=== PATIENT | female | born 1990 | race Caucasian/White ===

== ENCOUNTER 2019-12-23 18:19 | Outpatient (CLI) | payer OTHER, SELFPAY ==
--- NOTE | ~2019-12-23 | XR_ITS ---
EXAMINATION: XR knee LT min 4V DATE: 12/23/2019 18:53 INDICATION: Left knee pain TECHNIQUE: Weight bearing anteroposterior and Guevara, sunrise, and flexed lateral views of the lef t knee were obtained COMPARISON: None. FINDINGS: Alignment is normal. No fracture. Joint spaces are normal. No left knee joint effusion. Soft tissues are unremarkable. IMPRESSION: 1. Normal left knee radiographs. Reviewed, dictated and finalized at location A. R/PHOTOGRAPHER
--- NOTE | ~2019-12-23 | XR_ITS ---
EXAMINATION: XR knee RT min 4V DATE: 12/23/2019 18:53 INDICATION: Right knee pain TECHNIQUE: Weight bearing anteroposterior and Guevara, sunrise, and flexed lateral views of the rig ht knee were obtained COMPARISON: None. FINDINGS: Alignment is normal. No fracture. Joint spaces are normal. Small marginal osteophyte at the cephalad aspect of the patella consistent with likely minimal osteoarthritis. No right knee joint effusion. S oft tissues are unremarkable. IMPRESSION: 1. Likely minimal patellofemoral osteoarthritis at the right knee with small marginal osteophytes but relatively preserved joint space. Reviewed, dictated and finalized at location A. LA OPERATOR INSULATION IMPRESSION: 1. Likely minimal patellofemoral osteoarthritis at the right knee with small ma rginal osteophytes but relatively preserved joint space.
== END 2019-12-23 18:20 | disposition home or self-care (01) ==
LOC: ANHIMG 18:26
PROVIDERS: PCP Physician Assistant; Visit Provider Physician Assistant
DX: M25.561 Pain in right knee (principal)
CPT/HCPCS: 73564

== ENCOUNTER 2020-01-12 16:51 | Emergency (ER) | payer OTHER, SELFPAY ==
[2020-01-12 17:38] VITALS: BP 117/67; PULSE 82; RESP 16; TEMP 36.8; O2SAT 100
[2020-01-12 17:59] LABS: Basophils Percent Auto 0.7 % (0.2-1.2); Eosinophils Absolute Auto 0.1 K/mm3 (0-0.3); Eosinophils Percent Auto 1.1 % (0-4.4); Hematocrit 39.2 % (37.0-47.0); Hemoglobin 12.6 g/dL (12.0-15.0); Immature Granulocyte Absolute 0.01 K/mm3 (0.00-0.031); Immature Granulocyte Percent A 0.2 % (0-0.5); Lymphocytes Absolute Auto 1.82 K/mm3 (0.9-3.2); Mean Corpuscular HGB Conc 32.1 g/dl (32-36); Mean Corpuscular Volume 87.1 fl (80-100); Mean Platelet Volume 9.9 fl (7.4-10.4); Monocytes Absolute Auto 0.5 K/mm3 (0.1-0.6); Monocytes Percent Auto 8.6 % (2.6-8.5); Neutrophils Percent Auto 55.4 % (45.5-73.1); Platelet Count Result 208 k/mm3 (150-375); White Blood Count 5.4 K/mm3 (4.5-10.0)
[2020-01-12 18:04] LABS: Add Urine Microscopic? YES; Appearance Urine Clear (Clear); Bilirubin Urine Negative (Negative); Blood Urine 1+ (Negative); Color Urine Yellow (Yellow); Glucose Urine UA Negative (Negative); Ketones Urine Negative (Negative); Leukocyte Esterase Ur Negative LEU/UL (Negative); Mucus Urine Rare /lpf; Nitrate Urine Negative (Negative); Protein Urine Negative (Negative); RBC Urine 0-2 /hpf (0-2); Specific Grav Ur 1.014 (1.001-1.035); Squamous Epithelial Cell Urine Rare /hpf (Few); Urobilinogen Urine Negative mg/dL (<2.0); WBC Urine 0-3 /hpf
[2020-01-12 18:08] LABS: Chloride 101 mmol/L (98-107)
[2020-01-12 18:35] LABS: Alanine Aminotransferase 20 U/L (4-35); Albumin Level 4.4 g/dL (3.5-5.1); Alkaline Phosphatase 88 U/L (38-126); Aspartate Amino Transferase 25 U/L (14-36); Bilirubin,Total 0.4 mg/dL (0.2-1.3); Blood Urea Nitrogen 11 mg/dL (7-17); Calcium 8.8 mg/dL (8.4-10.2); Carbon Dioxide 25 mmol/L (22-30); Estimated CRCL calculation 129 ml/min; Estimated Glomerular Filt Rate > 60; Glucose 84 mg/dL (65-105); Lipase 47 U/L (23-300); Potassium 4.1 mmol/L (3.4-5.0); Sodium 140 mmol/L (137-145)
--- NOTE | 2020-01-12 19:00 | PC.NURSE ---
Pt left before being seen by provider. Ambulated to vehicle.
== END 2020-01-12 19:00 | disposition left against medical advice (07) ==
PROVIDERS: Emergency Provider Emergency Medicine; PCP Physician Assistant
DX: R10.10 Upper abdominal pain, unspecified (principal)
CPT/HCPCS: 36415; 80053; 81001; 81025; 83690; 85025; 99199

== ENCOUNTER 2020-01-28 10:49 | Outpatient (CLI) | payer OTHER, SELFPAY ==
--- NOTE | ~2020-01-28 | US_ITS ---
EXAMINATION: US pelvic complete w TV DATE: 01/28/2020 11:43 INDICATION: History of uterine fibroids Comparison:No prior studies for comparison. TECHNIQUE: Multiple transabdominal and endovaginal sonographic images of the pelvis performed. FINDINGS: The uterus measures 9.1 x 6.3 x 4.6 cm. There is uterine fibroid measuring 1.5 x 1.4 x 1.3 cm. The endometrial complex measures 11 mm. The right ovary measures 3.7 x 3 x 2.5 cm and the left ovary measures 3.2 x 2.1 x 2 cm. There are sm all follicles in each ovary. There is no free fluid in the pelvis. There are no abnormal masses seen on either side. IMPRESSION: 1. Small uterine fibroid measuring 1.5 cm maximum dimension. Reviewed, dictated and finalized at location A.
== END 2020-01-28 10:50 | disposition home or self-care (01) ==
LOC: ANHIMG 10:57
PROVIDERS: PCP Physician Assistant; Visit Provider Obstetrics & Gynecology Gynecology
DX: D25.9 Leiomyoma of uterus, unspecified (principal)
CPT/HCPCS: 76830; 76856

== ENCOUNTER 2020-05-07 11:36 | Outpatient (CLI) | payer OTHER, SELFPAY ==
--- NOTE | ~2020-05-07 | XR_ITS ---
EXAMINATION: XR lumbar spine 2-3V DATE: 05/07/2020 12:04 INDICATION: Low back pain TECHNIQUE: Anteroposterior and lateral views of the lumbar spine, and cone-down lateral view of the l umbosacral junction were obtained. COMPARISON: None. FINDINGS: There is mild loss of intervertebral disc space height at L5-S1. The vertebral body heights and alignment are maintained. No fracture is identified. There is mild facet osteoarthritis of the l ower lumbar spine. IMPRESSION: 1. Mild lower lumbar spondylosis without acute abnormality. Reviewed, dictated and finalized at location A.
== END 2020-05-07 11:37 | disposition home or self-care (01) ==
LOC: ANHIMG 11:41
PROVIDERS: PCP Physician Assistant; Visit Provider Physician Assistant
DX: M54.5 Low back pain (principal); M47.816 Spondylosis without myelopathy or radiculopathy, lumbar region
CPT/HCPCS: 72100

== ENCOUNTER 2020-05-14 00:26 | Outpatient (CLI) | payer OTHER, SELFPAY ==
[2020-05-14 20:58] LABS: SARS-CoV-2 RNA PCR Negative
== END 2020-05-14 00:27 | disposition home or self-care (01) ==
LOC: ANHCOVIDDT 00:26
PROVIDERS: PCP Physician Assistant; Visit Provider Obstetrics & Gynecology Gynecology
DX: Z01.812 Encounter for preprocedural laboratory examination (principal); Z11.59 Encounter for screening for other viral diseases
CPT/HCPCS: 87635; C9803; U0003

== ENCOUNTER 2020-05-17 01:32 | Day surgery (SDC) | payer OTHER, SELFPAY ==
[2020-05-10 11:36] VITALS: BMI 31.8
--- NOTE | 2020-05-17 07:19 | P.HP_ITS ---
History of Present Illness History of Present Illness Consent: Risks, benefits, and alternatives have been discussed and questions answered. Patient agrees to proceed with procedure. Chief complaint: menorrhaghia, fibroids, Narrative: Dorina Ratliff is a 29 year old female with heavy cycles since 06/06 . Patient needing to change tampon every 30-45 minutes. Cycles are regular. Prior history of known fibroids. Recommend to evaluate with hysteroscopy and D&C with possible myosure. Risks of infection, bleeding, and perforation reviewed. Possible pathology discussed. Agrees to proceed. [facility] Past Medical History Medical History (Updated 05/17/20 @ 07:24 by Anjelica Moran MD) Anxiety Asthma Depression Fatty liver GERD (gastroesophageal reflux disease) Hypothyroid IBS (irritable bowel syndrome) Migraine (normal spontaneous vaginal delivery) x 3 PTSD (post-traumatic stress disorder) Sleep apnea Meds Home Medications and Allergies Home Medications Medication Instructions Recorded Confirmed Type albuterol sulfate 1 inh INHALATION DAILY PRN 05/10/20 05/10/20 History ascorbic acid (vitamin C) [Vitamin 500 mg PO DAILY 05/10/20 05/10/20 History C] azelastine 2 spray INTRANASAL BID 05/10/20 05/10/20 History elderberry fruit and flower 1 cap PO DAILY 05/10/20 05/10/20 History fluticasone propion-salmeterol 1 inh INHALATION DAILY PRN 05/10/20 05/10/20 History fluticasone propionate [Flonase 1 spray INTRANASAL DAILY 05/10/20 05/10/20 History Allergy Relief] levothyroxine 200 mcg PO DAILY 05/10/20 05/10/20 History loratadine 10 mg PO DAILY 05/10/20 05/10/20 History montelukast 10 mg PO DAILY 05/10/20 05/10/20 History pantoprazole [Protonix] 40 mg PO QAM 05/10/20 05/10/20 History Allergies Allergy/AdvReac Type Severity Reaction Status Date / Time NSAIDS (Non-Steroidal Allergy Unknown Dyspnea / Verified 05/10/20 11:36 Anti-Inflamma SOB sulfamethoxazole AdvReac Severe Wheezing Verified 05/10/20 11:36 trimethoprim AdvReac Severe Wheezing Verified 05/10/20 11:36 topiramate AdvReac HALLUCINATI Verified 05/10/20 11:37 ONS Exam Const: General: healthy appearing and alert Orientation/consciousness: patient oriented x3 Resp: Effort & Inspection: normal respiratory effort Auscultation: clear to auscultation bilaterally Cardio: Rate: regular rate Rhythm: regular rhythm GI: GI Palp: Yes Soft to palpation, No Tenderness to palpation present (GI) and No Palpable mass present : External Female Exam: normal external appearance Speculum Exam - Vagina: normal appearance of the vagina and normal vaginal discharge Speculum Exam - Cervix: normal appearance of the cervix Bimanual exam- vagina & uterus: uterine size normal and consistency normal Bimanual Exam- Adnexa, other: normal adnexae and No adnexal tenderness Neuro: General: patient oriented x3 Assessment and Plan Assessment and plan (1) Menorrhagia: Code(s): N92.0 - Excessive and frequent menstruation with regular cycle Status: Acute Assessment and Plan: Plan to proceed with hysteroscopy and D&C
[2020-05-17 08:26] VITALS: BP 130/69; PULSE 95; RESP 20; TEMP 36.9; O2SAT 100
[2020-05-17] MEDS: LACTATED RINGERS 1,000 ML 30 ML IV CONT (09:25)
--- NOTE | 2020-05-17 09:42 | WPDANESEPPF ---
Anes - Initial Pre Proc Eval Procedure: Operation Date: 05/17/20 11:15 Proposed Procedures p Hysteroscopy, Dilation and Curettage - Anjelica Moran MD Date/Time: 05/17/20 09:42 Surgeon: Anjelica Moran MD Pre Op Diagnosis: menorrhaghia, fibroids, Patient Data Age: 29 Gender: F Height: 6 ft Weight: 106.59 kg Allergies Allergy/AdvReac Type Severity Reaction Status Date / Time NSAIDS (Non-Steroidal Allergy Unknown Dyspnea / Verified 05/10/20 11:36 Anti-Inflamma SOB sulfamethoxazole AdvReac Severe Wheezing Verified 05/10/20 11:36 trimethoprim AdvReac Severe Wheezing Verified 05/10/20 11:36 topiramate AdvReac HALLUCINATI Verified 05/10/20 11:37 ONS Home Medications Medication Instructions Recorded Confirmed Type albuterol sulfate 1 inh INHALATION DAILY PRN 05/10/20 05/10/20 History ascorbic acid (vitamin C) [Vitamin 500 mg PO DAILY 05/10/20 05/10/20 History C] azelastine 2 spray INTRANASAL BID 05/10/20 05/10/20 History elderberry fruit and flower 1 cap PO DAILY 05/10/20 05/10/20 History fluticasone propion-salmeterol 1 inh INHALATION DAILY PRN 05/10/20 05/10/20 History fluticasone propionate [Flonase 1 spray INTRANASAL DAILY 05/10/20 05/10/20 History Allergy Relief] levothyroxine 200 mcg PO DAILY 05/10/20 05/10/20 History loratadine 10 mg PO DAILY 05/10/20 05/10/20 History montelukast 10 mg PO DAILY 05/10/20 05/10/20 History pantoprazole [Protonix] 40 mg PO QAM 05/10/20 05/10/20 History Patient hx anesthesia problems: none Family hx anesthesia problems: none PMFSH Past Medical History Medical History (Updated 05/17/20 @ 07:24 by Anjelica Moran MD) Anxiety Asthma Depression Fatty liver GERD (gastroesophageal reflux disease) Hypothyroid IBS (irritable bowel syndrome) Migraine (normal spontaneous vaginal delivery) x 3 PTSD (post-traumatic stress disorder) Sleep apnea Anes - Eval Final PreProcedure Day of Procedure 05/17/20 09:42 Patient weight: obese Heart: regular rate and rhythm Lungs: clear to auscultation Airway: Mallampati scale class II Neurological: alert and oriented Last oral intake: >/= 8 hours ASA classification: III Emergent: no Anesthetic plan: proceed Anesthesia type and monitoring: general GIVS and standard monitoring Informed Consent: The patient's anesthetic plan and its attendant risks and benefits were discussed with the patient/family/POA. Questions were solicited and answers provided to the satisfaction of the patient/family/POA.
--- NOTE | 2020-05-17 10:27 | SUR.OPER ---
EBL:10cc
--- NOTE | 2020-05-17 10:31 | PM.OP ---
Procedure Note - Brief Procedure Note - Brief Date of procedure: 05/17/20 Pre-op diagnosis: menorrhaghia, fibroids, Post-op diagnosis: same Procedure performed: D&C hysteroscopy Anesthesia: MAC and local Surgeon: Anjelica Moran MD Estimated blood loss (mL): 5 Drains: No Packing: No Pathology: yes (endometrial curettings) Complications: No immediate complications Condition: stable Disposition: PACU Findings: uterus 8 cm; grossly normal appearing
[2020-05-17 10:35] VITALS: BP 129/78; PULSE 65; RESP 16; O2SAT 97
[2020-05-17 11:05] VITALS: BP 124/77; PULSE 78
[2020-05-17 11:30] VITALS: BP 115/64; PULSE 59
--- NOTE | 2020-05-17 12:42 | OP_ITS ---
DATE OF PROCEDURE: 05/17/2020 PREOPERATIVE DIAGNOSIS: Menorrhagia. POSTOPERATIVE DIAGNOSIS: Menorrhagia. PROCEDURE: D and C, hysteroscopy. ANESTHESIA: MAC and local. FINDINGS: The uterus sounds to 8 cm and appears grossly normal. ESTIMATED BLOOD LOSS: 5 cc. PATHOLOGY: Endometrial curettings. PROCEDURE: The patient was taken to the operating room, placed under anesthesia, prepped and draped in the usual sterile fashion. Bivalved speculum was placed in the vagina. Cervix was grasped on the anterior lip with a tenaculum and injected with 1% lidocaine. The uterus was sounded to 8 cm. The cervix was serially dilated with Hegar. The diagnostic hysteroscope was placed with the above-stated findings. The hysteroscope was removed. The medium sharp curette was used to sharply curette the endometrium until a good uterine cry was noted in all areas. A moderate amount of material was obtained. All instruments are removed. The patient was awakened from anesthesia and taken to Recovery in stable condition. D I MT: Leilani
== END 2020-05-17 11:39 | disposition home or self-care (01) ==
PROVIDERS: PCP Physician Assistant; Visit Provider Obstetrics & Gynecology Gynecology
PROC: 0U5B8ZZ Destruction of Endometrium, Via Natural or Artificial Opening Endoscopic (ICD-10-PCS; CPT 58563; principal; 2020-05-17 11:15)
DX: N92.0 Excessive and frequent menstruation with regular cycle (principal); J45.909 Unspecified asthma, uncomplicated; E03.9 Hypothyroidism, unspecified; K76.0 Fatty (change of) liver, not elsewhere classified; K21.9 Gastro-esophageal reflux disease without esophagitis; K58.9 Irritable bowel syndrome, unspecified; G47.30 Sleep apnea, unspecified; F43.10 Post-traumatic stress disorder, unspecified; F41.8 Other specified anxiety disorders; E66.9 Obesity, unspecified; Z68.32 Body mass index [BMI] 32.0-32.9, adult
CPT/HCPCS: 58558; 88305; J1100; J2250; J2405; J2704; J3010; J7030; J7120

== ENCOUNTER 2020-06-02 11:00 | Outpatient (RCR) | payer OTHER, SELFPAY ==
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
--- NOTE | 2020-04-20 08:58 | PCPTNOTE ---
Patient did not show up for scheduled appointment this date. Then called 15 min late stating she can't make it.
--- NOTE | 2020-05-10 08:28 | PCPTNOTE ---
Patient did not show up for scheduled appointment this date.
--- NOTE | 2020-05-14 09:11 | PCPTNOTE ---
Patient did not show up for scheduled appointment this date. Will call pt due to repeated no show.
--- NOTE | 2020-05-14 09:13 | PCPTNOTE ---
Pt had called on 05/13/20 to cancel her appt due to having surgery with required isolation.
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
--- NOTE | 2020-06-09 09:43 | PCPTNOTE ---
Pt no-showed on 06/09/20 at 9:15am.
--- NOTE | 2020-06-11 09:52 | PCPTNOTE ---
Patient did not show up for scheduled appointment this date.
--- NOTE | 2020-06-16 15:22 | PCPTNOTE ---
Patient did not show up for scheduled appointment this date.
--- NOTE | 2020-06-18 09:29 | PCPTNOTE ---
Patient did not show up for scheduled appointment this date.Left voicemail regarding no show policy. Will DC therapy services.
--- NOTE | 2020-06-18 09:30 | PCPTNOTE ---
Admitting Provider: Attending Provider: Sandeep Zepeda, PA Patient:Dorina Ratliff Date of :1990 Discharge Note Patient has not returned for any further treatments since 06/02/2020, therefore she will be discharged at this time. Patient?s initial visit was on 04/16/2020 10:30 and she had a total of 8 visits. She did not show for 7 of her therapy appointments. The goals have not been met at this time with limited progress due to poor attendance with therapy. Thank you for referring this patient to [facility]. Please review, sign, date and return this discharge summary BRANDON. I have been updated about the patient's current status and I agree with discharge from the above service at this time. Referring Physician Date
== END 2020-06-21 10:33 | disposition home or self-care (01) ==
LOC: ANHPT 11:00
PROVIDERS: PCP Physician Assistant; Visit Provider Physician Assistant
DX: R10.2 Pelvic and perineal pain (principal); M54.5 Low back pain
CPT/HCPCS: 97014; 97110; 97140; 97162; G0283

== ENCOUNTER 2020-06-25 09:49 | Outpatient (CLI) | payer OTHER, SELFPAY ==
--- NOTE | 2020-06-30 06:44 | WPDPFTINT ---
PFT Interpretation PFT Interpretation: DOS: 06/25/2020 REQUESTING: Tl Villalba MD REASON FOR TESTING: Severe persistent asthma PULMONARY FUNCTION TESTS Results are reproducible and reliable. Spirometry: FEV1 is 106%, FVC is 84%, and FEV1% is 90%, all normal. [id number]% is normal. No bronchodilator was given. Lung volumes: TLC is 77% consistent with mild restriction. RV is 32%, no air trapping is present. Normal airway resistance. Diffusion: DLCO is 74%, mildly decreased. Flow volume loop: Normal. IMPRESSION: Mild restriction with mild diffusion impairment. No prior studies for comparison. Restriction with diffusion impairment can be seen in interstitial lung disease or pneumonitis. Clinical correlation is recommended. Elvi Griffith MD
--- NOTE | 2020-06-30 06:50 | WPDSIXMINUTE ---
Six Minute Walk Six Minute Walk: DOS: 06/25/2020 REQUESTING: Tl Villalba MD REASON FOR TESTING: Severe persistent asthma SIX MINUTE WALK This test was conducted per ATS guidelines. The patient was on room air. Initial saturation was 98% and pulse was 74. The patient walked for 6 minutes without stopping complete 1050 ft/ 320 m. There is no desaturation. Maximum heart rate 115. IMPRESSION: Normal walk study without desaturation. No supplemental oxygen is indicated with exertion.
== END 2020-06-25 09:50 | disposition home or self-care (01) ==
LOC: ANHPFT 09:51
PROVIDERS: PCP Physician Assistant; Visit Provider Internal Medicine Pulmonary Disease
DX: J45.50 Severe persistent asthma, uncomplicated (principal)
CPT/HCPCS: 94375; 94618; 94726; 94729

== ENCOUNTER 2020-07-09 08:40 | Outpatient (CLI) | payer OTHER, SELFPAY ==
--- NOTE | ~2020-07-09 | XR_ITS ---
EXAMINATION: XR chest 2V EXAM DATE: 07/09/2020 09:03 INDICATION: Severe persistent asthma. TECHNIQUE: Frontal and lateral projections of the chest obtained and reviewed. Comparison is made to prior examination from 04/30/2019. FINDINGS: The lungs are clear. There are no pleural effusions. The cardiomediastinal silhouette is within normal limits. There is no pneumothorax suspected. The bones and soft tissues are unremarkab le. Mild hyperinflation. IMPRESSION: Mild hyperinflation. Reviewed, dictated and finalized at location B. IMPRESSION: Mild hyperinflation.
--- NOTE | ~2020-07-09 | XR_ITS ---
EXAMINATION: XR sinus min 3V EXAM DATE: 07/09/2020 09:03 INDICATION: Sinusitis. TECHNIQUE: Frontal, Marnie's, Harden projections of the paranasal sinuses. Lateral and submentovertex projections as well. There is no prior study for comparison. FINDINGS: The sinuses and mastoid air cells appear well-aerated. Please note that mild mucoperiostea l thickening is difficult to identify by this modality. Earrings, nose ring. No other radiopaque fore ign bodies. Orbits unremarkable. IMPRESSION: Unremarkable sinus x-ray exam. Reviewed, dictated and finalized at location B.
[2020-07-09 09:27] LABS: Basophils Percent Auto 0.4 % (0.2-1.2); Eosinophils Absolute Auto 0.1 K/mm3 (0-0.3); Eosinophils Percent Auto 1.6 % (0-4.4); Hematocrit 40.4 % (37.0-47.0); Hemoglobin 13.2 g/dL (12.0-15.0); Immature Granulocyte Absolute 0.01 K/mm3 (0.00-0.031); Immature Granulocyte Percent A 0.1 % (0-0.5); Lymphocytes Absolute Auto 2.04 K/mm3 (0.9-3.2); Lymphocytes Percent Auto 27.4 % (18.3-44.2); Mean Corpuscular HGB Conc 32.7 g/dl (32-36); Mean Corpuscular Hemoglobin 28.8 pg (26-34); Mean Platelet Volume 10.4 fl (7.4-10.4); Monocytes Absolute Auto 0.4 K/mm3 (0.1-0.6); Monocytes Percent Auto 5.9 % (2.6-8.5); Neutrophils Absolute Auto 4.8 K/mm3 (1.3-6.7); Neutrophils Percent Auto 64.6 % (45.5-73.1); Platelet Count Result 188 k/mm3 (150-375); Red Blood Count 4.59 M/mm3 (4.2-5.4); Red Cell Distribution Width 13.4 % (11.5-14.5); White Blood Count 7.5 K/mm3 (4.5-10.0)
[2020-07-14 23:14] LABS: Immunoglobulin E 4 kU/L (<=114)
== END 2020-07-09 08:41 | disposition home or self-care (01) ==
LOC: ANHIMG 08:50
PROVIDERS: PCP Physician Assistant; Visit Provider Internal Medicine Pulmonary Disease
DX: J45.50 Severe persistent asthma, uncomplicated (principal); J30.1 Allergic rhinitis due to pollen; R91.8 Other nonspecific abnormal finding of lung field
CPT/HCPCS: 36415; 70220; 71046; 82785; 85025

== ENCOUNTER 2020-09-03 02:13 | Outpatient (CLI) | payer OTHER, SELFPAY ==
[2020-09-03 18:25] LABS: SARS-CoV-2 RNA PCR Negative
== END 2020-09-03 02:14 | disposition home or self-care (01) ==
LOC: ANHCOVIDDT 02:13
PROVIDERS: PCP Physician Assistant; Visit Provider Obstetrics & Gynecology Gynecology
DX: Z01.812 Encounter for preprocedural laboratory examination (principal); Z20.828 Contact with and (suspected) exposure to other viral communicable diseases
CPT/HCPCS: 87635; C9803; U0003

== ENCOUNTER 2020-09-06 01:37 | Day surgery (SDC) | payer OTHER, SELFPAY ==
[2020-08-24 14:48] VITALS: BMI 32.9
[2020-09-06] VITALS (11 sets, daily range): BP systolic 102–133; BP diastolic 60–88; PULSE 53–85; RESP 14–24; TEMP 36.1–36.2; O2SAT 100
[2020-09-06] MEDS: LACTATED RINGERS 1,000 ML 30 ML IV CONT ×2 (07:20→10:04)
[2020-09-06] MEDS: ACETAMINOPHEN 500 MG TABLET 1000 MG PO (07:21)
--- NOTE | 2020-09-06 07:31 | PM.HPGS ---
History of Present Illness History of Present Illness Consent: Risks, benefits, and alternatives have been discussed and questions answered. Patient agrees to proceed with procedure. Chief complaint: Menorrhaghia/ Desires Sterilization Narrative: Dorina Ratliff is a 30 year old female with menorrhagia and requesting sterilization. Patient had hysteroscopy with D&C 02/05 that was normal. Declined further medical management and plans endometrial ablation. Reviewed risks of infection, bleeding, perforation or injury to organs, tubal failure with ectopic risk, ablation failure and expectations. Reviewed the permanent and irreversible nature of BTL. Patient agrees to proceed. [facility], [facility] Past Medical History Medical History (Updated 09/06/20 @ 07:36 by Anjelica Moran MD) Anxiety Asthma Depression Fatty liver GERD (gastroesophageal reflux disease) Hypothyroid IBS (irritable bowel syndrome) Migraine (normal spontaneous vaginal delivery) x 3 PTSD (post-traumatic stress disorder) Sleep apnea Status post hysteroscopy Social History Social History Smoking packs per day: 1.5 Smoking cigarettes per day: 30.0 Years smoked: 13 Smoking pack-years: 19.50 Smoking status: Former smoker Tobacco type: cigarettes and e-cigarettes/vaping Second hand tobacco smoke exposure: No Alcohol intake: current Drinks per week: 0 Alcohol use details: DRINKS 1X/YEAR Substance use: never Last use: 2017 Living arrangements: with friend(s) Spiritual care concerns: No Meds Home Medications and Allergies Home Medications Medication Instructions Recorded Confirmed Type albuterol sulfate 1 inh INHALATION Q4-6H PRN 05/10/20 08/24/20 History ascorbic acid (vitamin C) [Vitamin 500 mg PO DAILY 05/10/20 08/24/20 History C] azelastine 2 spray INTRANASAL BID 05/10/20 08/24/20 History elderberry fruit and flower 1 cap PO DAILY 05/10/20 08/24/20 History fluticasone propion-salmeterol 1 inh INHALATION BID PRN 05/10/20 08/24/20 History fluticasone propionate [Flonase 1 spray INTRANASAL DAILY 05/10/20 08/24/20 History Allergy Relief] loratadine 10 mg PO DAILY 05/10/20 08/24/20 History montelukast 10 mg PO DAILY 05/10/20 08/24/20 History pantoprazole [Protonix] 40 mg PO QAM 05/10/20 08/24/20 History brimonidine-dorzolamide (PF) 1 drp OPHTHALMIC (EYE) TID 08/24/20 08/24/20 History gabapentin 300 mg PO DAILY 08/24/20 08/24/20 History latanoprost 1 drp OPHTHALMIC (EYE) QPM 08/24/20 08/24/20 History levothyroxine 175 mcg PO DAILY 08/24/20 08/24/20 History tiotropium bromide [Spiriva with 1 cap INHALATION DAILY 08/24/20 08/24/20 History HandiHaler] Allergies Allergy/AdvReac Type Severity Reaction Status Date / Time NSAIDS (Non-Steroidal Allergy Severe Difficulty Verified 05/17/20 09:44 Anti-Inflamma Breathing sulfamethoxazole AdvReac Severe Wheezing Verified 05/17/20 09:44 trimethoprim AdvReac Severe Wheezing Verified 05/17/20 09:44 topiramate AdvReac Mild HALLUCINATI Verified 05/17/20 09:44 ONS Exam Const: General: cooperative and no acute distress : External Female Exam: normal external appearance Speculum Exam - Vagina: normal appearance of the vagina Bimanual exam- vagina & uterus: normal bimanual exam and uterine size normal Bimanual Exam- Adnexa, other: normal adnexae Assessment and Plan Assessment and plan (1) Menorrhagia: Code(s): N92.0 - Excessive and frequent menstruation with regular cycle Status: Acute Assessment and Plan: plan to proceed with endometrial ablation with Susan device (2) Encounter for sterilization: Code(s): Z30.2 - Encounter for sterilization Status: Acute Assessment and Plan: plan to proceed with laparoscopic BTL
--- NOTE | 2020-09-06 07:51 | WPDANESEPPF ---
Anes - Initial Pre Proc Eval Procedure: Operation Date: 09/06/20 08:30 Proposed Procedures p Hysteroscopy, Susan Endometrial Ablation - Anjelica Moran MD s Laparoscopic Bilateral Tubal Ligation With Fallopian Rings - Anjelica Moran MD Date/Time: 09/06/20 07:51 Surgeon: Anjelica Moran MD Pre Op Diagnosis: Menorrhaghia/ Desires Sterilization Patient Data Age: 30 Gender: F Height: 1.83 m Weight: 108.9 kg Last Vital Signs Temp 36.2 C L 09/06/20 06:59 Pulse 70 09/06/20 06:59 Resp 20 09/06/20 06:59 BP 113/64 09/06/20 06:59 Pulse Ox 100 09/06/20 06:59 Allergies Allergy/AdvReac Type Severity Reaction Status Date / Time NSAIDS (Non-Steroidal Allergy Severe Difficulty Verified 05/17/20 09:44 Anti-Inflamma Breathing sulfamethoxazole AdvReac Severe Wheezing Verified 05/17/20 09:44 trimethoprim AdvReac Severe Wheezing Verified 05/17/20 09:44 topiramate AdvReac Mild HALLUCINATI Verified 05/17/20 09:44 ONS Home Medications Medication Instructions Recorded Confirmed Type albuterol sulfate 1 inh INHALATION Q4-6H PRN 05/10/20 08/24/20 History ascorbic acid (vitamin C) [Vitamin 500 mg PO DAILY 05/10/20 08/24/20 History C] azelastine 2 spray INTRANASAL BID 05/10/20 08/24/20 History elderberry fruit and flower 1 cap PO DAILY 05/10/20 08/24/20 History fluticasone propion-salmeterol 1 inh INHALATION BID PRN 05/10/20 08/24/20 History fluticasone propionate [Flonase 1 spray INTRANASAL DAILY 05/10/20 08/24/20 History Allergy Relief] loratadine 10 mg PO DAILY 05/10/20 08/24/20 History montelukast 10 mg PO DAILY 05/10/20 08/24/20 History pantoprazole [Protonix] 40 mg PO QAM 05/10/20 08/24/20 History brimonidine-dorzolamide (PF) 1 drp OPHTHALMIC (EYE) TID 08/24/20 08/24/20 History gabapentin 300 mg PO DAILY 08/24/20 08/24/20 History latanoprost 1 drp OPHTHALMIC (EYE) QPM 08/24/20 08/24/20 History levothyroxine 175 mcg PO DAILY 08/24/20 08/24/20 History tiotropium bromide [Spiriva with 1 cap INHALATION DAILY 08/24/20 08/24/20 History HandiHaler] Patient hx anesthesia problems: none Family hx anesthesia problems: none PMFSH Past Medical History Medical History (Updated 09/06/20 @ 07:36 by Anjelica Moran MD) Anxiety Asthma Depression Fatty liver GERD (gastroesophageal reflux disease) Hypothyroid IBS (irritable bowel syndrome) Migraine (normal spontaneous vaginal delivery) x 3 PTSD (post-traumatic stress disorder) Sleep apnea Status post hysteroscopy Social History Social History Smoking packs per day: 1.5 Smoking cigarettes per day: 30.0 Years smoked: 13 Smoking pack-years: 19.50 Smoking status: Former smoker Tobacco type: cigarettes and e-cigarettes/vaping Second hand tobacco smoke exposure: No Alcohol intake: current Drinks per week: 0 Alcohol use details: DRINKS 1X/YEAR Substance use: never Last use: 2017 Living arrangements: with friend(s) Spiritual care concerns: No Anes - Eval Final PreProcedure Day of Procedure 09/06/20 07:51 Patient weight: obese Heart: regular rate and rhythm Lungs: clear to auscultation and normal air movement Airway: Mallampati scale class II Neurological: alert and oriented Last oral intake: >/= 8 hours ASA classification: III Emergent: no Anesthetic plan: proceed Anesthesia type and monitoring: general GIVS and LMA Informed Consent: The patient's anesthetic plan and its attendant risks and benefits were discussed with the patient/family/POA. Questions were solicited and answers provided to the satisfaction of the patient/family/POA.
--- NOTE | 2020-09-06 08:13 | WPDHPUPDATE1 ---
History and Physical Update Update Date/Time: 09/06/20 08:13 History and Physical has been reviewed, including an updated exam of the patient. There are NO changes in the patient's condition. Risks, benefits, and alternatives have been discussed and questions answered. Patient agrees to proceed with procedure.
--- NOTE | 2020-09-06 09:25 | PM.PROC ---
Procedure Note - Detailed Date of procedure: 09/06/20 Pre-op diagnosis: Menorrhaghia/ Desires Sterilization Post-op diagnosis: same Procedure performed: laparoscopic BTL with falope rings; Susan endometrial ablation Description of procedure: The patient was taken to the operating room, placed under general anesthesia, and prepped and draped in the usual sterile fashion. The bladder is drained with a red rubber catheter. The speculum was placed in the vagina and the cervix grasped on the anterior lip with a tenaculum. The acorn manipulator is placed. The speculum is removed and attention is turned to the abdomen. A vertical skin incision is made in the base of the umbilicus. The abdomen is tented and the Veress needle placed water drop test is normal opening patient pressure is 10mmHg. Upon attempting to obtain pneumoperitoneum the patient quickly went to 15. The long Veress needle is obtained and placed opening patient pressure is 10mmHg water drop test was normal and pneumoperitoneum was obtained to a patient pressure of 15. The Veress needle is removed and the 5mm trocar placed. It is also noted to be too short. The long 5mm trocar is opened and placed. Intra-abdominal placement is confirmed with the laparoscopic. The patient is placed in Trendelenburg. The 8mm trocars placed 2cm above the symphysis pubis under direct visualization. The blunt probe was used to bring the tubes and visualization. The left tube is grasped with the ring applicator and a good loop of tube brought into the applicator. The ring was applied. The right tube is grasped with the applicator and as the ring is applied only a small loop is brought into the applicator. A 2nd set of rings was opened and the right tube was grasped with the ring applicator and a good loop of tube was brought into the applicator and the ring applied. Picture documentation is taken of both sides. Pneumoperitoneum was reduced and the trocars are removed. Skin incisions are closed using 4 0 nylon in interrupted fashion. Attention was returned to the vagina. The bivalve speculum is replaced, the acorn manipulator is removed,the uterus is sounded to 8cm, and the cervix is serially dilated with Hegars to an 8. The diagnostic hysteroscope was placed with no abnormalities noted. The hysteroscope was removed. The manner of a device is opened and placed. It is set at 5cm in length and the cavity assessment passed on the 1st attempt. The treatment that lasted the full 2 minutes. The device is removed and the hysteroscope replaced with good ablation effect noted. All instruments are removed and the patient is awakened from anesthesia. Patient is taken to recovery in stable condition. Anesthesia: GETA Surgeon: Anjelica Moran MD Estimated blood loss (mL): 5 Drains: No Packing: No Pathology: none sent Complications: No immediate complications Condition: stable Disposition: PACU Findings: tubes, ovaries, and uterus appear normal; endometrium appears normal
--- NOTE | 2020-09-06 09:27 | SUR.OPER ---
50ml ns in, 50ml ns out. aware.
[2020-09-06] MEDS: fentaNYL CITRATE INJ (*CRX) 100 MCG/2 ML VIAL 25 MCG IV PUSH ×4 (09:52→10:07)
[2020-09-06] MEDS: HYDROmorphone HCL INJ (*CRX) 1 MG/ML SYR 0.25 MG IV PUSH ×6 (10:10→10:36)
[2020-09-06] MEDS: oxyCODONE HCL (*CRX) 5 MG TAB IR PO (11:27)
== END 2020-09-06 12:36 | disposition home or self-care (01) ==
PROVIDERS: PCP Physician Assistant; Visit Provider Obstetrics & Gynecology Gynecology
PROC: 0U5B8ZZ Destruction of Endometrium, Via Natural or Artificial Opening Endoscopic (ICD-10-PCS; CPT 58563; principal; 2020-09-06 08:30)
PROC: (CPT 58671; 2020-09-06 08:30)
DX: N92.0 Excessive and frequent menstruation with regular cycle (principal); Z30.2 Encounter for sterilization; J45.909 Unspecified asthma, uncomplicated; K76.0 Fatty (change of) liver, not elsewhere classified; K21.9 Gastro-esophageal reflux disease without esophagitis; F41.8 Other specified anxiety disorders; E03.9 Hypothyroidism, unspecified; G47.30 Sleep apnea, unspecified; F43.10 Post-traumatic stress disorder, unspecified; K58.9 Irritable bowel syndrome, unspecified; Z87.891 Personal history of nicotine dependence; E66.9 Obesity, unspecified; Z68.32 Body mass index [BMI] 32.0-32.9, adult
CPT/HCPCS: 58671; 58563; A4264; A9270; J0330; J1100; J1170; J2250; J2405; J2704; J3010; J7030; J7120

== ENCOUNTER 2021-01-06 12:06 | Emergency (ER) | payer OTHER, SELFPAY ==
--- NOTE | ~2021-01-06 | XR_ITS ---
EXAMINATION: XR chest 1V portable INDICATION: Shortness of breath, COVID 19 positive TECHNIQUE: Portable AP chest at 1238 hours COMPARISON: 07/09/2020 FINDINGS: There are airspace opacities of the mid and lower lung zones. No pleural effusion or pneumo thorax is identified. The cardiomediastinal silhouette is normal. The visualized osseous structures a re unremarkable. IMPRESSION: 1. Minimal airspace opacities of the mid and lower lung zones, consistent with atelectasis versus pne umonia. Reviewed, dictated and finalized at location A. [employer] IMPRESSION: 1. Minimal airspace opacities of the mid and lower lung zones, consistent with atelectasis versus pneumonia.
[2021-01-06 12:17] VITALS: BP 144/100; PULSE 105; RESP 18; TEMP 36.7; O2SAT 95
--- NOTE | 2021-01-06 12:21 | ECG_ITS ---
Measurements Intervals [place] Rate: 103 P: 35 WY: 154 QRS: 29 QRSD: 91 T: 30 QT: 335 QTc: 439 Interpretive Statements SINUS TACHYCARDIA DELAYED PRECORDIAL R/S TRANSITION BORDERLINE ECG Electronically Signed On 01-06-2021 12:40:01 [employer] by Juan David Jain D.O.
[2021-01-06 12:39] VITALS: PULSE 87
[2021-01-06 12:44] LABS: Basophils Percent Auto 0.2 % (0.2-1.2); Hematocrit 42.1 % (37.0-47.0); Hemoglobin 13.8 g/dL (12.0-15.0); Immature Granulocyte Absolute 0.01 K/mm3 (0.00-0.031); Immature Granulocyte Percent A 0.2 % (0-0.5); Immature Platelet Fraction Pct 2.6 % (0.9-11.2); Lymphocytes Absolute Auto 1.19 K/mm3 (0.9-3.2); Lymphocytes Percent Auto 24.1 % (18.3-44.2); Mean Corpuscular HGB Conc 32.8 g/dl (32-36); Mean Corpuscular Hemoglobin 29.7 pg (26-34); Mean Corpuscular Volume 90.5 fl (80-100); Mean Platelet Volume 9.9 fl (7.4-10.4); Monocytes Absolute Auto 0.4 K/mm3 (0.1-0.6); Monocytes Percent Auto 8.3 % (2.6-8.5); Neutrophils Absolute Auto 3.3 K/mm3 (1.3-6.7); Neutrophils Percent Auto 67.2 % (45.5-73.1); Platelet Count Result 132 k/mm3 (150-375); Red Blood Count 4.65 M/mm3 (4.2-5.4); Red Cell Distribution Width 13.6 % (11.5-14.5); White Blood Count 4.9 K/mm3 (4.5-10.0)
[2021-01-06 12:54] LABS: Anion Gap 6 mmol/L (8-16); Blood Urea Nitrogen 11 mg/dL (7-17); Calcium 8.2 mg/dL (8.4-10.2); Carbon Dioxide 31 mmol/L (22-30); Chloride 100 mmol/L (98-107); Estimated CRCL calculation 112 ml/min; Estimated Glomerular Filt Rate > 60; Glucose 99 mg/dL (65-105); Potassium 3.4 mmol/L (3.4-5.0); Sodium 137 mmol/L (137-145)
[2021-01-06] MEDS: SODIUM CHLORIDE 0.9% IV 1,000 ML 999 ML IV CONT (13:03)
[2021-01-06 13:16] VITALS: BP 106/69; PULSE 85; RESP 21; O2SAT 98
--- NOTE | 2021-01-06 13:56 | ED.GENADULT ---
HPI - General Adult General Chief complaint: Unspecified Stated complaint: SOB, COVID+ Time Seen by Provider: 01/06/21 12:44 History of Present Illness HPI narrative: Patient is a 22-year-old female who presents ER with fatigue. Patient was diagnosed with COVID-19 1 week ago and reports today was possibly the day she is cleared from isolation. Unfortunately due to feeling fatigued her doctor recommended she come to the ER for further evaluation. Earlier in the week patient has been coughing up rust colored sputum but that has since cleared. Patient has been using her nebulizers at home every 4 hours to help with lung recruitment decreased coughing. Fevers have resolved. No chest pain or chest pressure at this time. Related Data Home Medications Medication Instructions Recorded Confirmed albuterol sulfate 1 inh INHALATION Q4-6H PRN 05/10/20 08/24/20 ascorbic acid (vitamin C) [Vitamin 500 mg PO DAILY 05/10/20 08/24/20 C] azelastine 2 spray INTRANASAL BID 05/10/20 08/24/20 elderberry fruit and flower 1 cap PO DAILY 05/10/20 08/24/20 fluticasone propion-salmeterol 1 inh INHALATION BID PRN 05/10/20 08/24/20 fluticasone propionate [Flonase 1 spray INTRANASAL DAILY 05/10/20 08/24/20 Allergy Relief] loratadine 10 mg PO DAILY 05/10/20 08/24/20 montelukast 10 mg PO DAILY 05/10/20 08/24/20 pantoprazole [Protonix] 40 mg PO QAM 05/10/20 08/24/20 brimonidine-dorzolamide (PF) 1 drp OPHTHALMIC (EYE) TID 08/24/20 08/24/20 gabapentin 300 mg PO DAILY 08/24/20 08/24/20 latanoprost 1 drp OPHTHALMIC (EYE) QPM 08/24/20 08/24/20 levothyroxine 175 mcg PO DAILY 08/24/20 08/24/20 tiotropium bromide [Spiriva with 1 cap INHALATION DAILY 08/24/20 08/24/20 HandiHaler] Allergies Allergy/AdvReac Type Severity Reaction Status Date / Time NSAIDS (Non-Steroidal Allergy Severe Difficulty Verified 05/17/20 09:44 Anti-Inflamma Breathing sulfamethoxazole AdvReac Severe Wheezing Verified 05/17/20 09:44 trimethoprim AdvReac Severe Wheezing Verified 05/17/20 09:44 topiramate AdvReac Mild HALLUCINATI Verified 05/17/20 09:44 ONS Review of Systems Review of Systems: All systems reviewed & are unremarkable except as noted in HPI and below Constitutional: Constitutional: Denies chills, Reports fatigue and Denies fever(s) Cardiovascular: Cardiovascular: Denies chest pain and Denies rapid heart rate Respiratory: Respiratory: Reports cough, Denies hemoptysis, Denies dyspnea and Denies wheezing Gastrointestinal: Gastrointestinal: Denies nausea, Denies vomiting and Denies hematemesis [facility] Past Medical History Medical History (Updated 01/06/21 @ 14:05 by Gavino Grewal MD) Anxiety Asthma Depression Fatty liver GERD (gastroesophageal reflux disease) Hypothyroid IBS (irritable bowel syndrome) Migraine (normal spontaneous vaginal delivery) x 3 PTSD (post-traumatic stress disorder) Sleep apnea Status post hysteroscopy Social History Social History Smoking packs per day: 1.5 Smoking cigarettes per day: 30.0 Years smoked: 13 Smoking pack-years: 19.50 Smoking status: Former smoker Tobacco type: cigarettes and e-cigarettes/vaping Second hand tobacco smoke exposure: No Alcohol intake: current Drinks per week: 0 Substance use: never Last use: 2018 Gender identity (if verbalized by the patient): Female Spiritual care concerns: No Exam Narrative: Exam Narrative: GENERAL: Fatigued-appearing, well-nourished, and in no acute distress. HEAD: Normocephalic, atraumatic.. CHEST: Clear to auscultation. No respiratory distress. HEART: Regular rate and rhythm. Normal peripheral pulses. EXTREMITIES: Normal range of motion. No edema. SKIN: Warm, dry, no rash. NEURO: Alert and oriented x3. PSYCH: Normal mood and affect. Course Course Emergency Course: Normal labs. Lungs clear. Chest x-ray with atelectasis vs pna. May represent covid PNA especially give rust colored sputum earlier in the week. No hypoxia.
[2021-01-06 14:07] VITALS: BP 116/74; PULSE 90; RESP 22; O2SAT 100
[2021-01-06 14:33] VITALS: BP 110/70; PULSE 78; RESP 18; O2SAT 99
== END 2021-01-06 14:34 | disposition home or self-care (01) ==
PROVIDERS: Emergency Provider Emergency Medicine; PCP Physician Assistant
DX: U07.1 COVID-19 (principal); J12.82 Pneumonia due to coronavirus disease 2019; F41.9 Anxiety disorder, unspecified; J45.909 Unspecified asthma, uncomplicated; F32.9 Major depressive disorder, single episode, unspecified; K21.9 Gastro-esophageal reflux disease without esophagitis; E03.9 Hypothyroidism, unspecified
CPT/HCPCS: 36415; 71045; 80048; 85025; 85055; 93005; 96360; 99283; J7030

== ENCOUNTER 2021-02-18 14:54 | Emergency (ER) | payer OTHER, SELFPAY ==
--- NOTE | ~2021-02-18 | CT_ITS ---
EXAMINATION: CTA brain carotid DATE: 02/18/2021 17:51 INDICATION: Weakness of the legs. Blurred vision. TECHNIQUE: Computed tomographic angiography (CTA) of the head was performed without and with 100 mL O mnipaque-350 intravenous contrast. CTA of the neck was performed with intravenous contrast. Automated exposure control and iterative reconstruction technique were employed. The dose-length product was 1 920.35 mGy-cm. Maximum intensity projection and volume rendered 3D-reconstructions were created by benedict coker technologist on a separate workstation. COMPARISON: None. FINDINGS: HEAD CTA: There is no intracranial hemorrhage, acute infarction, or abnormal intracranial mass lesion . The ventricles are normal in size. There is mild mucosal thickening in the paranasal sinuses. The m astoid air cells are normal. The orbits are normal. The vertebral arteries are codominant. There is n o significant stenosis of basilar artery or the posterior cerebral arteries. There is no significant stenosis of the intracranial internal carotid arteries or anterior or middle cerebral arteries. Anter ior communicating artery is normal. Posterior communicating arteries are not visualized. There is no aneurysm. NECK CTA: There are no pathologically enlarged lymph nodes. There is no visible plaque in the proxima l internal carotid arteries. There is 0% stenosis of the proximal right internal carotid artery relat [place] to normal distal artery lumen diameter (NASCET criteria). There is 0% stenosis of the proximal le ft internal carotid artery relative to normal distal artery lumen diameter. There is mild cervical sp ondylosis. IMPRESSION: 1. Normal brain. No aneurysm or significant intracranial arterial stenosis. 2. 0% stenosis of the proximal internal carotid arteries relative to normal distal artery lumen diame ters (NASCET criteria). Reviewed, dictated and finalized at location A. IMPRESSION: 1. Normal brain. No aneurysm or significant intracranial arterial stenosis. 2. 0% stenosis of the proximal internal carotid arteries relative to normal dis rik artery lumen diameters (NASCET criteria).
--- NOTE | ~2021-02-18 | XR_ITS ---
EXAMINATION: XR chest 1V DATE: 02/18/2021 17:53 INDICATION: Weakness of the legs. Blurred vision. TECHNIQUE: A single frontal view of the chest was obtained. COMPARISON: Chest single view 01/06/2021 FINDINGS: The chest demonstrates clear lungs without pneumonia, pleural effusion, or pneumothorax. Th e heart size is normal. IMPRESSION: 1. No acute cardiopulmonary disease. Reviewed, dictated and finalized at location A.
[2021-02-18 15:00] VITALS: BP 125/78; PULSE 80; RESP 20; TEMP 36; O2SAT 100
[2021-02-18 15:18] LABS: Basophils Absolute Auto 0.1 K/mm3 (0.0-0.1); Basophils Percent Auto 0.5 % (0.2-1.2); Eosinophils Absolute Auto 0.1 K/mm3 (0-0.3); Eosinophils Percent Auto 0.9 % (0-4.4); Hematocrit 39.9 % (37.0-47.0); Immature Granulocyte Absolute 0.02 K/mm3 (0.00-0.031); Immature Granulocyte Percent A 0.2 % (0-0.5); Lymphocytes Absolute Auto 3.77 K/mm3 (0.9-3.2); Mean Corpuscular HGB Conc 32.6 g/dl (32-36); Mean Corpuscular Hemoglobin 30.2 pg (26-34); Mean Corpuscular Volume 92.8 fl (80-100); Mean Platelet Volume 10.4 fl (7.4-10.4); Monocytes Absolute Auto 0.5 K/mm3 (0.1-0.6); Monocytes Percent Auto 4.6 % (2.6-8.5); Neutrophils Absolute Auto 5.8 K/mm3 (1.3-6.7); Neutrophils Percent Auto 56.8 % (45.5-73.1); Platelet Count Result 197 k/mm3 (150-375); Red Cell Distribution Width 13.4 % (11.5-14.5); White Blood Count 10.2 K/mm3 (4.5-10.0)
[2021-02-18 15:27] LABS: INR 0.9; Prothrombin Time 13.2 Seconds (11.1-14.7)
[2021-02-18 15:28] LABS: Partial Thromboplastin Time 23.7 SECONDS (22.3-36.8)
[2021-02-18 15:30] LABS: Anion Gap 7 mmol/L (8-16); Blood Urea Nitrogen 23 mg/dL (7-17); Calcium 8.9 mg/dL (8.4-10.2); Carbon Dioxide 29 mmol/L (22-30); Chloride 104 mmol/L (98-107); Estimated CRCL calculation 111 ml/min; Estimated Glomerular Filt Rate > 60; Glucose 109 mg/dL (65-105); Potassium 3.3 mmol/L (3.4-5.0); Sodium 140 mmol/L (137-145)
[2021-02-18 15:42] LABS: Troponin I < 0.012 ng/mL (0.000-0.034)
[2021-02-18 18:31] VITALS: BP 121/85; PULSE 71; RESP 16; O2SAT 100
--- NOTE | 2021-02-18 18:59 | ED.NEUROSD ---
HPI - Neuro Symptoms/Deficit General Chief Complaint: Neuro Symptoms/Deficit Stated Complaint: blurred vision Time Seen by Provider: 02/18/21 18:57 History of Present Illness HPI Narrative: Intermittent vision changes for quite some time. Vary in the specific deficits. Since this moring she reports that vision is blurry in the right eye and She can only see in the right visual field out of the left eye. She reports that she recently saw an agronomy advisor for these issues and was told that her eyes were fine. She has also been seen by a neurologist for similar symptoms in the past She only came in [facility] she was required to by her employer after they heard her talking about her symptoms. She also reports some bilateral leg weakness, which has also been present for quite some time. Related Data Home Medications Medication Instructions Recorded Confirmed albuterol sulfate 1 inh INHALATION Q4-6H PRN 05/10/20 08/24/20 ascorbic acid (vitamin C) [Vitamin 500 mg PO DAILY 05/10/20 08/24/20 C] azelastine 2 spray INTRANASAL BID 05/10/20 08/24/20 elderberry fruit and flower 1 cap PO DAILY 05/10/20 08/24/20 fluticasone propion-salmeterol 1 inh INHALATION BID PRN 05/10/20 08/24/20 fluticasone propionate [Flonase 1 spray INTRANASAL DAILY 05/10/20 08/24/20 Allergy Relief] loratadine 10 mg PO DAILY 05/10/20 08/24/20 montelukast 10 mg PO DAILY 05/10/20 08/24/20 pantoprazole [Protonix] 40 mg PO QAM 05/10/20 08/24/20 brimonidine-dorzolamide (PF) 1 drp OPHTHALMIC (EYE) TID 08/24/20 08/24/20 gabapentin 300 mg PO DAILY 08/24/20 08/24/20 latanoprost 1 drp OPHTHALMIC (EYE) QPM 08/24/20 08/24/20 levothyroxine 175 mcg PO DAILY 08/24/20 08/24/20 tiotropium bromide [Spiriva with 1 cap INHALATION DAILY 08/24/20 08/24/20 HandiHaler] Allergies Allergy/AdvReac Type Severity Reaction Status Date / Time NSAIDS (Non-Steroidal Allergy Severe Difficulty Verified 06/29/20 09:44 Anti-Inflamma Breathing sulfamethoxazole AdvReac Severe Wheezing Verified 05/17/20 09:44 trimethoprim AdvReac Severe Wheezing Verified 05/17/20 09:44 topiramate AdvReac Mild HALLUCINATI Verified 05/17/20 09:44 ONS Review of Systems Review of Systems: All systems reviewed & are unremarkable except as noted in HPI and below Constitutional: Constitutional: Denies fever(s) Eyes: Eyes: Reports as per HPI Cardiovascular: Cardiovascular: Denies chest pain Respiratory: Respiratory: Denies dyspnea Neurologic: Denies confusion, Denies dizziness and Reports headache(s) Psychiatric: Psychiatric: Reports anxiety and Reports depression [facility] Past Medical History Medical History Anxiety Asthma Depression Fatty liver GERD (gastroesophageal reflux disease) Hypothyroid IBS (irritable bowel syndrome) Migraine (normal spontaneous vaginal delivery) x 3 PTSD (post-traumatic stress disorder) Sleep apnea Status post hysteroscopy Social History Social History Smoking packs per day: 1.5 Smoking cigarettes per day: 30.0 Years smoked: 13 Smoking pack-years: 19.50 Smoking status: Former smoker Tobacco type: cigarettes and e-cigarettes/vaping Second hand tobacco smoke exposure: No Alcohol intake: current Drinks per week: 0 Substance use: never Last use: 2018 Gender identity (if verbalized by the patient): Female Spiritual care concerns: No Exam Const: General: no acute distress Orientation/consciousness: patient oriented x3 HENMT: Head: normal to inspection Ears: external ears normal and TM's normal bilaterally Face and sinus: normal facial exam Eyes: General: appearance normal, both eyes and all related structures Visual Renee: normal visual renee by confrontation Alignment and Position: alignment normal and position normal Periorbital: periorbital findings normal Eyelids: eyelids normal Conjunctivae: conjunctivae normal Sclera: sclerae normal Pupils: Equal, roun
[2021-02-18 19:25] VITALS: BP 124/84; PULSE 83; RESP 16; O2SAT 94
== END 2021-02-18 19:27 | disposition home or self-care (01) ==
PROVIDERS: Emergency Medicine; Emergency Provider Emergency Medicine; PCP Physician Assistant
DX: H53.8 Other visual disturbances (principal); J45.909 Unspecified asthma, uncomplicated; K21.9 Gastro-esophageal reflux disease without esophagitis; E03.9 Hypothyroidism, unspecified; K58.9 Irritable bowel syndrome, unspecified; G47.30 Sleep apnea, unspecified; Z87.891 Personal history of nicotine dependence
CPT/HCPCS: 36415; 70496; 70498; 71045; 80048; 81025; 84484; 85025; 85610; 85730; 99284; Q9967

== ENCOUNTER 2021-06-29 05:34 | Emergency (ER) | payer OTHER, SELFPAY ==
[2021-06-29 05:38] VITALS: BP 135/99; PULSE 82; RESP 16; TEMP 37; O2SAT 100
[2021-06-29 06:47] VITALS: BP 108/69; PULSE 79; RESP 14; O2SAT 99
--- NOTE | 2021-06-29 07:27 | ED.EXTPRO ---
HPI - Extremity Problem General Chief complaint: Extremity Problem,Nontraumatic Stated complaint: left leg pain Time Seen by Provider: 06/29/21 07:07 History of Present Illness HPI Narrative: left thigh pain since. First noted what looked like a large mosquito bite yesterday afternoon. Since that time it has become painful and she has developed bruising all around the area. She does note brown recluse spiders in her garage. Related Data Home Medications Medication Instructions Recorded Confirmed albuterol sulfate 1 inh INHALATION Q4-6H PRN 05/10/20 08/24/20 ascorbic acid (vitamin C) [Vitamin 500 mg PO DAILY 05/10/20 08/24/20 C] azelastine 2 spray INTRANASAL BID 05/10/20 08/24/20 elderberry fruit and flower 1 cap PO DAILY 05/10/20 08/24/20 fluticasone propion-salmeterol 1 inh INHALATION BID PRN 05/10/20 08/24/20 fluticasone propionate [Flonase 1 spray INTRANASAL DAILY 05/10/20 08/24/20 Allergy Relief] loratadine 10 mg PO DAILY 05/10/20 08/24/20 montelukast 10 mg PO DAILY 05/10/20 08/24/20 pantoprazole [Protonix] 40 mg PO QAM 05/10/20 08/24/20 brimonidine-dorzolamide (PF) 1 drp OPHTHALMIC (EYE) TID 08/24/20 08/24/20 gabapentin 300 mg PO DAILY 08/24/20 08/24/20 latanoprost 1 drp OPHTHALMIC (EYE) QPM 08/24/20 08/24/20 levothyroxine 175 mcg PO DAILY 08/24/20 08/24/20 tiotropium bromide [Spiriva with 1 cap INHALATION DAILY 08/24/20 08/24/20 HandiHaler] Allergies Allergy/AdvReac Type Severity Reaction Status Date / Time NSAIDS (Non-Steroidal Allergy Severe Difficulty Verified 06/29/21 06:49 Anti-Inflamma Breathing sulfamethoxazole AdvReac Severe Wheezing Verified 06/29/21 06:49 trimethoprim AdvReac Severe Wheezing Verified 06/29/21 06:49 topiramate AdvReac Mild HALLUCINATI Verified 06/29/21 06:49 ONS Review of Systems Review of Systems: All systems reviewed & are unremarkable except as noted in HPI and below Constitutional: Constitutional: Denies chills and Denies fever(s) Cardiovascular: Cardiovascular: Denies chest pain Respiratory: Respiratory: Denies dyspnea Gastrointestinal: Gastrointestinal: Denies nausea Neurologic: Denies numbness and Denies weakness COUNT INCLUDES THE [facility] Past Medical History Medical History Anxiety Asthma Depression Fatty liver GERD (gastroesophageal reflux disease) Hypothyroid IBS (irritable bowel syndrome) Migraine (normal spontaneous vaginal delivery) x 3 PTSD (post-traumatic stress disorder) Sleep apnea Status post hysteroscopy Social History Social History Smoking packs per day: 1.5 Smoking cigarettes per day: 30.0 Years smoked: 13 Smoking pack-years: 19.50 Smoking status: Former smoker Tobacco type: cigarettes and e-cigarettes/vaping Second hand tobacco smoke exposure: No Alcohol intake: current Drinks per week: 0 Alcohol use details: DRINKS 1X/YEAR Substance use: never Last use: 2018 Gender identity (if verbalized by the patient): Female Spiritual care concerns: No Exam Const: General: healthy appearing, no acute distress and alert Orientation/consciousness: patient oriented x3 HENMT: Head: normal to inspection Resp: Effort & Inspection: normal respiratory effort Auscultation: clear to auscultation bilaterally, no rales, no rhonchi and no wheezes Cardio: Jugular venous distension: no JVD Rate: regular rate Rhythm: regular rhythm Heart sounds: no murmurs Skin: General skin exam: normal color Neuro: General: patient oriented x3 and moves all extremities Speech: normal speech Extrem: Other: Large tender bruise to left thigh. No wound noted. Psych: Appearance: well kempt Affect: normal affect Course Vital Signs Vital signs: Vital Signs Temperature 37.0 C 06/29/21 05:38 Pulse Rate 82 06/29/21 05:38 Respiratory Rate 16 06/29/21 05:38 Blood Pressure 135/99 H 06/29/21 05:38 Pulse Oximetry
[2021-06-29] MEDS: traMADol HCL (*CRX) 50 MG TABLET PO (08:12)
[2021-06-29] MEDS: predniSONE 20 MG TABLET 60 MG PO (08:27)
[2021-06-29] MEDS: CEPHALEXIN 500 MG CAPSULE PO (08:27)
[2021-06-29 09:00] VITALS: BP 103/64; PULSE 70; RESP 18; O2SAT 100
== END 2021-06-29 08:50 | disposition home or self-care (01) ==
PROVIDERS: Emergency Provider Emergency Medicine; PCP Physician Assistant
DX: T63.331A Toxic effect of venom of brown recluse spider, accidental (unintentional), initial encounter (principal); J45.909 Unspecified asthma, uncomplicated; K21.9 Gastro-esophageal reflux disease without esophagitis; E03.9 Hypothyroidism, unspecified; K58.9 Irritable bowel syndrome, unspecified; G47.30 Sleep apnea, unspecified
CPT/HCPCS: 99283; A9270; J7512

== ENCOUNTER 2021-07-02 16:03 | Emergency (ER) | payer OTHER, SELFPAY ==
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
--- NOTE | 2021-07-02 16:07 | ECG_ITS ---
Measurements Intervals [place] Rate: 79 P: 32 WY: 140 QRS: 27 QRSD: 92 T: 71 QT: 361 QTc: 415 Interpretive Statements SINUS RHYTHM BORDERLINE ST-T WAVE ABNORMALITY- HIGH LATERAL LEADS BASELINE WANDER- V4-V6 BORDERLINE ECG Electronically Signed On 07-02-2021 20:04:32 CDT by Juan David Jain D.O.
[2021-07-02 16:08] VITALS: BP 132/83; PULSE 84; RESP 20; TEMP 35.9; O2SAT 100
[2021-07-02 16:29] LABS: Basophils Percent Auto 0.2 % (0.2-1.2); Eosinophils Percent Auto 0.1 % (0-4.4); Hematocrit 44.3 % (37.0-47.0); Hemoglobin 14.3 g/dL (12.0-15.0); Immature Granulocyte Absolute 0.05 K/mm3 (0.00-0.031); Immature Granulocyte Percent A 0.4 % (0-0.5); Lymphocytes Absolute Auto 0.96 K/mm3 (0.9-3.2); Lymphocytes Percent Auto 7.4 % (18.3-44.2); Mean Corpuscular HGB Conc 32.3 g/dl (32-36); Mean Corpuscular Hemoglobin 29.7 pg (26-34); Mean Corpuscular Volume 92.1 fl (80-100); Monocytes Absolute Auto 0.1 K/mm3 (0.1-0.6); Monocytes Percent Auto 0.9 % (2.6-8.5); Neutrophils Absolute Auto 11.8 K/mm3 (1.3-6.7); Platelet Count Result 242 k/mm3 (150-375); Red Blood Count 4.81 M/mm3 (4.2-5.4); Red Cell Distribution Width 13.5 % (11.5-14.5)
[2021-07-02 16:38] LABS: Anion Gap 11 mmol/L (8-16); Blood Urea Nitrogen 15 mg/dL (7-17); Calcium 9.8 mg/dL (8.4-10.2); Carbon Dioxide 25 mmol/L (22-30); Chloride 103 mmol/L (98-107); Estimated CRCL calculation 103 ml/min; Estimated Glomerular Filt Rate > 60; Glucose 153 mg/dL (65-110); Potassium 4.2 mmol/L (3.4-5.0); Sodium 139 mmol/L (137-145)
[2021-07-02 16:39] LABS: INR 0.9; Prothrombin Time 11.7 Seconds (11.1-14.7)
[2021-07-02 16:42] LABS: Partial Thromboplastin Time 22.6 SECONDS (22.3-36.8)
[2021-07-02 16:50] LABS: Troponin I < 0.012 ng/mL (0.000-0.034)
--- NOTE | 2021-07-02 18:44 | ED.CHESTPAIN ---
HPI - Chest Pain General Chief Complaint: Chest Pain Stated Complaint: worsening pain from previous spider bite Time Seen by Provider: 07/02/21 18:03 History of Present Illness HPI narrative: Patient presents with leg pain and chest pain. Patient for she was seen a couple days ago for a spider bite. Reports continued pain along her spider bite that radiates down her leg. She also reports since starting the antibiotic and steroid she is noted chest discomfort. Her chest discomfort exacerbated as soon as she takes the pill and is at its minimal pain just prior to her next dose. She denies pain with deep inspiration she denies pain activity. Pain is achy in the middle of her chest without radiation has been constant for the past 2-3 days Related Data Home Medications Medication Instructions Recorded Confirmed albuterol sulfate 1 inh INHALATION Q4-6H PRN 05/10/20 08/24/20 ascorbic acid (vitamin C) [Vitamin 500 mg PO DAILY 05/10/20 08/24/20 C] azelastine 2 spray INTRANASAL BID 05/10/20 08/24/20 elderberry fruit and flower 1 cap PO DAILY 05/10/20 08/24/20 fluticasone propion-salmeterol 1 inh INHALATION BID PRN 05/10/20 08/24/20 fluticasone propionate [Flonase 1 spray INTRANASAL DAILY 05/10/20 08/24/20 Allergy Relief] loratadine 10 mg PO DAILY 05/10/20 08/24/20 montelukast 10 mg PO DAILY 05/10/20 08/24/20 pantoprazole [Protonix] 40 mg PO QAM 05/10/20 08/24/20 brimonidine-dorzolamide (PF) 1 drp OPHTHALMIC (EYE) TID 08/24/20 08/24/20 gabapentin 300 mg PO DAILY 08/24/20 08/24/20 latanoprost 1 drp OPHTHALMIC (EYE) QPM 08/24/20 08/24/20 levothyroxine 175 mcg PO DAILY 08/24/20 08/24/20 tiotropium bromide [Spiriva with 1 cap INHALATION DAILY 08/24/20 08/24/20 HandiHaler] Allergies Allergy/AdvReac Type Severity Reaction Status Date / Time NSAIDS (Non-Steroidal Allergy Severe Difficulty Verified 06/29/21 06:49 Anti-Inflamma Breathing sulfamethoxazole AdvReac Severe Wheezing Verified 06/29/21 06:49 trimethoprim AdvReac Severe Wheezing Verified 06/29/21 06:49 topiramate AdvReac Mild HALLUCINATI Verified 06/29/21 06:49 ONS Review of Systems Review of Systems: CONSTITUTIONAL: Denies fever, chills, or sweats. EYES: Denies visual changes, redness, or discharge. ENT: Denies rhinorrhea, congestion, sore throat, or otalgia. CARDIOVASCULAR: Denies palpitations, or edema. RESPIRATORY: Denies cough or dyspnea. GASTROINTESTINAL: Denies abdominal pain, nausea, vomiting, or diarrhea. GENITOURINARY: Denies dysuria or hematuria. SKIN: Denies rash or itching. MUSCULOSKELETAL: Denies back pain, or myalgia. NEUROLOGIC: Denies headache, numbness, dizziness, or weakness. PSYCHIATRIC: Denies anxiety or depression. All systems reviewed & are unremarkable except as noted in HPI and below PMFSH Past Medical History Medical History Anxiety Asthma Depression Fatty liver GERD (gastroesophageal reflux disease) Hypothyroid IBS (irritable bowel syndrome) Migraine (normal spontaneous vaginal delivery) x 3 PTSD (post-traumatic stress disorder) Sleep apnea Status post hysteroscopy Social History Social History Smoking packs per day: 1.5 Smoking cigarettes per day: 30.0 Years smoked: 13 Smoking pack-years: 19.50 Smoking status: Former smoker Tobacco type: cigarettes and e-cigarettes/vaping Second hand tobacco smoke exposure: No Alcohol intake: current Drinks per week: 0 Alcohol use details: DRINKS 1X/YEAR Substance use: never Last use: 2017 Gender identity (if verbalized by the patient): Female Spiritual care concerns: No Exam Narrative: GENERAL: Well-appearing, well-nourished, and in no acute distress. HEAD: Normocephalic, atraumatic. EYES: PERRLA and EOMI. ENT: Nares clear, no rhinorrhea or epistaxis. Mucous membranes moist. NECK: Supple. No masses. No JVD CHEST: Clear to auscultatio
[2021-07-02 19:17] VITALS: BP 128/67; PULSE 77; RESP 18; O2SAT 98
== END 2021-07-02 19:18 | disposition home or self-care (01) ==
PROVIDERS: Emergency Medicine; Emergency Provider Emergency Medicine; PCP Physician Assistant
DX: K20.80 Other esophagitis without bleeding (principal); T63.331D Toxic effect of venom of brown recluse spider, accidental (unintentional), subsequent encounter; J45.909 Unspecified asthma, uncomplicated; K21.9 Gastro-esophageal reflux disease without esophagitis; E03.9 Hypothyroidism, unspecified; K58.9 Irritable bowel syndrome, unspecified; G47.30 Sleep apnea, unspecified; Z87.891 Personal history of nicotine dependence; R94.31 Abnormal electrocardiogram [ECG] [EKG]
CPT/HCPCS: 36415; 71046; 80048; 84484; 85025; 85610; 85730; 93005; 99284

== ENCOUNTER 2021-07-12 11:56 | Emergency (ER) | payer OTHER, SELFPAY ==
[2021-07-12 12:18] VITALS: BP 141/93; PULSE 72; RESP 14; TEMP 37.1; O2SAT 100
--- NOTE | 2021-07-12 12:40 | ED.WOUNDLAC ---
HPI - Wound/Laceration General Chief Complaint: Wound/Laceration Stated Complaint: leg wound Time Seen by Provider: 07/12/21 12:16 Source: patient History of Present Illness HPI narrative: Patient presents with an insect wound to the left side. Jean she has had the wound for approximately 2 weeks she has been on antibiotics and steroids but her pain has increased and her wound is now blistering she was concerned so wanted to come in for evaluation. Pain is achy, constant, radiates from her thigh to her head worse with walking around. She denies any focal numbness or weakness. Related Data Home Medications Medication Instructions Recorded Confirmed albuterol sulfate 1 inh INHALATION Q4-6H PRN 05/10/20 08/24/20 ascorbic acid (vitamin C) [Vitamin 500 mg PO DAILY 05/10/20 08/24/20 C] azelastine 2 spray INTRANASAL BID 05/10/20 08/24/20 elderberry fruit and flower 1 cap PO DAILY 05/10/20 08/24/20 fluticasone propion-salmeterol 1 inh INHALATION BID PRN 05/10/20 08/24/20 fluticasone propionate [Flonase 1 spray INTRANASAL DAILY 05/10/20 08/24/20 Allergy Relief] loratadine 10 mg PO DAILY 05/10/20 08/24/20 montelukast 10 mg PO DAILY 05/10/20 08/24/20 pantoprazole [Protonix] 40 mg PO QAM 05/10/20 08/24/20 brimonidine-dorzolamide (PF) 1 drp OPHTHALMIC (EYE) TID 08/24/20 08/24/20 gabapentin 300 mg PO DAILY 08/24/20 08/24/20 latanoprost 1 drp OPHTHALMIC (EYE) QPM 08/24/20 08/24/20 levothyroxine 175 mcg PO DAILY 08/24/20 08/24/20 tiotropium bromide [Spiriva with 1 cap INHALATION DAILY 08/24/20 08/24/20 HandiHaler] hydrocodone-acetaminophen [Goltry] 1 tablet PO Q4H PRN 07/12/21 Allergies Allergy/AdvReac Type Severity Reaction Status Date / Time NSAIDS (Non-Steroidal Allergy Severe Difficulty Verified 07/12/21 12:23 Anti-Inflamma Breathing sulfamethoxazole AdvReac Severe Wheezing Verified 07/12/21 12:23 trimethoprim AdvReac Severe Wheezing Verified 07/12/21 12:23 topiramate AdvReac Mild HALLUCINATI Verified 07/12/21 12:23 ONS Review of Systems Review of Systems: CONSTITUTIONAL: Denies fever, chills, or sweats. EYES: Denies visual changes, redness, or discharge. ENT: Denies rhinorrhea, congestion, sore throat, or otalgia. CARDIOVASCULAR: Denies chest pain, palpitations, or edema. RESPIRATORY: Denies cough or dyspnea. GASTROINTESTINAL: Denies abdominal pain, nausea, vomiting, or diarrhea. GENITOURINARY: Denies dysuria or hematuria. SKIN: Denies rash or itching. MUSCULOSKELETAL: Denies back pain, joint pain, or myalgia. NEUROLOGIC: Denies headache, numbness, dizziness, or weakness. PSYCHIATRIC: Denies anxiety or depression. All systems reviewed & are unremarkable except as noted in HPI and below PMFSH Past Medical History Medical History Anxiety Asthma Depression Fatty liver GERD (gastroesophageal reflux disease) Hypothyroid IBS (irritable bowel syndrome) Migraine (normal spontaneous vaginal delivery) x 3 PTSD (post-traumatic stress disorder) Sleep apnea Status post hysteroscopy Social History Social History Smoking packs per day: 1.5 Smoking cigarettes per day: 30.0 Years smoked: 13 Smoking pack-years: 19.50 Smoking status: Former smoker Tobacco type: cigarettes and e-cigarettes/vaping Second hand tobacco smoke exposure: No Alcohol intake: current Drinks per week: 0 Alcohol use details: DRINKS 1X/YEAR Substance use: never Last use: 2017 Gender identity (if verbalized by the patient): Female Spiritual care concerns: No Exam Narrative: GENERAL: Well-appearing, well-nourished, and in no acute distress. HEAD: Normocephalic, atraumatic. EYES: PERRLA and EOMI. ENT: Nares clear, no rhinorrhea or epistaxis. Mucous membranes moist. NECK: Supple. No masses. No JVD EXTREMITIES: Exam 2 x 2 centimeter ecchymosis on the lateral proximal aspect of the left thigh with
[2021-07-12 13:23] LABS: Anion Gap 7 mmol/L (8-16); Basophils Absolute Auto 0.1 K/mm3 (0.0-0.1); Basophils Percent Auto 0.7 % (0.2-1.2); Blood Urea Nitrogen 14 mg/dL (7-17); CRP 0.6 mg/dL (<1.0); Calcium 9.3 mg/dL (8.4-10.2); Carbon Dioxide 27 mmol/L (22-30); Chloride 104 mmol/L (98-107); Eosinophils Absolute Auto 0.1 K/mm3 (0-0.3); Eosinophils Percent Auto 1.4 % (0-4.4); Estimated CRCL calculation 120 ml/min; Estimated Glomerular Filt Rate > 60; Glucose 86 mg/dL (65-110); Hematocrit 39.6 % (37.0-47.0); Immature Granulocyte Absolute 0.03 K/mm3 (0.00-0.031); Immature Granulocyte Percent A 0.3 % (0-0.5); Lymphocytes Absolute Auto 2.43 K/mm3 (0.9-3.2); Lymphocytes Percent Auto 25.3 % (18.3-44.2); Mean Corpuscular HGB Conc 32.8 g/dl (32-36); Mean Corpuscular Hemoglobin 29.8 pg (26-34); Mean Corpuscular Volume 90.8 fl (80-100); Mean Platelet Volume 10.1 fl (7.4-10.4); Monocytes Absolute Auto 0.6 K/mm3 (0.1-0.6); Monocytes Percent Auto 6.1 % (2.6-8.5); Neutrophils Absolute Auto 6.4 K/mm3 (1.3-6.7); Neutrophils Percent Auto 66.2 % (45.5-73.1); Platelet Count Result 211 k/mm3 (150-375); Red Blood Count 4.36 M/mm3 (4.2-5.4); Red Cell Distribution Width 13.3 % (11.5-14.5); Sodium 138 mmol/L (137-145); White Blood Count 9.6 K/mm3 (4.5-10.0)
[2021-07-12 13:37] LABS: Beta HCG Quantitative < 2.39 mIU/ML
[2021-07-12] MEDS: ACETAMINOPHEN 500 MG TABLET 1000 MG PO (14:32)
--- NOTE | 2021-07-12 14:33 | PC.NURSE ---
Spoke to radiology, patient to be taken to CT soon.
[2021-07-12 14:41] LABS: Erythrocyte Sedimentation Rate 17 mm/hr (0-20)
[2021-07-12 15:02] VITALS: TEMP 37.1
[2021-07-12 15:20] VITALS: BP 104/62; PULSE 65; RESP 14; O2SAT 99
--- NOTE | 2021-07-12 15:34 | PC.NURSE ---
Awaiting to have patient taken to CT at this time.
== END 2021-07-12 15:54 | disposition home or self-care (01) ==
PROVIDERS: Emergency Provider Emergency Medicine; PCP Physician Assistant
DX: T63.331A Toxic effect of venom of brown recluse spider, accidental (unintentional), initial encounter (principal); F41.9 Anxiety disorder, unspecified; F32.9 Major depressive disorder, single episode, unspecified; E03.9 Hypothyroidism, unspecified; Z87.891 Personal history of nicotine dependence; Z79.891 Long term (current) use of opiate analgesic
CPT/HCPCS: 36415; 80048; 81025; 84702; 85025; 85652; 86140; 99283; A9270

== ENCOUNTER → 2021-07-19 02:08 | Outpatient (CLI) | payer OTHER, SELFPAY ==
[2021-07-20 15:30] LABS: SARS-CoV-2 RNA PCR Negative
== END ==
PROVIDERS: PCP Physician Assistant; Visit Provider Physician Assistant
DX: Z20.822 Contact with and (suspected) exposure to COVID-19 (principal)
CPT/HCPCS: C9803; U0003; U0005

== ENCOUNTER 2021-10-12 08:20 | Outpatient (CLI) | payer OTHER, SELFPAY ==
--- NOTE | ~2021-10-12 | NM_ITS ---
EXAM: NM gastric emptying study DATE: 10/12/2021 14:22 INDICATION: Dysphagia. Gastroesophageal reflux disease. TECHNIQUE: A gastric emptying study was performed using the methodology of Phuc VALDEZ, et al. J Nucl Med 2007; 48:568-572. The patient was given a meal consisting of 2 scrambled eggs labeled with 0.917 mCi Tc-99m sulfur colloid, 2 slices of toast, two packages of jam, and approximately 120 mL of water . Simultaneous anterior and posterior 1-min images of the abdomen were obtained with the patient supi ne at multiple time points over a total period of 4 hours. The geometric mean of anterior and posteri or views was determined, and the percentage retention was calculated for each time point. COMPARISON: None. FINDINGS: Gastric retention of the radiotracer-labeled meal was 56%, 42%, and 6% at the 1-hour, 2-ho ur, and 4-hour time points, respectively. With this technique, apparent rapid gastric emptying is sug gested by <30% gastric retention at 1 hour. Delayed gastric emptying is defined by gastric retention of >90% at 1 hour, >60% retention at 2 hours, or >10% retention at 4 hours. IMPRESSION: 1. Normal gastric emptying. Reviewed, dictated and finalized at location B. [employer] IMPRESSION: 1. Normal gastric emptying.
== END 2021-10-12 08:21 | disposition home or self-care (01) ==
LOC: ANHIMG 08:26
PROVIDERS: PCP Physician Assistant; Visit Provider Internal Medicine Gastroenterology
DX: K44.9 Diaphragmatic hernia without obstruction or gangrene (principal); R11.2 Nausea with vomiting, unspecified; R68.81 Early satiety; K21.9 Gastro-esophageal reflux disease without esophagitis; R13.10 Dysphagia, unspecified
CPT/HCPCS: 78264; A9541

== ENCOUNTER 2021-12-09 09:57 | Outpatient (CLI) | payer OTHER, MEDICAID, SELFPAY ==
[2021-12-09 10:25] LABS: Hematocrit 40.8 % (37.0-47.0); Hemoglobin 13.6 g/dL (12.0-15.0)
[2021-12-09 10:37] LABS: Partial Thromboplastin Time 25.1 SECONDS (22.3-36.8); Prothrombin Time 13.2 Seconds (11.1-14.7)
[2021-12-09 10:44] LABS: Anion Gap 8 mmol/L (8-16); Blood Urea Nitrogen 14 mg/dL (7-17); Calcium 9.1 mg/dL (8.4-10.2); Carbon Dioxide 30 mmol/L (22-30); Chloride 102 mmol/L (98-107); Estimated Glomerular Filt Rate > 60; Glucose 88 mg/dL (65-110); Potassium 4.2 mmol/L (3.4-5.0); Sodium 140 mmol/L (137-145)
--- NOTE | 2021-12-13 09:32 | WPDANESPN ---
Anes - Prog Note Post-Op Date/Time: 12/13/21 09:32 Cardiovascular status: normal Respiratory status: normal Airway patency: baseline Mental status: baseline Post-Op hydration status: normal Pain Score (VAS): 0 Laboratory Tests 12/09/21 10:15 12/09/21 10:15 Post-procedural complaints: none Patient Feedback: Patient satisfied with anesthetic care.
== END 2021-12-09 09:58 | disposition home or self-care (01) ==
LOC: ANHSURGERY 10:03
PROVIDERS: Anesthesiology; PCP Physician Assistant; Visit Provider Obstetrics & Gynecology Gynecology
DX: Z01.812 Encounter for preprocedural laboratory examination (principal); N92.0 Excessive and frequent menstruation with regular cycle; K76.0 Fatty (change of) liver, not elsewhere classified
CPT/HCPCS: 36415; 80048; 85014; 85018; 85610; 85730; 86850; 86900; 86901

== ENCOUNTER 2021-12-12 00:23 | Day surgery (SDC) | payer OTHER, MEDICAID, SELFPAY ==
[2021-12-09 08:23] VITALS: BMI 34.9
--- NOTE | 2021-12-09 08:41 | PC.NURSE ---
Report to the Outpatient Waiting Room, entrance under the green pavilion located off [facility], at time 6:00 on date 12/12/21. OR Time: 7:30. - You will be asked a series of questions to screen for COVID 19 for your protection. - A mask is required within the hospital. - No visitors are allowed at this time. Preoperative COVID Testing Requirements: No COVID Test needed if: (proof is required; if not received patient will have Rapid Test prior to entry) - Patient has received COVID Vaccine at least 14 days prior to procedure date or - Patient has positive COVID test result within last 90 days of surgery date. COVID Test needed if above criteria is not met Patients may have clear liquids (water, carbonated beverages, clear teas, apple juice) until 3 hours prior to surgery (4:30) with a maximum of 20 ounces. - No food from midnight until time of surgery Take the following medications with a SIP of water the morning of surgery: INHALERS, EYE DROPS, GABAPENTIN, HYDROXYCHLOROQUINE, LEVOTHYROXINE Medications to discontinue per physician: VITAMINS/SUPPLEMENTS Date to take last dose: 12/08/21 Please no make-up, nail emirati, hairspray, perfume, deodorant, or body powder the day of surgery. No jewelry (including any body piercings) or valuables the day of surgery, leave them at home. Please take a shower or bath the night before, or the morning of, surgery with an antibacterial soap. Wear comfortable, loose fitting clothing. - Jewelry must be removed prior to entering the operating room. Rings and piercings that are not removed may be cut off. - The hospital will not accept responsibility for valuables. - Please leave all valuables, including medications, at home the day of surgery. If you are going home after surgery, a licensed water tanker driver must drive you home. - NO public transportation without another adult. - We recommend that an adult stay with you for 24 hours following discharge. - We also recommend that you do not drive, make important decision, drink alcoholic beverages, or take any drugs that were not prescribed by your health care provider for at least 24 hours after your discharge time. Follow any additional instructions given to you from your surgeon. Telephone instructions given to SIERRA MONTESINOS and asked if any additional questions and then verbalized understanding. Patient advised to call surgeon office or pre surgery nurse liaison [phone] if any additional questions.
[2021-12-12] VITALS (14 sets, daily range): BP systolic 103–125; BP diastolic 63–87; PULSE 63–82; RESP 12–23; TEMP 36.1–36.7; O2SAT 94–100
[2021-12-12] MEDS: LACTATED RINGERS 1,000 ML 30 ML IV CONT ×2 (06:43→10:11)
[2021-12-12] MEDS: ACETAMINOPHEN 500 MG TABLET 1000 MG PO (06:43)
--- NOTE | 2021-12-12 07:00 | WPDANESEPPF ---
Anes - Initial Pre Proc Eval Procedure: Operation Date: 12/12/21 07:30 Proposed Procedures p Diagnostic Laparoscopy, Total Vaginal Hysterectomy, with Possible Bilateral Salpingectomy, - Anjelica Moran MD s Posterior Repair - Anjelica Moran MD Date/Time: 12/12/21 07:00 Surgeon: Anjelica Moran MD Pre Op Diagnosis: menorrhagia, rectocele Patient Data Age: 31 Gender: F Height: 1.83 m Weight: 116.8 kg Allergies Allergy/AdvReac Type Severity Reaction Status Date / Time lactase [From Dairy Aid] Allergy Severe Anaphylaxis Verified 12/12/21 06:30 NSAIDS (Non-Steroidal Allergy Severe Difficulty Verified 07/12/21 12:23 Anti-Inflamma Breathing sulfamethoxazole AdvReac Severe Wheezing Verified 07/12/21 12:23 trimethoprim AdvReac Severe Wheezing Verified 07/12/21 12:23 topiramate AdvReac Mild HALLUCINATI Verified 07/12/21 12:23 ONS Home Medications Medication Instructions Recorded Confirmed Type albuterol sulfate 1 inh INHALATION Q4-6H PRN 05/10/20 12/12/21 History ascorbic acid (vitamin C) [Vitamin 500 mg PO DAILY 05/10/20 12/12/21 History C] azelastine 2 spray INTRANASAL BID 05/10/20 12/12/21 History elderberry fruit and flower 1 cap PO DAILY 05/10/20 12/12/21 History fluticasone propion-salmeterol 1 inh INHALATION BID PRN 05/10/20 12/12/21 History fluticasone propionate [Flonase 1 spray INTRANASAL DAILY 05/10/20 12/12/21 History Allergy Relief] montelukast 10 mg PO HS 05/10/20 12/12/21 History pantoprazole [Protonix] 40 mg PO QAM 05/10/20 12/12/21 History brimonidine-dorzolamide (PF) 1 drp OPHTHALMIC (EYE) TID 08/24/20 12/12/21 History gabapentin 600 mg PO TID 08/24/20 12/12/21 History levothyroxine 137 mcg PO DAILY 08/24/20 12/12/21 History tiotropium bromide [Spiriva with 1 cap INHALATION DAILY 08/24/20 12/12/21 History HandiHaler] cetirizine 10 mg PO DAILY 12/09/21 12/12/21 History hydroxychloroquine 200 mg PO BID 12/09/21 12/12/21 History Patient hx anesthesia problems: other (motion sickness rare) Family hx anesthesia problems: none Results Review: All pre-operative results and documents have been reviewed as part of the pre-operative evaluation. [facility] Past Medical History Medical History Anxiety Asthma Depression Fatty liver GERD (gastroesophageal reflux disease) Hypothyroid IBS (irritable bowel syndrome) Migraine (normal spontaneous vaginal delivery) x 3 PTSD (post-traumatic stress disorder) Rheumatoid arthritis Sleep apnea Status post hysteroscopy Social History Social History Smoking packs per day: 1.5 Smoking cigarettes per day: 30.0 Years smoked: 13 Smoking pack-years: 19.50 Smoking status: Former smoker Tobacco type: cigarettes Second hand tobacco smoke exposure: No Smoking end date: 11/19/15 Alcohol intake: current Drinks per week: 0 Alcohol use details: 1/YEAR Substance use: never Substance use type: does not use Last use: 2017 Living arrangements: with family Gender identity (if verbalized by the patient): Female Spiritual care concerns: No Anes - Eval Final PreProcedure Day of Procedure 12/12/21 07:00 Patient weight: obese Heart: regular rate and rhythm Lungs: decreased breath sounds Airway: Mallampati scale class II Neurological: alert and oriented Last oral intake: >/= 8 hours ASA classification: III Emergent: no Anesthetic plan: proceed Anesthesia type and monitoring: general ETT and standard monitoring Results Review: All pre-operative results and documents have been reviewed as part of the pre-operative evaluation. Informed Consent: The patient's anesthetic plan and its attendant risks and benefits were discussed with the patient/family/POA. Questions were solicited and answers provided to the satisfaction of the patient/family/POA.
--- NOTE | 2021-12-12 07:01 | WPDHPUPDATE1 ---
History and Physical Update Update Date/Time: 12/12/21 07:01 History and Physical has been reviewed, including an updated exam of the patient. There are NO changes in the patient's condition. Risks, benefits, and alternatives have been discussed and questions answered. Patient agrees to proceed with procedure.
--- NOTE | 2021-12-12 07:02 | W.PM.PROC2 ---
Procedure Note - Detailed Date of Procedure 12/12/21 Pre-op Diagnosis menorrhagia, rectocele Post-op Diagnosis same Surgeon Anjelica Moran MD
--- NOTE | 2021-12-12 07:02 | PM.IMHP ---
H&P: HPI History of Present Illness Date/Time: 12/12/21 07:02 Chief Complaint: menorrhagia; rectocele Narrative: 31 yo A1 here with complaints of continued heavy cycles despite endometrial ablation. Patient also with dysmenorrhea and pelvic pain. Patient has also tried medications prior to ablation. Recent colonoscopy with polyps noted. Patient has to splint in the vagina in order to pass bowel movements. Reviewed with patient options limited at this point. Patient has decided to proceed with hysterectomy posterior repair. Due to pelvic pain, plan diagnostic laparoscopy with TVH, Posterior repair. Patient aware may need laparoscope to assist or may need open MONTY. If possible, also plan bilateral salpingectomy. Risks of infection, bleeding, injury to internal organs (aldo. bowel, bladder,ovaries, and ureters), DVT, and general anesthesia. Patient agrees to proceed. [facility] Past Medical History Medical History (Updated 12/12/21 @ 07:12 by Anjelica Moran MD) Anxiety Asthma Depression Fatty liver GERD (gastroesophageal reflux disease) Hypothyroid IBS (irritable bowel syndrome) Migraine (normal spontaneous vaginal delivery) x 3 PTSD (post-traumatic stress disorder) Rheumatoid arthritis Sleep apnea Status post hysteroscopy Surgical History Surgical History (Updated 12/12/21 @ 07:10 by Anjelica Moran MD) S/P endometrial ablation S/P tubal ligation Social History Social History Smoking packs per day: 1.5 Smoking cigarettes per day: 30.0 Years smoked: 13 Smoking pack-years: 19.50 Smoking status: Former smoker Tobacco type: cigarettes Second hand tobacco smoke exposure: No Smoking end date: 11/19/15 Alcohol intake: current Drinks per week: 0 Alcohol use details: 1/YEAR Substance use: never Substance use type: does not use Last use: 2017 Living arrangements: with family Gender identity (if verbalized by the patient): Female Spiritual care concerns: No Meds Home Medications and Allergies Home Medications Medication Instructions Recorded Confirmed Type albuterol sulfate 1 inh INHALATION Q4-6H PRN 05/10/20 12/12/21 History ascorbic acid (vitamin C) [Vitamin 500 mg PO DAILY 05/10/20 12/12/21 History C] azelastine 2 spray INTRANASAL BID 05/10/20 12/12/21 History elderberry fruit and flower 1 cap PO DAILY 05/10/20 12/12/21 History fluticasone propion-salmeterol 1 inh INHALATION BID PRN 05/10/20 12/12/21 History fluticasone propionate [Flonase 1 spray INTRANASAL DAILY 05/10/20 12/12/21 History Allergy Relief] montelukast 10 mg PO HS 05/10/20 12/12/21 History pantoprazole [Protonix] 40 mg PO QAM 05/10/20 12/12/21 History brimonidine-dorzolamide (PF) 1 drp OPHTHALMIC (EYE) TID 08/24/20 12/12/21 History gabapentin 600 mg PO TID 08/24/20 12/12/21 History levothyroxine 137 mcg PO DAILY 08/24/20 12/12/21 History tiotropium bromide [Spiriva with 1 cap INHALATION DAILY 08/24/20 12/12/21 History HandiHaler] cetirizine 10 mg PO DAILY 12/09/21 12/12/21 History hydroxychloroquine 200 mg PO BID 12/09/21 12/12/21 History Allergies Allergy/AdvReac Type Severity Reaction Status Date / Time lactase [From Dairy Aid] Allergy Severe Anaphylaxis Verified 12/12/21 06:30 NSAIDS (Non-Steroidal Allergy Severe Difficulty Verified 07/12/21 12:23 Anti-Inflamma Breathing sulfamethoxazole AdvReac Severe Wheezing Verified 07/12/21 12:23 trimethoprim AdvReac Severe Wheezing Verified 07/12/21 12:23 topiramate AdvReac Mild HALLUCINATI Verified 07/12/21 12:23 ONS Exam Const: General: healthy appearing and alert Orientation/consciousness: patient oriented x3 Resp: Effort & Inspection: normal respiratory effort Auscultation: clear to auscultation bilaterally Cardio: Rate: regular rate Rhythm: regular rhythm GI: GI Palp: Yes Soft to palpation, No Tenderness to palpation present (GI) and No Palpable mass present
[2021-12-12] MEDS: SCOPOLAMINE 1.5 MG PATCH TRANSDERM (07:15)
[2021-12-12] MEDS: ceFAZolin 2 GM/D5W 50 ML 2 GM/50 ML BAG IVPB (07:31)
[2021-12-12] MEDS: LIDO 1%/EPINEPHRINE 1:100,000 50 ML VIAL INFILTRATE (09:44)
--- NOTE | 2021-12-12 10:04 | W.PM.PROC2 ---
Procedure Note - Detailed Date of Procedure 12/12/21 Pre-op Diagnosis menorrhagia, rectocele Post-op Diagnosis same Procedure Performed diagnostic laparoscopy; total vaginal hysterectomy; bilateral salpingectomy; posterior vaginal repair Surgeon Anjelica Moran MD Anesthesia general Findings normal-appearing tubes ovaries with evidence of prior tubal ligation. Uterus is enlarged and appears to have adenomyosis. large posterior rectocele Description of Procedure the patient is taken to the operating room and placed under anesthesia in the dorsal lithotomy position. She was prepped and draped in usual sterile fashion. Lau catheter is in place. [place] speculum was placed in the vagina and the cervix is grasped on the anterior lip with a tenaculum. Uterus sounds to 8cm and the CLYDE manipulator is placed. Other instruments are removed and attention was turned to the abdomen. a 5mm incision is made at base of the umbilicus with scalpel. The abdomen is tented in the basement placed and noted to be too short. The long Veress was opened and placed. Water drop test is normal however opening patient pressure was 14mmHg attempts to obtaining pneumoperitoneum were not successful. The Veress needle was removed and placed through a 5mm skin incision 2cm above the symphysis pubis water drop test is normal. Opening patient pressure was 5mmHg. Pneumoperitoneum was able to be obtained. A 5mm trocar was placed with the Optiview through the umbilicus. . Intra-abdominal placement was confirmed with the laparoscope. The Veress needle was removed and a 5mm trocar placed in the suprapubic incision. The blunt probe was used to investigate the pelvis and no abnormalities or adhesions are noted. The laparoscope is removed and a sterile drape placed over the abdomen. Attention was returned to the vagina where a short weighted speculum was placed posteriorly and the Wade retractor placed anteriorly. The cervix is grasped on the anterior lip with a tenaculum and injected with 1% lidocaine with epinephrine in a circumferential manner. A scalpel was used to incise the vaginal mucosa around the cervix. The vaginal mucosa was dissected off anteriorly using sharp and blunt dissection. The peritoneum was entered and the Wade retractor replaced. The posterior vaginal mucosa was dissected off the cervix and peritoneum entered. The long curved weighted speculum was placed through the peritoneum posteriorly. The lateral retractors required for visualization throughout the vaginal case. The uterosacral and cardinal ligaments are serially clamped transected and suture ligated with 0 Vicryl. These were tagged for future use. The uterine vessels are clamped transected and suture ligated with 0 Vicryl. The posterior fundus is grasped with towel clamps and with great difficulty the we it was delivered through the cul-de-sac. The towel clamps kept pulling through the tissue consistent with adenomyosis. The utero-ovarian ligaments are clamped transected and suture ligated with 0 Vicryl the round ligaments are clamped transected and suture ligated with 0 Vicryl. The specimen was amputated and given to the silk screen etcher. The right tube is grasped with a [place], crossclamped, excised, and suture ligated with 0 Vicryl. The left tube was grasped with a [place], crossclamped, excised, and suture ligated with 0 Vicryl. The short weighted speculum was placed posteriorly and the peritoneum grasped anteriorly and posteriorly in the midline. The 0 Ethibond is used to close the peritoneum in a pursestring fashion incorporating the previously tagged cardinal and uterosacral ligaments. The vaginal cuff was then closed in a running locked fashion. The posterior retractors removed and the 5 and 7:00 a.m. areas of the hymenal ring grasped with Allis clamps. The intervening tissue was incised with a scalpel. The midline is injected with 1% lidocaine with epinephrine. The triangula
[2021-12-12] MEDS: fentaNYL CITRATE INJ (*CRX) 100 MCG/2 ML VIAL 25 MCG IV PUSH ×8 (10:42→11:26)
[2021-12-12] MEDS: GABAPENTIN 300 MG CAPSULE 600 MG PO ×2 (12:22→17:23)
[2021-12-12] MEDS: DEXTROSE 5%/LACTATED RINGERS 1,000 ML 125 ML IV CONT ×2 (12:23→19:55)
[2021-12-12] MEDS: FENTANYL 600MCG/NS30MLPCA(*CRX 600 MCG/30 ML PCA.VIAL IV CONT (13:04)
[2021-12-12] MEDS: BRIMONIDINE TARTRATE 0.15% 5 ML OPHTH SOLN 1 DROP EACH EYE (17:17)
[2021-12-12] MEDS: AZELASTINE HCL NASAL 0.1% 137 MCG/SPR 30 ML BTL 2 SPRAY NASAL (17:21)
[2021-12-12] MEDS: DOCUSATE SODIUM 100 MG CAPSULE (17:23)
[2021-12-12] MEDS: SIMETHICONE 80 MG TAB.CHEW (17:23)
[2021-12-12] MEDS: HYDROXYCHLOROQUINE SULFATE 200 MG TABLET PO (17:23)
[2021-12-12] MEDS: FLUTICASONE/SALMETEROL 230-21 MCG INHALER 1 PUFF 2 PUFF INHALATION (21:15)
[2021-12-12] MEDS: MONTELUKAST SODIUM 10 MG TABLET PO (21:24)
[2021-12-13 00:25] VITALS: BP 108/62; PULSE 75; RESP 16; TEMP 36.8; O2SAT 100
[2021-12-13 02:30] VITALS: RESP 16; O2SAT 100
[2021-12-13] MEDS: HYDROcodone/acetaminophen (*CRX) 10-325 MG TABLET 1 TAB PO ×2 (03:54→07:43)
[2021-12-13 03:55] VITALS: BP 94/49; PULSE 67; RESP 16; TEMP 37.3; O2SAT 100
--- NOTE | 2021-12-13 07:22 | PM.GYNPNOP ---
SERVICE STATION CASHIER - A/P Postoperative Procedures: Procedures Operation Date: 12/12/21 07:30 Actual Procedure Side Surgeon p Diagnostic Laparoscopy, Total Vaginal Hysterectomy, Bilateral Salpingectomy Bilateral Anjelica Moran MD s Posterior Repair Not Applicable Anjelica Moran MD Postoperative day: 1 Postoperative status: doing well Postoperative plan: routine post-op care and discharge Time Spent With Patient Time: Total time spent is greater than 50% in coordination of care (as documented) at patient's floor/unit and/or counseling patient: Time with patient: less than 15 minutes SERVICE STATION CASHIER- PN:Subj Post-Op Subjective Date/time seen: 12/13/21 07:22 Subjective: patient reports feeling better and patient has no complaints Exam Narrative: abdomen- bandages c/d/i nt, nd SERVICE STATION CASHIER - PN: Obj Data Vital Signs Vital Signs: Vital Signs - 24 hr 12/12/21 10:11 12/12/21 10:15 12/12/21 10:30 Temperature 97.6 F Pulse Rate 75 74 65 Respiratory Rate 17 18 20 Blood Pressure 115/76 106/68 103/63 Pulse Oximetry 100 100 100 12/12/21 10:45 12/12/21 11:00 12/12/21 11:15 Temperature Pulse Rate 67 63 64 Respiratory Rate 14 23 H 14 Blood Pressure 112/69 118/75 120/87 Pulse Oximetry 100 94 100 12/12/21 11:27 12/12/21 11:40 12/12/21 11:50 Temperature 97.3 F L Pulse Rate 66 75 75 Respiratory Rate 12 12 18 Blood Pressure 124/80 125/80 Pulse Oximetry 98 98 100 12/12/21 13:04 12/12/21 17:51 12/12/21 19:45 Temperature 98.1 F 98.1 F Pulse Rate 73 68 Respiratory Rate 12 16 16 Blood Pressure 107/66 119/69 Pulse Oximetry 98 100 100 12/12/21 21:45 12/13/21 00:25 12/13/21 02:30 Temperature 98.3 F Pulse Rate 75 Respiratory Rate 16 16 16 Blood Pressure 108/62 Pulse Oximetry 100 100 100 12/13/21 03:55 Temperature 99.2 F Pulse Rate 67 Respiratory Rate 16 Blood Pressure 94/49 L Pulse Oximetry 100 Intake/Output Intake/Output: Intake & Output 12/10/21 12/11/21 12/12/2112/13/22 23:59 23:59 23:59 23:59 Intake Total 2350 320 Output Total 2650 2150 Balance -300 -1830 Meds/Results Medications: Active Medications Generic Name Dose Route Start Last Admin Trade Name Freq PRN Reason Stop Dose Admin Hydrocodone Bitart/Acetaminophen 1 tab 12/12/21 11:31 Hydrocodone/Acetaminophen (*Crx) 5-325 Mg Tablet PO Q3H PRN Pain Rated 5 or Less Hydrocodone Bitart/Acetaminophen 1 tab 12/12/21 11:31 12/13/21 03:54 Hydrocodone/Acetaminophen (*Crx) 10-325 Mg Tablet PO 1 tab Q3H PRN Administration Pain Rated 6 or Greater Albuterol 1 puff 12/12/21 11:31 Albuterol Sulfate (*Sp) Aerosol 1 Puff INHALATION Q4-6H PRN Shortness Of Breath Azelastine HCl 2 spray 12/12/21 17:00 12/12/21 17:21 Azelastine Hcl Nasal 0.1% 137 Mcg/Spr 30 Ml Btl NASAL 2 spray BID GREGG Administration Brimonidine Tartrate 1 drop 12/12/21 13:00 12/12/21 17:32 Brimonidine Tartrate 0.15% 5 Ml Ophth Soln EACH EYE Not Given TID GREGG Dorzolamide HCl 1 drop 12/12/21 13:00 12/12/21 17:32 Dorzolamide Hcl 2% Ophth Drops EACH EYE Not Given TID GREGG Fluticasone Propionate 1 spray 12/13/21 09:00 Fluticasone Propionate 0.05% Na Spr 16 Gm Btl (*Bkc) NASAL DAILY GREGG Gabapentin 600 mg 12/12/21 13:00 12/12/21 17:23 Gabapentin 300 Mg Capsule PO 600 mg TID GREGG Administration Hydroxychloroquine Sulfate 200 mg 12/12/21 17:00 12/12/21 17:23 Hydroxychloroquine Sulfate 200 Mg Tablet PO 200 mg BID GREGG Administration Levothyroxine Sodium 112 mcg 12/13/21 06:30 Levothyroxine Sodium 112 Mcg Tablet PO DAILY@0630 [facility] Levothyroxine Sodium 25 mcg 12/13/21 06:30 Levothyroxine Sodium 25 Mcg Tablet PO DAILY@0630 [facility] Montelukast Sodium 10 mg 12/12/21 21:00 12/12/21 21:24 Montelukast Sodium 10 Mg Tablet PO 10 mg HS GREGG Administration Naloxone HCl 0.1 mg 12/12/21 11:31 Naloxone Hcl 0.4 Mg/Ml Vial IV PUSH Q2M PRN
--- NOTE | 2021-12-13 07:23 | P.DS_ITS ---
DS: Admitting Diagnosis Discharge Date 12/13/21 Admitting Diagnosis menorrhagia; rectocele DS: Discharge Diagnosis Discharge Diagnosis (1) Rectocele: Code(s): N81.6 - Rectocele Status: Acute (2) Menorrhagia: Code(s): N92.0 - Excessive and frequent menstruation with regular cycle Status: Acute (3) History of total vaginal hysterectomy (TVH): Code(s): Z90.710 - Acquired absence of both cervix and uterus Status: Acute DS: Summary Hospital Course Hospital Course: Prior to DC, patient tolerating diet, ambulating, and voiding Status at Discharge Functional status at discharge: independent ambulation Overall status at discharge: patient is progressing back to baseline Time Spent with Patient Time attestation: Total time spent providing and/or coordinating discharge services: DS: Data Data Completed and Pending Pending studies at discharge: Pending at discharge 12/12/21 09:13 Surgical [PTH] Routine Discharge Plan Discharge Patient Disposition: Home, Self-Care Discharge Instructions: Remove the Scopolamine patch that was placed behind your ear in 72 hours or less. Wash your hands after touching. Stand Alone Forms: General Discharge Instructions Follow-up/Referrals: Anjelica Moran MD [Physician] - Discharge Medications: New hydrocodone-acetaminophen 5-325 mg Tablet 1 tablet PO Q3H PRN (Reason: Pain Rated 5 Or Less) Qty: 30 RF: 0 Continued gabapentin 300 mg Capsule 600 mg PO TID RF: 0 Spiriva with HandiHaler 18 mcg Capsule, W/Inhalation Device 1 cap INHALATION DAILY RF: 0 brimonidine-dorzolamide (PF) 0.15-2 % Drops 1 drp OPHTHALMIC (EYE) TID RF: 0 levothyroxine 175 mcg Tablet 137 mcg PO DAILY RF: 0 cetirizine 10 mg Tablet 10 mg PO DAILY RF: 0 hydroxychloroquine 200 mg Tablet 200 mg PO BID RF: 0 pantoprazole [Protonix] 40 mg Tablet,Delayed Release (Dr/Ec) 40 mg PO QAM RF: 0 ascorbic acid (vitamin C) [Vitamin C] 500 mg Capsule, Extended Release 500 mg PO DAILY RF: 0 montelukast 10 mg Tablet 10 mg PO HS RF: 0 albuterol sulfate 90 mcg/actuation HFA aerosol inhaler 1 inh INHALATION Q4-6H PRN (Reason: Shortness Of Breath) RF: 0 fluticasone propionate [Flonase Allergy Relief] 50 mcg/actuation [place],Suspension 1 spray INTRANASAL DAILY RF: 0 azelastine 0.15 % (205.5 mcg) spray,non-aerosol 2 spray INTRANASAL BID RF: 0 fluticasone propion-salmeterol 232-14 mcg/actuation aerosol powdr breath activated 1 inh INHALATION BID PRN (Reason: Shortness Of Breath) RF: 0 elderberry fruit and flower 460-115 mg Capsule 1 cap PO DAILY RF: 0
[2021-12-13] MEDS: LEVOTHYROXINE SODIUM 112 MCG TABLET PO (07:33)
[2021-12-13] MEDS: LEVOTHYROXINE SODIUM 25 MCG TABLET PO (07:33)
[2021-12-13] MEDS: UMECLIDINIUM BROMIDE 62.5 MCG ELLIPTA 1 PUFF INHALATION (07:45)
[2021-12-13] MEDS: BRIMONIDINE TARTRATE 0.15% 5 ML OPHTH SOLN 1 DROP EACH EYE (07:47)
[2021-12-13 08:25] VITALS: BP 111/66; PULSE 68; RESP 16; TEMP 36.9; O2SAT 100
--- NOTE | 2021-12-13 09:42 | WPDANESPN ---
Anes - Prog Note Post-Op Date/Time: 12/13/21 09:42 Cardiovascular status: normal Respiratory status: normal Airway patency: baseline Mental status: baseline Post-Op hydration status: normal Vital Signs: Last Vital Signs Temp 36.9 C 12/13/21 08:25 Pulse 68 12/13/21 08:25 Resp 16 12/13/21 08:25 BP 111/66 12/13/21 08:25 Pulse Ox 100 12/13/21 08:25 Pain Score (VAS): 0 I/O: Intake & Output 12/12/21 12/13/21 12/13/21 23:59 07:59 15:59 Intake Total 1500 320 Output Total 2650 2150 Balance -1150 -1830 Post-procedural complaints: none Patient Feedback: Patient satisfied with anesthetic care.
[2021-12-13] MEDS: GABAPENTIN 300 MG CAPSULE 600 MG PO (10:01)
[2021-12-13] MEDS: AZELASTINE HCL NASAL 0.1% 137 MCG/SPR 30 ML BTL 2 SPRAY NASAL (10:01)
[2021-12-13] MEDS: FLUTICASONE PROPIONATE 0.05% NA SPR 16 GM BTL (*BKC) 1 SPRAY NASAL (10:01)
[2021-12-13] MEDS: HYDROXYCHLOROQUINE SULFATE 200 MG TABLET PO (10:02)
[2021-12-13] MEDS: PANTOPRAZOLE 40 MG TABLET PO (10:03)
[2021-12-13] MEDS: HYDROcodone/acetaminophen (*CRX) 5-325 MG TABLET 1 TAB PO (12:31)
== END 2021-12-13 14:50 | disposition home or self-care (01) ==
LOC: ANHSURGERY 07:17 → ANHOB2 12:02
PROVIDERS: PCP Physician Assistant; Visit Provider Obstetrics & Gynecology Gynecology
PROC: 0UT9FZZ Resection of Uterus, Via Natural or Artificial Opening With Percutaneous Endoscopic Assistance (ICD-10-PCS; CPT 57250; principal; 2021-12-12 07:30)
PROC: (CPT 57260; 2021-12-12 07:30)
DX: N92.0 Excessive and frequent menstruation with regular cycle (principal); N81.6 Rectocele; N84.0 Polyp of corpus uteri; N94.6 Dysmenorrhea, unspecified; R10.2 Pelvic and perineal pain; J45.909 Unspecified asthma, uncomplicated; F41.8 Other specified anxiety disorders; K21.9 Gastro-esophageal reflux disease without esophagitis; K76.0 Fatty (change of) liver, not elsewhere classified; M06.9 Rheumatoid arthritis, unspecified; F43.10 Post-traumatic stress disorder, unspecified; K58.9 Irritable bowel syndrome, unspecified; Z79.51 Long term (current) use of inhaled steroids; Z87.891 Personal history of nicotine dependence; E66.9 Obesity, unspecified; Z68.34 Body mass index [BMI] 34.0-34.9, adult
CPT/HCPCS: 57250; 58552; 36415; 80048; 85014; 85018; 85610; 85730; 86850; 86900; 86901; 88307; 94640; 99199; A9270; J0131; J0330; J0690; J1100; J1170; J1200; J2250; J2405; J2704; J3010; J7120; J7121

== ENCOUNTER 2022-09-02 18:20 | Emergency (ER) | payer OTHER, MEDICAID, SELFPAY ==
--- NOTE | ~2022-09-02 | XR_ITS ---
EXAMINATION: XR chest 2V Exam Date/Time: 09/02/2022 18:45 CDT HISTORY: COUGH X 5 DAYS. Comparison: 07/02/2021. RESULT: Lines, tubes, and devices: None. Lungs and pleura: Clear. Cardiomediastinal silhouette: Stable. Other: No acute osseous or upper abdominal finding. IMPRESSION: No acute cardiopulmonary process. Reviewed, dictated and finalized at location K.
[2022-09-02 18:26] VITALS: BP 119/77; PULSE 78; RESP 20; TEMP 36.3; O2SAT 100
--- NOTE | 2022-09-02 18:52 | ED.GENADULT ---
HPI - General Adult General Chief complaint: Upper Respiratory Infection Stated complaint: Sore Throat/Chest Congestion Source: patient Mode of arrival: ambulatory Limitations: no limitations History of Present Illness HPI narrative: Patient presents for evaluation of cough for the last 5 days. She states cough is productive of green sputum. She has mild SOB. Three days ago she states she lost (her) voice . Denies sore throat. No fever, chills, nausea, vomiting, diarrhea. She does have some pleuritic chest pain. She is a former smoker, with quit date in 2016. She states she has COPD, emphysema and chronic bronchitis. She has been using her neb treatments 1-2 times per day and has also been using her albuterol inhaler. Related Data Home Medications Medication Instructions Recorded Confirmed albuterol sulfate 90 mcg/actuation 1 inh inhalation Q4-6H PRN 05/10/20 12/12/21 aerosol inhaler Shortness Of Breath ascorbic acid (vitamin C) 500 mg 500 mg PO DAILY 05/10/20 12/12/21 capsule,extended release (Vitamin C) azelastine 205.5 mcg (0.15 %) 2 spray intranasal BID 05/10/20 12/12/21 nasal spray elderberry fruit 460 mg-elderberry 1 cap PO DAILY 05/10/20 12/12/21 flower 115 mg capsule fluticasone 232 mcg-salmeterol 14 1 inh inhalation BID PRN Shortness 05/10/20 12/12/21 mcg/actuation breath activated Of Breath powdr fluticasone propionate 50 1 spray intranasal DAILY 05/10/20 12/12/21 mcg/actuation nasal spray,suspension (Flonase Allergy Relief) montelukast 10 mg tablet 10 mg PO HS 05/10/20 12/12/21 pantoprazole 40 mg tablet,delayed 40 mg PO QAM 05/10/20 12/12/21 release (Protonix) brimonidine 0.15 %-dorzolamide 2 % 1 drp ophthalmic (eye) TID 08/24/20 12/12/21 (PF) eye drops gabapentin 300 mg capsule 600 mg PO TID 08/24/20 12/12/21 levothyroxine 175 mcg tablet 137 mcg PO DAILY 08/24/20 12/12/21 tiotropium bromide 18 mcg capsule 1 cap inhalation DAILY 08/24/20 12/12/21 with inhalation device (Spiriva with HandiHaler) cetirizine 10 mg tablet 10 mg PO DAILY 12/09/21 12/12/21 hydroxychloroquine 200 mg tablet 200 mg PO BID 12/09/21 12/12/21 Allergies Allergy/AdvReac Type Severity Reaction Status Date / Time lactase [From Dairy Aid] Allergy Severe Anaphylaxis Verified 12/12/21 06:30 NSAIDS (Non-Steroidal Allergy Severe Difficulty Verified 07/12/21 12:23 Anti-Inflamma Breathing sulfamethoxazole AdvReac Severe Wheezing Verified 07/12/21 12:23 trimethoprim AdvReac Severe Wheezing Verified 07/12/21 12:23 topiramate AdvReac Mild HALLUCINATI Verified 07/12/21 12:23 ONS Review of Systems Review of Systems: CONSTITUTIONAL: Denies fever, chills, or sweats. EYES: Denies visual changes, redness, or discharge. ENT: Reports losing (her) voice . Denies rhinorrhea, congestion, sore throat, or otalgia. CARDIOVASCULAR: Denies chest pain, palpitations, or edema. RESPIRATORY: Reports cough, mild SOB and wheezing during coughing episodes. GASTROINTESTINAL: Denies abdominal pain, nausea, vomiting, or diarrhea. GENITOURINARY: Denies dysuria or hematuria. SKIN: Denies rash or itching. MUSCULOSKELETAL: Denies back pain, joint pain, or myalgia. NEUROLOGIC: Denies headache, numbness, dizziness, or weakness. PSYCHIATRIC: Denies anxiety or depression. [facility] Past Medical History Medical History Anxiety Asthma Depression Fatty liver GERD (gastroesophageal reflux disease) Hypothyroid IBS (irritable bowel syndrome) Migraine (normal spontaneous vaginal delivery) x 3 PTSD (post-traumatic stress disorder) Rheumatoid arthritis Sleep apnea Status post hysteroscopy Surgical History Surgical History S/P endometrial ablation S/P tubal ligation Family History Family History (Updated 09/02/22 @ 19:24 by BRYAN Jenkins, DAVID) Mother Family history non-contributory Social
== END 2022-09-02 19:31 | disposition home or self-care (01) ==
PROVIDERS: Emergency Provider Nurse Practitioner; PCP Physician Assistant
DX: J06.9 Acute upper respiratory infection, unspecified (principal); J04.0 Acute laryngitis; Z20.822 Contact with and (suspected) exposure to COVID-19; Z87.891 Personal history of nicotine dependence; J45.909 Unspecified asthma, uncomplicated; K76.0 Fatty (change of) liver, not elsewhere classified; K21.9 Gastro-esophageal reflux disease without esophagitis; E03.9 Hypothyroidism, unspecified; J44.9 Chronic obstructive pulmonary disease, unspecified
CPT/HCPCS: 71046; 87081; 87426; 87880; 99213; C9803; G0463

== ENCOUNTER 2022-09-10 14:29 | Emergency (ER) | payer OTHER, MEDICAID, SELFPAY ==
--- NOTE | ~2022-09-10 | XR_ITS ---
EXAMINATION: XR chest 2V DATE: 09/10/2022 15:19 INDICATION: Cough TECHNIQUE: PA and lateral views of the chest are obtained. COMPARISON: 09/02/2022 FINDINGS: There are minimal airspace opacities of the right upper lobe. No pleural effusion or pneumo thorax. The cardiomediastinal silhouette is normal. There is mild thoracic spondylosis. IMPRESSION: 1. Minimal airspace opacities of the right upper lobe, likely pneumonia. Reviewed, dictated and finalized at location F.
--- NOTE | 2022-09-10 14:34 | ED.URI ---
HPI - URI/Sore Throat General Chief Complaint: Dizziness Stated Complaint: dizziness can't breathe deep Time Seen by Provider: 09/10/22 14:35 Source: patient Mode of arrival: ambulatory Limitations: no limitations History of Present Illness HPI Narrative: Ms. Ratliff is a 32-year-old female patient presenting to the clinic today with complaints of dizziness, cough, and difficulty breathing. She reports that she is unable to take a deep breath without having a cough. She states that she has not been able to use her inhalers because she is unable to take a deep breath so she has been using her nebulizer and it does not seem to be helping. She denies any fever or chills feels weak and lightheaded when she stands. MD elicited complaint: sore throat and nasal congestion Related Data Home Medications Medication Instructions Recorded Confirmed albuterol sulfate 90 mcg/actuation 1 inh inhalation Q4-6H PRN 05/10/20 09/10/22 aerosol inhaler Shortness Of Breath ascorbic acid (vitamin C) 500 mg 500 mg PO DAILY 05/10/20 09/10/22 capsule,extended release (Vitamin C) azelastine 205.5 mcg (0.15 %) 2 spray intranasal BID 05/10/20 09/10/22 nasal spray elderberry fruit 460 mg-elderberry 1 cap PO DAILY 05/10/20 09/10/22 flower 115 mg capsule fluticasone 232 mcg-salmeterol 14 1 inh inhalation BID PRN Shortness 05/10/20 09/10/22 mcg/actuation breath activated Of Breath powdr fluticasone propionate 50 1 spray intranasal DAILY 05/10/20 09/10/22 mcg/actuation nasal spray,suspension (Flonase Allergy Relief) montelukast 10 mg tablet 10 mg PO HS 05/10/20 09/10/22 pantoprazole 40 mg tablet,delayed 40 mg PO QAM 05/10/20 09/10/22 release (Protonix) brimonidine 0.15 %-dorzolamide 2 % 1 drp ophthalmic (eye) TID 08/24/20 09/10/22 (PF) eye drops gabapentin 300 mg capsule 600 mg PO TID 08/24/20 09/10/22 levothyroxine 175 mcg tablet 137 mcg PO DAILY 10/06/20 10/23/22 tiotropium bromide 18 mcg capsule 1 cap inhalation DAILY 08/24/20 09/10/22 with inhalation device (Spiriva with HandiHaler) cetirizine 10 mg tablet 10 mg PO DAILY 12/09/21 09/10/22 hydroxychloroquine 200 mg tablet 200 mg PO BID 12/09/21 09/10/22 Allergies Allergy/AdvReac Type Severity Reaction Status Date / Time lactase [From Dairy Aid] Allergy Severe Anaphylaxis Verified 09/10/22 14:42 NSAIDS (Non-Steroidal Allergy Severe Difficulty Verified 09/10/22 14:42 Anti-Inflamma Breathing sulfamethoxazole AdvReac Severe Wheezing Verified 09/10/22 14:42 trimethoprim AdvReac Severe Wheezing Verified 09/10/22 14:42 topiramate AdvReac Mild HALLUCINATI Verified 09/10/22 14:42 ONS Review of Systems Review of Systems: Pertinent positives per HPI. Patient denies any fever, chills, rash, headache, visual changes, cough, chest pain, palpitations, nausea, vomiting, diarrhea, constipation, abdominal pain, or any urinary issues. [facility] Past Medical History Medical History Anxiety Asthma Depression Fatty liver GERD (gastroesophageal reflux disease) Hypothyroid IBS (irritable bowel syndrome) Migraine (normal spontaneous vaginal delivery) x 3 PTSD (post-traumatic stress disorder) Rheumatoid arthritis Sleep apnea Status post hysteroscopy Surgical History Surgical History S/P endometrial ablation S/P tubal ligation Family History Family History Mother Family history non-contributory Social History Social History Smoking packs per day: 1.5 Smoking cigarettes per day: 30.0 Years smoked: 13 Smoking pack-years: 19.50 Smoking status: Former smoker Tobacco type: cigarettes Second hand tobacco smoke exposure: No Smoking end date: 11/19/15 Alcohol intake: current Drinks per week: 0 Alcohol use de
[2022-09-10 14:38] VITALS: BP 114/76; PULSE 87; RESP 20; TEMP 36.5; O2SAT 100
[2022-09-10 14:48] VITALS: BP 114/76; PULSE 87; RESP 20; TEMP 36.5; O2SAT 100
== END 2022-09-10 15:40 | disposition home or self-care (01) ==
PROVIDERS: Emergency Provider Nurse Practitioner Family; PCP Physician Assistant
DX: J18.9 Pneumonia, unspecified organism (principal); Z20.822 Contact with and (suspected) exposure to COVID-19; Z87.891 Personal history of nicotine dependence; K21.9 Gastro-esophageal reflux disease without esophagitis; E03.9 Hypothyroidism, unspecified; M06.9 Rheumatoid arthritis, unspecified; G47.30 Sleep apnea, unspecified; J45.909 Unspecified asthma, uncomplicated; K76.0 Fatty (change of) liver, not elsewhere classified
CPT/HCPCS: 71046; 87426; 87804; 99213; C9803; G0463

== ENCOUNTER 2023-01-14 13:31 | Emergency (ER) | payer OTHER, SELFPAY ==
--- NOTE | ~2023-01-14 | XR_ITS ---
XR chest 2V DATE: 01/14/2023 14:24 INDICATION: Covid. Chest pain for 2 days. Cough, bronchitis. History of asthma, COPD. TECHNIQUE: PA and lateral views COMPARISON: 09/10/2022 2 view chest FINDINGS: Normal heart size. No hilar or mediastinal enlargement. The lungs are clear of infiltrate o r consolidation. No pleural effusion or pulmonary vascular congestion or pneumothorax. Included skele rik structures are unremarkable. IMPRESSION: Negative Reviewed, dictated and finalized at location A. ER INDUCTION IMPRESSION: Negative
--- NOTE | 2023-01-14 13:33 | ECG_ITS ---
Measurements Intervals [place] Rate: 78 P: 48 MT: 169 QRS: 25 QRSD: 98 T: 64 QT: 384 QTc: 437 Interpretive Statements SINUS RHYTHM WITH SINUS ARRHYTHMIA NONSPECIFIC T-WAVE ABNORMALITY BORDERLINE ECG COMPARED TO ECG 07/02/2021 16:13:20 NO SIGNIFICANT CHANGE Electronically Signed On 01-15-2023 7:08:40 ADULT EDUCATOR by Óscar Warren M.D.
[2023-01-14 13:39] VITALS: BP 137/82; PULSE 80; RESP 16; TEMP 36.3; O2SAT 100
[2023-01-14 13:49] LABS: Basophils Percent Auto 0.5 % (0.2-1.2); Eosinophils Percent Auto 0.5 % (0-4.4); Hematocrit 40.4 % (37.0-47.0); Hemoglobin 13.4 g/dL (12.0-15.0); Immature Granulocyte Absolute 0.01 K/mm3 (0.00-0.031); Immature Granulocyte Percent A 0.2 % (0-0.5); Lymphocytes Absolute Auto 1.38 K/mm3 (0.9-3.2); Lymphocytes Percent Auto 23.5 % (18.3-44.2); Mean Corpuscular HGB Conc 33.2 g/dl (32-36); Mean Corpuscular Hemoglobin 30.7 pg (26-34); Mean Corpuscular Volume 92.4 fl (80-100); Mean Platelet Volume 10.5 fl (7.4-10.4); Monocytes Absolute Auto 0.4 K/mm3 (0.1-0.6); Monocytes Percent Auto 7.2 % (2.6-8.5); Neutrophils Percent Auto 68.1 % (45.5-73.1); Platelet Count Result 171 k/mm3 (150-375); Red Blood Count 4.37 M/mm3 (4.2-5.4); Red Cell Distribution Width 12.3 % (11.5-14.5); White Blood Count 5.9 K/mm3 (4.5-10.0)
[2023-01-14 14:00] LABS: Alanine Aminotransferase 24 U/L (6-35); Albumin Level 4.3 g/dL (3.5-5.1); Alkaline Phosphatase 49 U/L (38-126); Anion Gap 6 mmol/L (8-16); Aspartate Amino Transferase 28 U/L (14-36); Bilirubin,Total 0.5 mg/dL (0.2-1.3); Blood Urea Nitrogen 11 mg/dL (7-17); Calcium 8.9 mg/dL (8.4-10.2); Carbon Dioxide 29 mmol/L (22-30); Chloride 102 mmol/L (98-107); Estimated CRCL calculation 95 ml/min; Estimated Glomerular Filt Rate 58; Glucose 100 mg/dL (65-110); Lipase 69 U/L (23-300); Potassium 3.5 mmol/L (3.4-5.0); Sodium 137 mmol/L (137-145)
[2023-01-14 14:06] LABS: INR 1.1; Prothrombin Time 13.7 Seconds (11.1-14.7)
[2023-01-14 14:07] LABS: Partial Thromboplastin Time 25.8 SECONDS (22.3-36.8)
[2023-01-14 14:12] LABS: Troponin I < 0.012 ng/mL (0.000-0.034)
[2023-01-14 15:40] VITALS: BP 136/81; PULSE 63; RESP 18; O2SAT 100
[2023-01-14 17:18] LABS: Troponin I < 0.012 ng/mL (0.000-0.034)
[2023-01-14 18:06] VITALS: BP 128/72; PULSE 69; RESP 18; TEMP 36.1; O2SAT 100
--- NOTE | 2023-01-14 19:32 | ED.GENADULT ---
HPI - General Adult General Chief complaint: Chest Pain Stated complaint: Covid, low o2/chest pain Time Seen by Provider: 01/14/23 18:58 Source: patient, RN notes reviewed and old records reviewed Mode of arrival: ambulatory Limitations: no limitations History of Present Illness HPI narrative: This is a 32 year old female who presents for evaluation of chest pain. PAtient reports her and child were exposed to covid. she started having symptoms on Sunday. She reports bodyaches, congestion and cough. She has nonproductive cough. She also reports bilateral chest with breathing and cough. She has voice hoarseness but she denies sob, nausea, vomiting, sore throat or diarrhea. She does report dizziness and she thinks her oxygen drops with standing up.She tested positive on COVID on Sunday. Related Data Home Medications Medication Instructions Recorded Confirmed albuterol sulfate 90 mcg/actuation 1 inh inhalation Q4-6H PRN 05/10/20 09/10/22 aerosol inhaler Shortness Of Breath ascorbic acid (vitamin C) 500 mg 500 mg PO DAILY 05/10/20 09/10/22 capsule,extended release (Vitamin C) azelastine 205.5 mcg (0.15 %) 2 spray intranasal BID 05/10/20 09/10/22 nasal spray elderberry fruit 460 mg-elderberry 1 cap PO DAILY 05/10/20 09/10/22 flower 115 mg capsule fluticasone 232 mcg-salmeterol 14 1 inh inhalation BID PRN Shortness 05/10/20 09/10/22 mcg/actuation breath activated Of Breath powdr fluticasone propionate 50 1 spray intranasal DAILY 05/10/20 09/10/22 mcg/actuation nasal spray,suspension (Flonase Allergy Relief) montelukast 10 mg tablet 10 mg PO HS 05/10/20 09/10/22 pantoprazole 40 mg tablet,delayed 40 mg PO QAM 05/10/20 09/10/22 release (Protonix) brimonidine 0.15 %-dorzolamide 2 % 1 drp ophthalmic (eye) TID 08/24/20 09/10/22 (PF) eye drops gabapentin 300 mg capsule 600 mg PO TID 08/24/20 09/10/22 levothyroxine 175 mcg tablet 137 mcg PO DAILY 08/24/20 09/10/22 tiotropium bromide 18 mcg capsule 1 cap inhalation DAILY 08/24/20 09/10/22 with inhalation device (Spiriva with HandiHaler) cetirizine 10 mg tablet 10 mg PO DAILY 12/09/21 09/10/22 hydroxychloroquine 200 mg tablet 200 mg PO BID 12/09/21 09/10/22 Allergies Allergy/AdvReac Type Severity Reaction Status Date / Time lactase [From Dairy Aid] Allergy Severe Anaphylaxis Verified 01/14/23 19:56 NSAIDS (Non-Steroidal Allergy Severe Difficulty Verified 01/14/23 19:56 Anti-Inflamma Breathing sulfamethoxazole AdvReac Severe Wheezing Verified 01/14/23 19:56 trimethoprim AdvReac Severe Wheezing Verified 01/14/23 19:56 topiramate AdvReac Mild HALLUCINATI Verified 01/14/23 19:56 ONS Review of Systems Constitutional: Constitutional: Denies weakness ENT: Reports nasal congestion and Denies sore throat Cardiovascular: Cardiovascular: Reports chest pain, Denies syncope, Denies rapid heart rate, Denies irregular heart rhythm, Denies leg edema and Denies dyspnea Respiratory: Respiratory: Reports chest congestion, Reports cough, Denies hemoptysis, Denies excessive phlegm production and Denies dyspnea Gastrointestinal: Gastrointestinal: Denies abdominal pain, Denies hematochezia, Denies diarrhea and Denies vomiting Genitourinary: Genitourinary: Denies hematuria and Denies dysuria Musculoskeletal: Musculoskeletal: Denies joint swelling, Denies loss of height and Denies muscle weakness Neurologic: Denies syncope, Denies focal weakness and Denies weakness PMFSH Past Medical History Medical History Anxiety Asthma Depression Fatty liver GERD (gastroesophageal reflux disease) Hypothyroid IBS (irritable bowel syndrome) Migraine (normal spontaneous vaginal delivery) x 3 PTSD (post-traumatic stress disorder) Rheumatoid arthritis Sleep apnea Status post hysteroscopy Surgical History Surgical History S/P endometria
[2023-01-14 19:52] VITALS: BP 115/74; BP 117/87; BP 118/88; PULSE 61; PULSE 62; PULSE 65
[2023-01-14 19:55] VITALS: O2SAT 100
[2023-01-14 20:08] LABS: D Dimer < 0.27 ug/mL (<0.48)
[2023-01-14 20:17] LABS: Troponin I < 0.012 ng/mL (0.000-0.034)
[2023-01-14 20:51] VITALS: BP 116/74; PULSE 61; RESP 17; O2SAT 100
== END 2023-01-14 20:54 | disposition home or self-care (01) ==
PROVIDERS: Emergency Medicine; Emergency Provider General Practice; PCP Physician Assistant
DX: U07.1 COVID-19 (principal); R07.89 Other chest pain; J45.909 Unspecified asthma, uncomplicated; E03.9 Hypothyroidism, unspecified; K58.9 Irritable bowel syndrome, unspecified; M06.9 Rheumatoid arthritis, unspecified; G47.30 Sleep apnea, unspecified; Z87.891 Personal history of nicotine dependence; R94.31 Abnormal electrocardiogram [ECG] [EKG]
CPT/HCPCS: 36415; 71046; 80053; 83690; 84484; 85025; 85380; 85610; 85730; 93005; 99284

== ENCOUNTER 2023-03-26 09:09 | Emergency (ER) | payer OTHER, SELFPAY ==
[2023-03-26] VITALS (14 sets, daily range): BP systolic 105–116; BP diastolic 73–85; PULSE 81–97; RESP 14–20; TEMP 36.6; O2SAT 96–100
--- NOTE | ~2023-03-26 | CT_ITS ---
EXAMINATION: CTA chest PE protocol DATE: 03/26/2023 10:51 CDT INDICATION: Pleuritic chest pain TECHNIQUE: Computed tomographic angiography (CTA) of the chest was performed with 100 mL Omnipaque-35 0 intravenous contrast. The dose-length product was 841.88 mGy-cm. Maximum intensity projection 3D-re constructions of the aorta and other arteries were constructed by the technologist on a separate work station. COMPARISON: CT dated 04/30/2019. FINDINGS: Study is technically adequate without evidence for pulmonary embolism. Heart size normal. N o thoracic lymphadenopathy. No significant pleural or pericardial effusion. No endobronchial lesions. No pneumothorax. Mild thoracic spondylosis. No focal lytic or blastic lesions. Small hiatal hernia. Surgical changes of the stomach are present. IMPRESSION: 1. No acute cardiopulmonary disease or pulmonary embolism. Reviewed, dictated and finalized at location B.
--- NOTE | ~2023-03-26 | XR_ITS ---
EXAMINATION: XR chest 1V portable 03/26/2023 09:55 INDICATION: Chest pain, cough and shortness of breath PROCEDURE: AP portable chest COMPARISON: Comparison to multiple prior studies sequentially, with oldest reviewed study dated 07/02. FINDINGS: The lungs are clear. The cardiomediastinal silhouette is within normal limits. There are no pleural effusions. There is no pneumothorax suspected. IMPRESSION: 1: NO ACUTE CARDIOPULMONARY DISEASE. Reviewed, dictated and finalized at location B.
--- NOTE | 2023-03-26 09:21 | ECG_ITS ---
Measurements Intervals [place] Rate: 89 P: 34 CT: 162 QRS: 49 QRSD: 93 T: 47 QT: 338 QTc: 412 Interpretive Statements SINUS RHYTHM BASELINE ARTIFACT- I, II, III, AVR, AVL, AVF NORMAL ECG COMPARED TO ECG 01/14/2023 13:36:36 NO SIGNIFICANT CHANGES Electronically Signed On 03-26-2023 13:22:32 CDT by Juan David Jain D.O.
[2023-03-26 09:42] LABS: Basophils Percent Auto 0.5 % (0.2-1.2); Eosinophils Percent Auto 0.3 % (0-4.4); Hemoglobin 13.6 g/dL (12.0-15.0); Immature Granulocyte Absolute 0.02 K/mm3 (0.00-0.031); Immature Granulocyte Percent A 0.3 % (0-0.5); Lymphocytes Absolute Auto 0.86 K/mm3 (0.9-3.2); Lymphocytes Percent Auto 13.7 % (18.3-44.2); Mean Corpuscular HGB Conc 33.2 g/dl (32-36); Mean Corpuscular Hemoglobin 30.1 pg (26-34); Mean Corpuscular Volume 90.7 fl (80-100); Mean Platelet Volume 11.3 fl (7.4-10.4); Monocytes Absolute Auto 0.6 K/mm3 (0.1-0.6); Monocytes Percent Auto 10.1 % (2.6-8.5); Neutrophils Absolute Auto 4.7 K/mm3 (1.3-6.7); Neutrophils Percent Auto 75.1 % (45.5-73.1); Platelet Count Result 157 k/mm3 (150-375); Red Blood Count 4.52 M/mm3 (4.2-5.4); Red Cell Distribution Width 12.9 % (11.5-14.5); White Blood Count 6.3 K/mm3 (4.5-10.0)
[2023-03-26 09:53] LABS: Alanine Aminotransferase 31 U/L (6-35); Albumin Level 4.5 g/dL (3.5-5.1); Alkaline Phosphatase 49 U/L (38-126); Anion Gap 7 mmol/L (8-16); Aspartate Amino Transferase 28 U/L (14-36); Bilirubin,Total 0.5 mg/dL (0.2-1.3); Blood Urea Nitrogen 9 mg/dL (7-17); Calcium 8.9 mg/dL (8.4-10.2); Carbon Dioxide 26 mmol/L (22-30); Chloride 105 mmol/L (98-107); Estimated CRCL calculation 92 ml/min; Estimated Glomerular Filt Rate 58; Glucose 100 mg/dL (65-110); Lipase 145 U/L (23-300); Potassium 3.6 mmol/L (3.4-5.0); Sodium 138 mmol/L (137-145)
[2023-03-26 09:55] LABS: Partial Thromboplastin Time 25.6 SECONDS (22.3-36.8)
[2023-03-26] MEDS: MORPHINE SULFATE (*CRX) 4 MG/ML INJ IV PUSH (10:00)
[2023-03-26] MEDS: ONDANSETRON INJ 4 MG/2 ML VIAL IV PUSH (10:00)
[2023-03-26 10:02] LABS: Troponin I < 0.012 ng/mL (0.000-0.034)
[2023-03-26 10:23] LABS: NT Pro B Type Natriuretic Pept 26 pg/mL (19.9-100)
--- NOTE | 2023-03-26 10:34 | ED.CHESTPAIN ---
HPI - Chest Pain General Chief Complaint: Chest Pain Stated Complaint: tremors, chest pain Time Seen by Provider: 03/26/23 09:24 History of Present Illness HPI narrative: This is a 32-year-old female with past history of DVT, hiatal hernia status post Michael fundoplication, who presents to the emergency department complaining of chest pain for the past 2 days. Pain is described as sharp, rated 8/10 radiating to the back. It is exacerbated by physical exertion and deep breathing. Is accompanied by nonbloody cough. She also notes several episodes of lightheadedness and near syncope. Related Data Home Medications Medication Instructions Recorded Confirmed albuterol sulfate 90 mcg/actuation 1 inh inhalation Q4-6H PRN 05/10/20 09/10/22 aerosol inhaler Shortness Of Breath ascorbic acid (vitamin C) 500 mg 500 mg PO DAILY 05/10/20 09/10/22 capsule,extended release (Vitamin C) azelastine 205.5 mcg (0.15 %) 2 spray intranasal BID 05/10/20 09/10/22 nasal spray elderberry fruit 460 mg-elderberry 1 cap PO DAILY 05/10/20 09/10/22 flower 115 mg capsule fluticasone 232 mcg-salmeterol 14 1 inh inhalation BID PRN Shortness 05/10/20 09/10/22 mcg/actuation breath activated Of Breath powdr fluticasone propionate 50 1 spray intranasal DAILY 05/10/20 09/10/22 mcg/actuation nasal spray,suspension (Flonase Allergy Relief) montelukast 10 mg tablet 10 mg PO HS 05/10/20 09/10/22 pantoprazole 40 mg tablet,delayed 40 mg PO QAM 05/10/20 09/10/22 release (Protonix) brimonidine 0.15 %-dorzolamide 2 % 1 drp ophthalmic (eye) TID 08/24/20 09/10/22 (PF) eye drops gabapentin 300 mg capsule 600 mg PO TID 08/24/20 09/10/22 levothyroxine 175 mcg tablet 137 mcg PO DAILY 08/24/20 09/10/22 tiotropium bromide 18 mcg capsule 1 cap inhalation DAILY 08/24/20 09/10/22 with inhalation device (Spiriva with HandiHaler) cetirizine 10 mg tablet 10 mg PO DAILY 12/09/21 09/10/22 hydroxychloroquine 200 mg tablet 200 mg PO BID 12/09/21 09/10/22 Allergies Allergy/AdvReac Type Severity Reaction Status Date / Time lactase [From Dairy Aid] Allergy Severe Anaphylaxis Verified 03/26/23 09:27 NSAIDS (Non-Steroidal Allergy Severe Difficulty Verified 03/26/23 09:27 Anti-Inflamma Breathing sulfamethoxazole AdvReac Severe Wheezing Verified 03/26/23 09:27 trimethoprim AdvReac Severe Wheezing Verified 03/26/23 09:27 topiramate AdvReac Mild HALLUCINATI Verified 03/26/23 09:27 ONS Review of Systems Review of Systems: CONSTITUTIONAL: Denies fever, chills, or sweats. CARDIOVASCULAR: Sharp chest pain, palpitations denies edema. RESPIRATORY: Nonbloody nonproductive cough, dyspnea on exertion GASTROINTESTINAL: Denies abdominal pain, nausea, vomiting, or diarrhea. GENITOURINARY: Denies dysuria or hematuria. SKIN: Denies rash or itching. MUSCULOSKELETAL: Denies back pain, joint pain, or myalgia. NEUROLOGIC: Denies headache, numbness, dizziness, or weakness. PSYCHIATRIC: Denies anxiety or depression. [facility] Past Medical History Medical History Anxiety Asthma Depression Fatty liver GERD (gastroesophageal reflux disease) Hypothyroid IBS (irritable bowel syndrome) Migraine (normal spontaneous vaginal delivery) x 3 PTSD (post-traumatic stress disorder) Rheumatoid arthritis Sleep apnea Status post hysteroscopy Surgical History Surgical History S/P endometrial ablation S/P tubal ligation Family History Family History Mother Family history non-contributory Social History Social History Smoking packs per day: 1.5 Smoking cigarettes per day: 30.0 Years smoked: 13 Smoking pack-years: 19.50 Smoking status: Former smoker Tobacco type: cigarettes Second hand tobacco smoke exposure: No Smoking end da
[2023-03-26] MEDS: ACETAMINOPHEN 500 MG TABLET 1000 MG PO (12:01)
== END 2023-03-26 12:27 | disposition home or self-care (01) ==
PROVIDERS: Emergency Provider Preventive Medicine Aerospace Medicine; PCP Physician Assistant
DX: R07.89 Other chest pain (principal); F41.9 Anxiety disorder, unspecified; J45.909 Unspecified asthma, uncomplicated; F32.A Depression, unspecified; K21.9 Gastro-esophageal reflux disease without esophagitis; E03.9 Hypothyroidism, unspecified; G47.30 Sleep apnea, unspecified
CPT/HCPCS: 36415; 71045; 71275; 80053; 83690; 83880; 84484; 85025; 85610; 85730; 93005; 96374; 96375; 99284; A9270; J2270; J2405; Q9967

== ENCOUNTER 2023-11-14 18:54 | Emergency (ER) | payer OTHER, SELFPAY ==
[2023-11-14 18:58] VITALS: BP 137/79; PULSE 85; RESP 18; TEMP 36.1; O2SAT 99
--- NOTE | 2023-11-14 19:14 | ED.GENADULT ---
HPI - General Adult General Chief complaint: Upper Respiratory Infection Stated complaint: chest tight/cough Source: patient, RN notes reviewed and old records reviewed Mode of arrival: ambulatory Limitations: no limitations History of Present Illness HPI narrative: 33-year-old female presents to [facility] with complaint of cough, congestion, myalgias, shortness of breath this started 5 days ago. Patient states her son was T seen at [facility] and diagnosed with influenza a, rhino virus, and and enterovirus. patient denies chest pain, weakness, dizziness, vomiting. Patient states she thinks she has pneumonia. Patient states has history of COPD, asthma, emphysema. MD complaint: Cough Onset (ago): day(s) (5) Related Data Home Medications Medication Instructions Recorded Confirmed albuterol sulfate 90 mcg/actuation 1 inh inhalation Q4-6H PRN 05/10/20 11/14/23 aerosol inhaler Shortness Of Breath ascorbic acid (vitamin C) 500 mg 500 mg PO DAILY 05/10/20 11/14/23 capsule,extended release (Vitamin C) azelastine 205.5 mcg (0.15 %) 2 spray intranasal BID 05/10/20 11/14/23 nasal spray elderberry fruit 460 mg-elderberry 1 cap PO DAILY 05/10/20 11/14/23 flower 115 mg capsule fluticasone 232 mcg-salmeterol 14 1 inh inhalation BID PRN Shortness 05/10/20 11/14/23 mcg/actuation breath activated Of Breath powdr fluticasone propionate 50 1 spray intranasal DAILY 05/10/20 11/14/23 mcg/actuation nasal spray,suspension (Flonase Allergy Relief) montelukast 10 mg tablet 10 mg PO HS 05/10/20 11/14/23 pantoprazole 40 mg tablet,delayed 40 mg PO QAM 05/10/20 11/14/23 release (Protonix) brimonidine 0.15 %-dorzolamide 2 % 1 drp ophthalmic (eye) TID 08/24/20 11/14/23 (PF) eye drops gabapentin 300 mg capsule 600 mg PO TID 08/24/20 11/14/23 levothyroxine 175 mcg tablet 137 mcg PO DAILY 08/24/20 11/14/23 tiotropium bromide 18 mcg capsule 1 cap inhalation DAILY 08/24/20 11/14/23 with inhalation device (Spiriva with HandiHaler) cetirizine 10 mg tablet 10 mg PO DAILY 12/09/21 11/14/23 hydroxychloroquine 200 mg tablet 200 mg PO BID 12/09/21 11/14/23 Allergies Allergy/AdvReac Type Severity Reaction Status Date / Time lactase [From Dairy Aid] Allergy Severe Anaphylaxis Verified 11/14/23 19:07 NSAIDS (Non-Steroidal Allergy Severe Difficulty Verified 11/14/23 19:07 Anti-Inflamma Breathing sulfamethoxazole AdvReac Severe Wheezing Verified 11/14/23 19:07 trimethoprim AdvReac Severe Wheezing Verified 11/14/23 19:07 topiramate AdvReac Mild HALLUCINATI Verified 11/14/23 19:07 ONS Review of Systems Constitutional: Constitutional: Reports no additional constitutional complaints, Reports body ache(s), Denies chills, Denies fatigue and Denies headache(s) Eyes: Eyes: Reports no additional eye complaints and Denies blurry vision ENT: Reports system reviewed and no additional complaints, except as documented, Denies vertigo, Denies dizziness, Denies ear discharge, Denies otalgia, Denies facial pain, Denies headache(s), Reports nasal congestion, Reports nasal discharge, Denies sinus pain, Reports sinus pressure and Denies sore throat Cardiovascular: Cardiovascular: Reports no additional cardiovascular complaints, Denies chest pain, Denies chest pain at rest, Denies rapid heart rate and Denies dyspnea Respiratory: Respiratory: Reports no additional respiratory complaints, Reports chest congestion, Reports cough, Denies pain on inspiration, Denies pain with cough and Reports dyspnea Gastrointestinal: Gastrointestinal: Denies abdominal pain, Denies diarrhea, Denies nausea and Denies vomiting Integumentary/Breasts: Skin/Breast: Denies rash Neurologic: Reports system reviewed and no additional complaints, except as documented, Denies vertigo, Denies dizziness and Denies headache(s) Endocrine: Endocrine: Denies fatigue PMFSH Past Medical History Medical History (Reviewed 11/14/23 @ 19:16 by Poppy Dyer, APR
== END 2023-11-14 19:25 | disposition home or self-care (01) ==
PROVIDERS: Emergency Provider Registered Nurse; PCP Physician Assistant
DX: J20.9 Acute bronchitis, unspecified (principal); Z20.822 Contact with and (suspected) exposure to COVID-19; Z87.891 Personal history of nicotine dependence; J44.9 Chronic obstructive pulmonary disease, unspecified; K76.0 Fatty (change of) liver, not elsewhere classified; K21.9 Gastro-esophageal reflux disease without esophagitis; E03.9 Hypothyroidism, unspecified; M06.9 Rheumatoid arthritis, unspecified
CPT/HCPCS: 87426; 87804; 99213; C9803; G0463

== ENCOUNTER 2023-12-31 09:22 | Emergency (ER) | payer OTHER, SELFPAY ==
[2023-12-31 09:28] VITALS: BP 136/76; PULSE 79; RESP 20; TEMP 36.4; O2SAT 100
--- NOTE | 2023-12-31 10:14 | ED.EYEPROB ---
HPI - Eye Problem General Chief complaint: Eye Problems Stated complaint: Eye Problem Time Seen by Provider: 12/31/23 10:10 Source: patient, RN notes reviewed and old records reviewed Mode of arrival: ambulatory Limitations: no limitations History of Present Illness HPI Narrative: 33-year-old female who presents to [facility] with complaints of 2 week duration of whitish eye drainage intermittently, denies any greenish or yellowish drainage or crusting of eyes. Patient reports she was diagniosed with sinus infection also 2 weeks ago and is presently on cefdinir at this time. Patient reports no pain or any visual changes of eyes. MD chief complaint: other (whitish eye drainage at times) Onset (ago): week(s) (2) Duration: intermittent Eye Symptoms: other (whitish discharge) Severity: mild Treatments Prior to Arrival: other (on antibiotic) Related Data Home Medications Medication Instructions Recorded Confirmed albuterol sulfate 90 mcg/actuation 1 inh inhalation Q4-6H PRN 05/10/20 11/14/23 aerosol inhaler Shortness Of Breath ascorbic acid (vitamin C) 500 mg 500 mg PO DAILY 05/10/20 11/14/23 capsule,extended release (Vitamin C) azelastine 205.5 mcg (0.15 %) 2 spray intranasal BID 05/10/20 11/14/23 nasal spray elderberry fruit 460 mg-elderberry 1 cap PO DAILY 05/10/20 11/14/23 flower 115 mg capsule fluticasone 232 mcg-salmeterol 14 1 inh inhalation BID PRN Shortness 05/10/20 11/14/23 mcg/actuation breath activated Of Breath powdr fluticasone propionate 50 1 spray intranasal DAILY 05/10/20 11/14/23 mcg/actuation nasal spray,suspension (Flonase Allergy Relief) montelukast 10 mg tablet 10 mg PO HS 05/10/20 11/14/23 pantoprazole 40 mg tablet,delayed 40 mg PO QAM 05/10/20 11/14/23 release (Protonix) brimonidine 0.15 %-dorzolamide 2 % 1 drp ophthalmic (eye) TID 08/24/20 11/14/23 (PF) eye drops gabapentin 300 mg capsule 600 mg PO TID 08/24/20 11/14/23 levothyroxine 175 mcg tablet 137 mcg PO DAILY 08/24/20 11/14/23 tiotropium bromide 18 mcg capsule 1 cap inhalation DAILY 08/24/20 11/14/23 with inhalation device (Spiriva with HandiHaler) cetirizine 10 mg tablet 10 mg PO DAILY 12/09/21 11/14/23 hydroxychloroquine 200 mg tablet 200 mg PO BID 12/09/21 11/14/23 cefdinir 300 mg capsule mg 12/31/23 Allergies Allergy/AdvReac Type Severity Reaction Status Date / Time lactase [From Dairy Aid] Allergy Severe Anaphylaxis Verified 11/14/23 19:07 NSAIDS (Non-Steroidal Allergy Severe Difficulty Verified 11/14/23 19:07 Anti-Inflamma Breathing sulfamethoxazole AdvReac Severe Wheezing Verified 11/14/23 19:07 trimethoprim AdvReac Severe Wheezing Verified 11/14/23 19:07 topiramate AdvReac Mild HALLUCINATI Verified 11/14/23 19:07 ONS Review of Systems Review of Systems: CONSTITUTIONAL: Denies fever, chills, or sweats. EYES: Denies visual changes. Reports,, irritation, white discharge. ENT: Reports rhinorrhea, congestion,no sore throat, or otalgia. CARDIOVASCULAR: Denies chest pain, palpitations, or edema. RESPIRATORY: Denies cough or dyspnea. SKIN: Denies rash or itching. NEUROLOGIC: Denies headache All systems reviewed & are unremarkable except as noted in HPI and below PMFSH Past Medical History Medical History Anxiety Asthma Depression Fatty liver GERD (gastroesophageal reflux disease) Hypothyroid IBS (irritable bowel syndrome) Migraine (normal spontaneous vaginal delivery) x 3 PTSD (post-traumatic stress disorder) Rheumatoid arthritis Sleep apnea Status post hysteroscopy Surgical History Surgical History S/P endometrial ablation S/P tubal ligation Family History Family History Mother Family history non-contributory Social History Social History Smo
== END 2023-12-31 10:52 | disposition home or self-care (01) ==
PROVIDERS: Emergency Provider Registered Nurse; PCP Physician Assistant
DX: H10.9 Unspecified conjunctivitis (principal); J45.909 Unspecified asthma, uncomplicated; F41.8 Other specified anxiety disorders; E03.9 Hypothyroidism, unspecified; M06.9 Rheumatoid arthritis, unspecified; Z87.891 Personal history of nicotine dependence
CPT/HCPCS: 99213; G0463

== ENCOUNTER 2024-07-25 08:58 | Emergency (ER) | payer OTHER, SELFPAY ==
--- NOTE | ~2024-07-25 | XR_ITS ---
Left ankle Technique: AP, oblique, and lateral views were obtained. Clinical History: Pain Findings: No acute fracture or dislocation is seen. Osseous alignment is anatomic. Ankle mortise and other visualized joint spaces are preserved. Soft tissues are otherwise unremarkable. Impression: Unremarkable left ankle. Reviewed, dictated and finalized at location . Impression: Unremarkable left ankle.
--- NOTE | 2024-07-25 09:29 | ED.EXTPRO ---
HPI - Extremity Problem General Chief complaint: Extremity Problem,Nontraumatic Stated complaint: lump on ankle Time Seen by Provider: 07/25/24 09:04 History of Present Illness HPI Narrative: This is a 33-year-old otherwise healthy female presented to the emergency department with a chief complaint of a left ankle mass. Patient states she was undergoing a HIDA scan yesterday on outpatient basis as she has a gallstone that is currently being worked up. She states that she had her legs crossed during the procedure and when she uncross them she knows that there was a large cystic, masslike structure on the left ankle near the lateral malleolus. Denies any injury or pain from it but states that since she has noticed it has been having some radiating pain proximally in the lateral aspect of her lower leg. Describes as a ?nerve pain. Patient has no history of trauma denies any rolling of the ankle or falls. No systemic features such as chest pain, shortness a breath, fever, chills, nausea, vomiting, abdominal pain, flank pain. Patient thinks it could be a ganglion cyst although is not present the day prior and she is sure it is new. Related Data Home Medications Medication Instructions Recorded Confirmed albuterol sulfate 90 mcg/actuation 1 inh inhalation Q4-6H PRN 05/10/20 11/14/23 aerosol inhaler Shortness Of Breath ascorbic acid (vitamin C) 500 mg 500 mg PO DAILY 05/10/20 11/14/23 capsule,extended release (Vitamin C) azelastine 205.5 mcg (0.15 %) 2 spray intranasal BID 05/10/20 11/14/23 nasal spray elderberry fruit 460 mg-elderberry 1 cap PO DAILY 05/10/20 11/14/23 flower 115 mg capsule fluticasone 232 mcg-salmeterol 14 1 inh inhalation BID PRN Shortness 05/10/20 11/14/23 mcg/actuation breath activated Of Breath powdr fluticasone propionate 50 1 spray intranasal DAILY 05/10/20 11/14/23 mcg/actuation nasal spray,suspension (Flonase Allergy Relief) montelukast 10 mg tablet 10 mg PO HS 05/10/20 11/14/23 pantoprazole 40 mg tablet,delayed 40 mg PO QAM 05/10/20 11/14/23 release (Protonix) brimonidine 0.15 %-dorzolamide 2 % 1 drp ophthalmic (eye) TID 08/24/20 11/14/23 (PF) eye drops gabapentin 300 mg capsule 600 mg PO TID 08/24/20 11/14/23 levothyroxine 175 mcg tablet 137 mcg PO DAILY 08/24/20 11/14/23 tiotropium bromide 18 mcg capsule 1 cap inhalation DAILY 08/24/20 11/14/23 with inhalation device (Spiriva with HandiHaler) cetirizine 10 mg tablet 10 mg PO DAILY 12/09/21 11/14/23 hydroxychloroquine 200 mg tablet 200 mg PO BID 12/09/21 11/14/23 cefdinir 300 mg capsule mg 12/31/23 Allergies Allergy/AdvReac Type Severity Reaction Status Date / Time lactase [From Dairy Aid] Allergy Severe Anaphylaxis Verified 11/14/23 19:07 NSAIDS (Non-Steroidal Allergy Severe Difficulty Verified 11/14/23 19:07 Anti-Inflamma Breathing sulfamethoxazole AdvReac Severe Wheezing Verified 11/14/23 19:07 trimethoprim AdvReac Severe Wheezing Verified 11/14/23 19:07 topiramate AdvReac Mild HALLUCINATI Verified 11/14/23 19:07 ONS Review of Systems Review of Systems: As reviewed above in HPI [facility] Past Medical History Medical History Anxiety Asthma Depression Fatty liver GERD (gastroesophageal reflux disease) Hypothyroid IBS (irritable bowel syndrome) Migraine (normal spontaneous vaginal delivery) x 3 PTSD (post-traumatic stress disorder) Rheumatoid arthritis Sleep apnea Status post hysteroscopy Surgical History Surgical History S/P endometrial ablation S/P tubal ligation Family History Family History Mother Family history non-contributory Social History Social History Smoking packs per day: 1.5 Smoking cigarettes per day: 30.0 Years smoked:
[2024-07-25 09:30] VITALS: BP 110/81; PULSE 82; RESP 18; TEMP 36.8; O2SAT 100
[2024-07-25] MEDS: ACETAMINOPHEN 500 MG TABLET 1000 MG PO (09:36)
[2024-07-25 11:50] VITALS: BP 112/79; PULSE 80; RESP 16; O2SAT 100
== END 2024-07-25 11:50 | disposition home or self-care (01) ==
PROVIDERS: Emergency Provider Student in an Organized Health Care Education/Training Program; PCP Nurse Practitioner
DX: M67.472 Ganglion, left ankle and foot (principal); J45.909 Unspecified asthma, uncomplicated; M06.9 Rheumatoid arthritis, unspecified; E03.9 Hypothyroidism, unspecified; K21.9 Gastro-esophageal reflux disease without esophagitis; K76.0 Fatty (change of) liver, not elsewhere classified; F41.9 Anxiety disorder, unspecified; F32.A Depression, unspecified; G47.30 Sleep apnea, unspecified; Z79.51 Long term (current) use of inhaled steroids; Z87.891 Personal history of nicotine dependence
CPT/HCPCS: 73610; 99283; A9270

== ENCOUNTER 2025-10-21 09:47 | Emergency (ER) | payer OTHER, SELFPAY ==
--- NOTE | ~2025-10-21 | XR_ITS ---
EXAMINATION: XR chest 2V, 10/21/2025 10:10 PARTY BUS DRIVER HISTORY: COUGH,RT COARSE, HX PNEUMONIA COMPARISON: No comparisons available. Technique: 2 views obtained. Findings: Small basilar infiltrates No pneumothorax. Heart is normal size. Mediastinal and hilar contours are within normal limits. Bony thorax no acute abnormality. Impression: Early bilateral pneumonia Reviewed, dictated and finalized at location P. Y BUS DRIVER Impression: Early bilateral pneumonia
[2025-10-21 09:52] VITALS: BP 127/80; PULSE 60; RESP 60; TEMP 37.1; O2SAT 100
--- NOTE | 2025-10-21 10:00 | ED.URI ---
HPI - URI/Sore Throat General Chief Complaint: Upper Respiratory Infection Stated Complaint: cough/chest congestion/headache Time Seen by Provider: 10/21/25 10:00 Source: patient, RN notes reviewed and old records reviewed Mode of arrival: ambulatory Limitations: no limitations History of Present Illness HPI Narrative: 35 year old female who presents to [facility] care with complaints of 4 weeks of cough, head congestion, sinus congestion and headache. Patient reports that cough is at times productive and frequent and she has a bad headache today. Patient reports that she has history of asthma and has used her inhaler without much relief. She states that she has been taken OTC severe sinus medication Mucinex, and Tylenol and Excedrin for her headache. MD elicited complaint: cough, rhinorrhea, nasal congestion, sinus pain and other (headache) Onset (ago): week(s) (4) Consistency: constant Pain scale (0-10): 6 Description of mucous: yellow Able to tolerate fluids by mouth: Yes Treatments prior to arrival: acetaminophen and other (severe sinus medication Mucinex, Excedrin and used inhaler) Related Data Home Medications ?Medication ?Instructions ?Recorded ?Confirmed ?Last Taken ?Type albuterol sulfate 90 mcg/actuation 1 inh inhalation Q4-6H PRN 05/10/20 11/14/23 05/17/20 06:50 History aerosol inhaler Shortness Of Breath ascorbic acid (vitamin C) 500 mg 500 mg PO DAILY 05/10/20 11/14/23 12/08/21 History capsule,extended release (Vitamin C) azelastine 205.5 mcg (0.15 %) 2 spray intranasal BID 05/10/20 11/14/23 12/11/21 History nasal spray elderberry fruit 460 mg-elderberry 1 cap PO DAILY 05/10/20 11/14/23 12/08/21 History flower 115 mg capsule fluticasone 232 mcg-salmeterol 14 1 inh inhalation BID PRN Shortness 05/10/20 11/14/23 12/12/21 History mcg/actuation breath activated Of Breath powdr fluticasone propionate 50 1 spray intranasal DAILY 05/10/20 11/14/23 12/11/21 History mcg/actuation nasal spray,suspension (Flonase Allergy Relief) montelukast 10 mg tablet 10 mg PO HS 05/10/20 11/14/23 12/11/21 History pantoprazole 40 mg tablet,delayed 40 mg PO QAM 05/10/20 11/14/23 05/16/20 History release (Protonix) brimonidine 0.15 %-dorzolamide 2 % 1 drp ophthalmic (eye) TID 08/24/20 11/14/23 12/12/21 History (PF) eye drops gabapentin 300 mg capsule 600 mg PO TID 08/24/20 11/14/23 12/12/21 History levothyroxine 175 mcg tablet 137 mcg PO DAILY 08/24/20 11/14/23 12/12/21 History tiotropium bromide 18 mcg capsule 1 cap inhalation DAILY 08/24/20 11/14/23 12/12/21 History with inhalation device (Spiriva with HandiHaler) cetirizine 10 mg tablet 10 mg PO DAILY 12/09/21 11/14/23 12/11/21 History hydroxychloroquine 200 mg tablet 200 mg PO BID 12/09/21 11/14/23 12/12/21 History cefdinir 300 mg capsule mg 12/31/23 Unknown History Allergies Allergy/AdvReac Type Severity Reaction Status Date / Time lactase (From Dairy Aid) Allergy Severe Anaphylaxis Verified 10/21/25 09:52 NSAIDS (Non-Steroidal Allergy Severe Difficulty Verified 10/21/25 09:52 Anti-Inflamma Breathing sulfamethoxazole AdvReac Severe Wheezing Verified 10/21/25 09:52 trimethoprim AdvReac Severe Wheezing Verified 10/21/25 09:52 topiramate AdvReac Mild HALLUCINATI Verified 10/21/25 09:52 ONS Review of Systems Review of Systems: CONSTITUTIONAL: Reports malaise, no chills, sweats, or fever. EYES: Denies visual changes, redness, or discharge. ENT: Reports rhinorrhea, congestion, sinus pain,no otalgia and no sore throat. CARDIOVASCULAR: Denies chest pain, palpitations, or edema. RESPIRATORY: Reports cough.? Denies dyspnea. GASTROINTESTINAL: Denies abdominal pain, nausea, vomiting, diarrhea SKIN: Denies rash or itching. MUSCULOSKELETAL: Denies myalgia. NEUROLOGIC:Reports headache. All systems reviewed & are unremarkable except as noted in HPI and below PMFSH Past Medical History Medical History Rheumatoid arthritis Status post hysteroscopy (normal spontaneous vaginal delivery) x 3 Migraine Anxiety Sleep apnea PTSD (post-traumatic stress disorder) Depression IBS (irritable bowel syndrome) Fatty liver Asthma GERD (gastroesophageal reflux disease) Hypothyroid Surgical History Surgical History History of cholecystectomy October of 2024 S/P tubal ligation S/P endometrial ablation Family History Family History Mother Family history non-contributory Social History Social History Smoking packs per day: 1.5 Smoking cigarettes per day: 30.0 Years smoked: 13 Smoking pack-years: 19.50 Smoking status: Former smoker Tobacco type: cigarettes Second hand tobacco smoke exposure: No Smoking end date: 11/19/15 Alcohol intake: current Drinks per week: 0 Alcohol use details: 1/YEAR Substance use: never Substance use type: does not use Last use: 2017 Living arrangements: with family Gender identity (if verbalized by the patient): Female Spiritual care concerns: No Comments At time of signature, agree with nursing past medical, surgical, social and family history. There is no relevant family history pertinent to the presenting complaint Exam Narrative: GENERAL: Well-appearing, well-nourished, and in no acute distress. HEAD: Normocephalic EYES: PERRLA, conjunctivae clear ENT: Nares clear, turbinates edematous and erythematous, clear yellow discharge, sinus pressure and headache.. Mucous membranes moist. TM pearly mcgill with dull light reflex bilaterally; no tragal tenderness. Oropharynx erythematous without lesions. Tonsils not enlarged and without exudate, no drooling, no hoarseness, no trismus, uvula midline.post nasal drainage NECK: Supple. No lymphadenopathy CHEST: crackles to lung bases on auscultation, breath sounds equal. No wheezing, rhonchi,+ rales, or stridor. No respiratory distress, speaks in full sentences.frequent dry and productive cough. HEART: Regular rate and rhythm. No murmur heard. SKIN: Warm, dry, no rash. NEURO: Alert and oriented x3. PSYCH: Normal mood and affect Course Course Level of Care: Express Care Visit Vital Signs Vital signs: Vital Signs Temperature 37.1 C 10/21/25 09:52 Pulse Rate 60 10/21/25 09:52 Respiratory Rate 60 H 10/21/25 09:52 Blood Pressure 127/80 10/21/25 09:52 Pulse Oximetry 100 10/21/25 09:52 Oxygen Delivery Room Air 10/21/25 09:52 Temperature 37.1 C 10/21/25 09:52 Pulse Rate 60 10/21/25 09:52 Respiratory Rate 60 H 10/21/25 09:52 Blood Pressure 127/80 10/21/25 09:52 Pulse Oximetry 100 10/21/25 09:52 Oxygen Delivery Room Air 10/21/25 09:52 reviewed MDM MDM Narrative Medical decision making narrative: 35 year old female who presents to express care with complaint fo 4 week duration of illness of sinus congestion, drainage, cough, and headache with no improvement in symptoms with use of inhaler and OTC medications. x-ray showing early bibasalar pneumonia will treat with antibiotic, steroid and inhaler with anticipatory guidance and strict instructions of reasons and symptoms to go to ED for further treatment and evaluation. Differential Diagnosis Differential Diagnosis: URI, acute cough,pneumonia bases, sinusitis,viral infection Imaging Data My impression: early bibasilar pneumonia Radiologist's impression: ITS Impressions Chest X-Ray 10/21/25 10:22 Impression: Early bilateral pneumonia Allergy/Adv: lactase, NSAIDS (Non-Steroidal Anti-Inflamma, sulfamethoxazole, trimethoprim, topiramate [place] [id number] XRay Report Signed Patient: Dorina Ratliff : 1990 MR#: [id number] Age: 35 Acct:[id number] Loc: [facility] ADM Date: 10/21/[address]: Ordering Physician: Jessica Gomez APRN Date of Service: 10/21/25 Procedure(s): XR chest 2V Accession Number(s): [id number] cc: Jamila, Anup LUTZ; Jessica Gomez APRN~ EXAMINATION: XR chest 2V, 10/21/2025 10:10 [facility] HISTORY: COUGH,RT COARSE, HX PNEUMONIA COMPARISON: No comparisons available. Technique: 2 views obtained. Findings: Small basilar infiltrates No pneumothorax. Heart is normal size. Mediastinal and hilar contours are within normal limits. Bony thorax no acute abnormality. Impression: Early bilateral pneumonia Reviewed, dictated and finalized at location [facility] Please be advised this is a medical document. It is intended for [id number] communication. It is written in medical language and may contain unfamiliar abbreviations or verbiage. Medical documents are intended to carry relevant information, facts as evident, and the clinical opinion of the practitioner at the time of the encounter. This report may have been done utilizing a voice recognition system. Attempts have been made to correct errors. However, there may be uncorrected grammatical, spelling, and recognition errors present. The file time of this note does not necessarily represent the time of service. Dictated By: Santos Lo MD 10/21/25 1022 Signed By: <Electronically signed by Santos Lo MD in OV> Critical Care Time Critical Care Time Critical Care Time: No Discharge Plan Discharge Clinical Impression: Pneumonia Qualifiers: Pneumonia type: due to unspecified organism Laterality: bilateral Lung location: lower lobe of lung Qualified Code(s): J18.9 - Pneumonia, unspecified organism Patient Disposition: Home Condition: Stable Instructions: Antibiotic Form, Bacterial Pneumonia (ED) Additional Instructions: Increase fluids especially juices and water [id number] cough and cold medicine of your choice for your symptoms Continue your inhaler/nebulizer as directed Steroids as directed--take with food Tylenol or ibuprofen for any fever or pain per package instructions heat to the face 20-30 minutes 4-6 times a day for pain Salt water gargles, throat lozenges or throat sprays as desired Antibiotic as directed--finished the medication If your symptoms persist, change or worsen significantly before you can contact your personal physician then please, without delay, go to the emergency department for further evaluation. Follow-up with PCP in 7-10 days or sooner if needed Patient Language: [place] Prescriptions: New azithromycin 500 mg tablet 500 mg PO DAILY 5 Days Qty: 5 0RF albuterol sulfate [Ventolin HFA] 90 mcg/actuation HFA aerosol inhaler 2 puff inhalation QID PRN (Reason: shortness of breath or wheezing) Qty: 8.5 0RF Rx Instructions: what ever is covered on insurance prednisone 20 mg tablet 40 mg PO DAILY Qty: 10 0RF No Action prednisone 20 mg tablet 20 mg PO BID 5 Days Qty: 10 0RF cefdinir 300 mg capsule azelastine 0.05 % drops 1 drp EACH EYE BID Qty: 6 0RF cefdinir 300 mg capsule 300 mg PO Q12H Qty: 20 0RF Rx Instructions: Take all medication as prescribed azelastine 0.05 % drops 1 drp EACH EYE BID 10 Days Qty: 6 0RF gabapentin 300 mg Capsule 600 mg PO TID tiotropium bromide [Spiriva with HandiHaler] 18 mcg Capsule, W/Inhalation Device 1 cap INHALATION DAILY brimonidine-dorzolamide (PF) 0.15-2 % Drops 1 drp OPHTHALMIC (EYE) TID levothyroxine 175 mcg Tablet 137 mcg PO DAILY cetirizine 10 mg Tablet 10 mg PO DAILY hydroxychloroquine 200 mg Tablet 200 mg PO BID pantoprazole [Protonix] 40 mg Tablet,Delayed Release (Dr/Ec) 40 mg PO QAM ascorbic acid (vitamin C) [Vitamin C] 500 mg Capsule, Extended Release 500 mg PO DAILY montelukast 10 mg Tablet 10 mg PO HS albuterol sulfate 90 mcg/actuation HFA aerosol inhaler 1 inh INHALATION Q4-6H PRN (Reason: Shortness Of Breath) fluticasone propionate [Flonase Allergy Relief] 50 mcg/actuation [place],Suspension 1 spray INTRANASAL DAILY azelastine 0.15 % (205.5 mcg) spray,non-aerosol 2 spray INTRANASAL BID fluticasone propion-salmeterol 232-14 mcg/actuation aerosol powdr breath activated 1 inh INHALATION BID PRN (Reason: Shortness Of Breath) elderberry fruit and flower 460-115 mg Capsule 1 cap PO DAILY Follow-up/Referrals: Jamila,MD Anup [Primary Care Provider, Unknown] Time of Disposition: 10:41 Quality [place] Coma Scale Eyes: Open Verbal: Oriented and Alert Motor: Follows Commands [place] Coma Total Score: 15
--- OUTSIDE RECORDS SUMMARY | 2025-10-21 10:47 | XMS_ITS | Encounter Summary ---
Author Organization [facility] Care Team Providers Care Military Equipment Specialist Name Role Phone Joe Lundberg MD Primary Care Provider [phone] Sandeep Zepeda Primary Care Provider [phone] Joe Lundberg MD Primary Care Provider [phone] ZepedaSandeep abarca [place] Primary Care Provider [phone] Shauna Wheat MD Unavailable [phone] Chris Butler OD Unavailable [phone] Sandoval Ponce MD, David Delmar Unavailable + Piper Headley MD Unavailable Sarah Hayes NP Primary Care Provider [phone] Anup Marino MD Primary Care Provider [phone] Encounter Details Date Type Department Care Team (Latest Contact Info) Description 09/05/2018 Orders Only [facility] ProviderSaw MD [address] [place] [id number] Social History Tobacco Use Types Packs/Day Years Used Date Smoking Tobacco: Never Assessed Comments Unknown Sex and Gender Information Value Date Recorded Sex Assigned at Not on file Legal Sex Female 1:38 PM CDT Gender Identity Female 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 us Historical Provider Final Res ult documented in this encounter Visit Diagnoses Not on filedocumented in this encounter Care Teams Military Equipment Specialist Relationship Specialty Start Date End Date Joe Lundberg MD PCP - General 09/03/18 01/26/19 Sandeep Zepeda, OLU PCP - General 01/27/19 02/09/19 Joe Lundberg MD PCP - General 02/10/19 10/17/19 Sandeep Zepeda, OLU PCP - General 10/18/19 07/15/24 Sarah Hayes NP [address] [place] [address] PCP - General Family Medicine 07/16/24 10/09/24 Anup Marino MD [address] [place] [address] PCP - General Family Medicine 10/10/24 Shauna Wheat MD [address] [place] [address] Referring Physician Ophthalmology 07/29/21 Chris Butler OD [address] [place] [address] Ophthalmology 07/29/21 Sylvester Nick Jr., MD [address] [place] [address] Consulting Physician Neurosurgery 07/29/21 Piper Headley MD [address] [place] [address] Anesthesiologist Pain Management 06/15/22 documented as of this encounter
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
--- OUTSIDE RECORDS SUMMARY | 2025-10-21 10:48 | XMS_ITS | Encounter Summary ---
Author Organization [facility] Healthcare Address [address] [place] [address] Care Team Providers Care Metal Spraying Machine Operator Name Role Phone Sandeep Zepeda PA Primary Care Provider [phone] Shauna Wheat MD Unavailable [phone] Chris Butler OD Unavailable [phone] Sandoval Ponce MD, Sylvester Teixeira Unavailable + Piper Headley MD Unavailable Sarah Hayes NP Primary Care Provider [phone] Anup Marino MD Primary Care Provider [phone] Reason for Visit * Reason Onset Date Comments Pre Arrival 03/13/2022 Encounter Details Date Type Department Care Team (Late st Contact Info) Description 03/13/2022 Telephone [facility] [place] [address] [facility] [address] [place] [address] Bernie Burgess, MAITE Pre Arrival Social History Tobacco Use Types Packs/Day Years Used Date Smoking Tobacco: Former Cigarettes 1.3 13 1 - 08/2016 Smokeless Tobacco: Never Alcohol Use Standard Drinks/Week Comments Yes 0 (1 standard drink = 0.6 oz pur e alcohol) rarely AUDIT-C Answer Date Recorded Q1: How often do you have a drink containing alc ohol? Never 03/06/2022 Average Number of Drinks Not on file 022 Q3: How often do you have si x or more drinks on one occasion? Never 03/06/2022 PHQ-2 Answer Date Recorded PHQ-2 Total Score (If total score is 3 or more points, staff should administer the PHQ-9) 0 08/01/2021 Comments No Sex and Gender Information Value Date Recorded Sex Assigned at Not on file Legal Sex Female 1:38 PM CDT Gender Identity Female 12/23/2020 8:29 AM TIPPLE BOSS Sexual Orientation Straight 12/23/2020 8: 29 AM TIPPLE BOSS documented as of this encounter Functional Status * In the past year, patient experienced: Question Answer Date of Assessment Author One or more falls in the las t year 2 03/16/2022 8:48 AM CDT Shaunna Harris RN How many times? 1 03/16/2022 8:48 AM CDT Shaunna Vargas RN Was the patient injured in t he fall? No 03/16/2022 8:48 AM Shaunna Montague RN Has trouble stepping up onto a curb 1 03/16/2022 8:48 AM Shaunna Montague RN Advised to use a cane or walker to get around safely 0 03/16/2022 8:48 AM Chad Montague RN Often has to singh to the toilet 1 03/16/2022 8:48 AM Shaunna Montague RN Feels unsteady when walking 1 03/16/2022 8: 48 AM Shaunna Montague RN Has lost some feeling in feet 1 03/16/2022 8:48 AM Shaunna Montague RN Steadies self on furniture while walking at home 03/16/2022 8:48 AM Shaunna Montague RN Takes medicine that makes him/her feel lightheaded or more tired than usual 1 03/16/2022 8:48 AM Shaunna Montague RN Worried about falling 1 03/16/2022 8:48 AM Shaunna Montague RN Takes medicine to sleep or improve mood 1 03/16/2022 8:48 AM CDT Shaunna Harris RN Needs to push with hands whe n rising from a chair 1 03/16/2022 8:48 AM CDT Shaunna Harris RN Often feels sad or depressed 0 03/16/2022 8 :48 AM KARUNAT Shaunna Harris RN STEADI Score Total 11 03/16/2022 8:48 AM CDT Shaunna Harris RN * Question Answer Date of Assessment Author MAP (mmHg) 90 03/16/2022 9:33 AM CDT Jessica Cannon RN documented as of this encounter Plan of Treatment Not on file documented as of this encounter Goals Goal Patient Goal Type Associated Problems Recent Progress Patient-Stated? Author CCM Chronic Pain Care Plan Chronic Care Management On track(2021 8:23 AM CDT) No Jessica Funk RN Note: Problem: Chronic Pain Goals: 1. Minimize further functional decline 2. Maximize quality of life 3. Control pain Strategies: - Activity/exercise program recommendation - Conservative stepwise pain medicine strategy with multi-disciplinary approach - Recommend healthy lifestyle strategies and compensatory methods as needed documented as of this encounter Visit Diagnoses Not on filedocumented in this encounter Care Teams Metal Spraying Machine Operator Relationship Specialty Start Date End Date Sandeep Zepeda PA PCP - General 10/18/19 07/15/24 Sarah Hayes NP [address] [place] [address] PCP - General Family Medicine 07/16/24 10/09/24 Anup Marino MD [address] [place] [address] PCP - General Family Medicine 10/10/24 Shauna Wheat MD [address] [place] [address] Referring Physician Ophthalmology 07/29/21 Chris Butler, DERIK [address] [place] [address] Ophthalmology 07/29/21 Sylvester Nick Jr., MD [address] [place] [id number] Consulting Physician Neurosurgery 07/29/21 Piper Headley MD [address] [place] [address] Anesthesiologist Pain Management 06/15/22 documented as of this encounter
--- OUTSIDE RECORDS SUMMARY | 2025-10-21 10:48 | XMS_ITS | Clinical Summary ---
Author Organization [facility] Address [address] [place] [address] Care Team Providers Care Associate Programmer Name Role Phone Anup Marino MD Primary Care Provider [phone] Source Comments [facility],non-owned Affiliates and Associated Physician Practices is amultiple site organization consisting of ambulatory clinics and hospital sitesin [place], [place], [place] and [place]. This disclosure is being madepursuant to the Care Everywhere program and may not contain all information available regarding this patient. Last updated 18.[facility] Allergies Active Allergy Reactions Criticality Noted Date Comments Amitriptyline Psychiatric Medium 09/10/2018 Hallucinations Ibuprofen Shortness of Breath High 12/10/2018 Milk-Related Compounds Swelling 11/17/2021 Naproxen Shortness of Breath,GI Discomfort High 12/10/2018 Sulfamethoxazole W-Trimethoprim Urticaria Medium 12/05/2018 Topiramate Psychiatric High 09/10/2018 Suicidal Medications * Be aware that medications may not be up to date on this document. Alwaysverify current medications with the patient. albuterol HFA (PROVENTIL;KAVITHA MARIA C;PROAIR) 108 (90 BASE) MCG/ACT inhalerIndicatio ns:Asthma Inhale 2 (two) puffs by mouth every 4 hours as needed Reasons: Asthma Active fluticasone propionate (FLONASE) 50 MCG/ACT nasal spray Narvon 2 (two) sprays into each nostril once daily Active vitamin D, ergocalciferol, (DRISDOL) 1.25 MG (90111 UT) capsule Take 1 (one) capsule by mouth Twice a week 1 05/21/20 19 Active montelukast (SINGULAIR) 10 MG tablet Take 1 (one) tablet by mouth once daily 6 08/27/20 19 Active azelastine (ASTEPRO) 205.5 MCG/SPRAY nasal spray Narvon 2 (two) sprays into each nostril 2 times daily Active cetirizine (ZYRTEC) 10 MG tablet Take 1 (one) tablet by mouth 2 times daily 09/20/20 21 Active EPINEPHrine (EPIPEN) 0.3 MG/0.3ML auto-injector pen Inject 0.3 mL into muscle as directed 09/20/20 21 Active ipratropium (ATROVENT) 0.03 % nasal spray Narvon 2 sprays into each nostril once daily as needed 09/20/20 21 Active Multiple Vitamin (MULTIVITAMIN ADULT PO) Take 1 capsule by mouth at bedtime Active mometasone (Elocon) 0.1 % ointmentIndicati ons:Irritant contact dermatitis due to other chemical products Apply to hands and elbows up to twice daily as needed. 30 days supply. 45 g 3 08/30/20 22 Active levothyroxine (Synthroid) 150 MCG tablet Take 175 mcg by mouth every morning 02/08/20 23 Active Tezspire 210 MG/1.91ML SOSY injection 03/08/20 23 Active Spiriva Respimat 1.25 MCG/ACT AERS 02/29/20 23 Active brimonidine-marcelino lol (Combigan) 0.2-0.5 % ophthalmic solution Instill 1 drop into both eyes 2 times daily 04/10/20 23 Active rizatriptan (Maxalt) 10 MG tabletIndication s:Migraine without aura and without status migrainosus, not intractable Take 1 tab by mouth once at first sign of migraine. May repeat one time after 2 hours if needed. 9 tablet 4 10/09/20 24 Active fluticasone-salm eterol hfa (Advair HFA) 230-21 MCG/ACT Inhale 2 (two) puffs by mouth 2 times daily Active butalbital-aceta minophen-caffein e (Fioricet) 50-300-40 MG capsuleIndicatio ns:Migraine without aura and without status migrainosus, not intractable Take 1 (one) capsule by mouth every 4 hours as needed for Headache 20 capsule 5 12/09/19 25 Active hydroxychloroqui ne (Plaquenil) 200 MG tabletIndication s:Antinuclear antibody (LORENA) titer greater than 1:80 Take 1 (one) tablet by mouth 2 times daily 180 tablet 1 12/16/19 25 Active Rosalva, Zingiber officinalis, 250 MG Take 1,000 mg by mouth once daily 02/18/20 25 Active magnesium oxide 250 MG tablet Take 2 (two) tablets by mouth once daily 02/18/20 25 Active Emgality 120 MG/ML auto-injector penIndications:C hronic daily headache,Migrain e without aura and without status migrainosus, not intractable,Benito ri malformation type I (HCC),MIRIAN (obstructive sleep apnea) INJECT 1 ML SUBCUTANEOUSLY ONCE EVERY MONTH 1 mL 5 05/04/20 25 Active Active Problems Problem Noted Date Diagnosed Date Angioedema 02/08/2023 Rhinitis 02/08/2023 Gastroesophageal reflux disease with hiatal danis ia 03/21/2022 Chronic cough 02/27/2022 Irritant contact dermatitis due to other chemica l products 02/15/2022 Dyshidrotic hand dermatitis 10/26/2021 Glaucoma 03/02/2021 Migraine 03/02/2021 Polycystic ovarian disease 12/05/2018 Asthma 12/05/2018 Hypothyroidism 12/05/2018 Sleep apnea, obstructive 12/05/2018 Post traumatic stress disorder (PTSD) 12/05/2018 Fatty liver 12/05/2018 Anxiety 12/05/2018 Iron deficiency anemia 12/05/2018 Right carpal tunnel syndrome Immunizations Immunization Administration Dates Next Due FLU VACCINE QUAD IIV4 SPLIT 0.25 ML IM 9,10/26/2017,01/23/2017 INFLUENZA VACCINE 01/24/2022,09/02/2019 TDAP (7yrs+) 01/15/2017 Family History Medical History Relation Name Comments Cancer - Ovarian Maternal Grandmother Thyroid Disease Maternal Grandmother Cancer - Colon Mother Hypertension Son Relation Name Status Comments Father unkn Other Maternal Grandmother Alive Mother Alive Son Alive Social History Tobacco Use Types Packs/Day Years Used Date Smoking Tobacco: Former Cigarettes 1 13.7 2 - 08/2017 Smokeless Tobacco: Never Alcohol Use Standard Drinks/Week Comments No 0 (1 standard drink = 0.6 oz pur e alcohol) very rarely PHQ-2 Answer Date Recorded Patient Health Questionnaire-2 Score 0 04/23/2025 Comments No Sex and Gender Information Value Date Recorded Sex Assigned at Not on file Legal Sex Female 12:21 PM TRAINING ASSISTANT Gender Identity Not on file Sexual Orientation Not on file Last Filed Vital Signs Vital Sign Reading Time Taken Comments Blood Pressure 120/74 02/26/2025 9:34 AM CDT Pulse 82 02/26/2025 9:34 AM CDT Temperature 36 C (96.8 F) 02/26/2025 9:34 AM CDT Respiratory Rate 10 11/05/2020 2:30 PM TRAINING ASSISTANT Oxygen Saturation 99% 02/03/2025 9:42 AM CDT Inhaled Oxygen Concentration - - Weight 108.4 kg (239 lb) 02/26/2025 9:34 AM CDT Height 182.9 cm (6' 0.01) 02/26/2025 9:34 AM CD T Body Mass Index 32.41 02/26/2025 9:34 AM CDT Plan of Treatment Upcoming Encounters Date Type Department Care Team (Late st Contact Info) Description 10/22/2025 9:30 AM TRAINING ASSISTANT Office Visit [facility] - Ophthalmology [address] [place] [phone] Zurdo Banda MD [address] [place] [address] [place] [phone] Health Maintenance Due Date Last Done Comments HIV SCREENING 2007 HEPATITIS B VACCINE (1 of 3 - 19+ 3-dose series) 2011 PNEUMOCOCCAL VACCINE (1 of 2 - PCV) 2011 HPV VACCINE (1 - 3-dose SCDM series) 2019 COVID-19 VACCINE (1 - season) 2025 INFLUENZA VACCINE (#1) 2025 2, 09/02/2019, 08/27/2019, Additional history exists DTAP/TDAP/TD VACCINES (2 - Td or Tdap) 01/15/2027 01/15/2017 ZOSTER VACCINE (1 of 2) 2042 HEPATITIS C SCREENING Completed 05/19/2021 DEPRESSION SCREENING Completed 04/23/2025, 08/30/20 22 HIB VACCINE Aged Out No longer eligi ble based on patient's age to complete this topic MENINGOCOCCAL (Group B) VACCINE SHARED DECISION-MAKING Aged Out No longer eligible based on patient's age to complete this topic MENINGOCOCCAL GROUPS A/C/Y/W VACCINE Aged Out No longer eligible based on patient's age to complete this topic Procedures Procedure Name Priority Date/Time Associated Diagnosis Comments HEPATITIS C AB SCREEN RFLX NAAT QUANT Routine 05/19/2021 9:31 AM CDT Pain in joint, multiple sites from Last 3 Months or Most Recently Relevant to Health Maintenance Results * HEPATITIS C AB SCREEN RFLX NAAT QUANT (05/19/2021 9:31 AM CDT) Hepatitis C Antibody Non-react shelley Non-reac tive 05/19/2021 1:08 PM CDT [facility] Comment:Hepatitis C Antibody screen indicates no serologic evidence of past or current infection with Hepatitis C Virus. Patients with unexplained liver disease who are immunocompromised or suspected of having acute Hepatitis C infection may benefit from Nucleic Acid Test (VIVIANE) for Hepatitis C Viral RNA to confirm Hepatitis C status. Blood BLOOD SPECIMEN / Unknown Lab Venipuncture / Unknown 05/19/2021 9:31 AM CDT 05/19/2021 10:50 AM CDT us Nini Quinones MD LAB - CHEMISTRY ORDERABLES Fi nal Result [facility] [address] [place] [phone], [facility] [phone] from Last 3 Months or Most Recently Relevant to Health Maintenance Insurance MEDICAID - OUT OF STATE [facility] Care Teams Associate Programmer Relationship Specialty Start Date End Date Anup Marino MD [address] [place] [address] PCP - General Family Medicine 02/12/25
--- OUTSIDE RECORDS SUMMARY | 2025-10-21 10:48 | XMS_ITS | Encounter Summary ---
Author Organization [facility] Address [address] [facility] [place] [address] Care Team Providers Care Grocery Deliverer Name Role Phone Sandeep Zepeda Primary Care Provider [phone] Unknown, Provider Primary Care Provider Anup Maguire MD Primary Care Provider [phone] Reason for Visit * Reason Onset Date Comments MEDICATION REFILL 01/17/2024 Encounter Details Date Type Department Care Team (Late st Contact Info) Description 01/17/2024 Refill [facility] - Neurology [address] [place] [address], [place] [phone] Tim Colon, REHABILITATION WORKER-JEWELRY ENGRAVER [address] [place] [address] [place] [phone] MEDICATION REFILL Social History Tobacco Use Types Packs/Day Years Used Date Smoking Tobacco: Former Cigarettes 1 13.7 2 004 - 08/2017 Smokeless Tobacco: Never Alcohol Use Standard Drinks/Week Comments No 0 (1 standard drink = 0.6 oz pur e alcohol) very rarely PHQ-2 Answer Date Recorded PHQ2 TOTAL SCORE 0 09/13/2022 Comments No Sex and Gender Information Value Date Recorded Sex Assigned at Not on file Legal Sex Female 12:21 PM DENTAL PRACTITIONER Gender Identity Not on file Sexual Orientation Not on file documented as of this encounter Miscellaneous Notes * Telephone Encounter - Osiel Yung MA - 01/17/2024 1:43 PM CST Refill Request Dorina Ratliff DESTINY: 08/27/2023Sep due: 4 month follow up NOV date: none scheduled Emgality 120 MG/mL auto-injector pen LRF: 08/27/2023 Quantity dispensed: 1 mL # refills: 5 Allergies: Allergies Allergen Reactions ??? Ibuprofen Shortness of Breath ??? Naproxen Shortness of Breath and GI Discomfort ??? Amitriptyline Psychiatric Hallucinations ??? Topiramate Psychiatric Suicidal ??? Septra [Sulfamethoxazole W-Trimethoprim] Urticaria ??? Milk-Related Compounds Swelling Pended Medication Order: Requested Prescriptions Pending Prescriptions Disp Refills ??? Galcanezumab-gnlm (Emgality) 120 MG/ML auto-injector pen 1 mL 5 Sig: Inject 1 mL subcutaneously every 30 days AL PRACTITIONER documented in this encounter Plan of Treatment Upcoming Encounters Date Type Department Care Team (Late st Contact Info) Description 10/22/2025 9:30 AM DENTAL PRACTITIONER Office Visit [facility] - Ophthalmology [address] [place] [phone] Zurdo Banda MD [address] [place] [address] [place] [phone] documented as of this encounter Visit Diagnoses Diagnosis Chronic daily headache Headache Migraine without aura and without status migrainosus, not intractable Migraine without aura, without mention of intractable migraine without mention of status migrainosus Chiari malformation type I (HCC) Compression of brain MIRIAN (obstructive sleep apnea) Obstructive sleep apnea (adult) (pediatric) documented in this encounter Care Teams Grocery Deliverer Relationship Specialty Start Date End Date Sandeep Zepeda PA [address] [place] [phone] PCP - General Physician Feed House Supervisor 12/10/18 11/16/24 Unknown, Provider PCP - General 11/17/24 02/11/25 Anup Marino MD [address] [place] [address] PCP - General Family Medicine 02/12/25 documented as of this encounter
== END 2025-10-21 10:47 | disposition home or self-care (01) ==
PROVIDERS: Emergency Provider Registered Nurse; PCP Hospitalist
DX: J18.9 Pneumonia, unspecified organism (principal); E03.9 Hypothyroidism, unspecified; K21.9 Gastro-esophageal reflux disease without esophagitis; J45.909 Unspecified asthma, uncomplicated; K76.0 Fatty (change of) liver, not elsewhere classified; M06.9 Rheumatoid arthritis, unspecified; Z87.891 Personal history of nicotine dependence
CPT/HCPCS: 71046; 99213; G0463

== ENCOUNTER 2025-10-26 10:00 | Emergency (ER) | payer OTHER, SELFPAY ==
--- NOTE | ~2025-10-26 | XR_ITS ---
Examination: XR chest 2V Clinical History: cough, recent pneumonia Comparison: 10/21/2025 Technique: PA and Lateral Findings: Cardiomediastinal silhouette normal size and configuration. Lungs clear. No acute bony abnormality. IMPRESSION: 1. No acute cardiopulmonary findings. Reviewed, dictated and finalized at location R. AND MARBLE SETTER
[2025-10-26 10:06] VITALS: BP 142/90; PULSE 65; RESP 20; TEMP 36.4; O2SAT 100
--- NOTE | 2025-10-26 11:00 | ED.URI ---
HPI - URI/Sore Throat General Chief Complaint: Upper Respiratory Infection Stated Complaint: Light Head/Chest Congestion/Cough Time Seen by Provider: 10/26/25 10:40 Source: patient and RN notes reviewed Mode of arrival: ambulatory Limitations: no limitations History of Present Illness HPI Narrative: 35-year-old female presents Express Care complaining of upper respiratory symptoms. Patient recently here last week for was diagnosed with pneumonia, sent home on steroids and azithromycin. Patient said she started to feel somewhat better however her symptoms are worsening. Patient's per not feeling well, worsening cough, chest congestion. Patient denies any chest pain, difficulty breathing, nausea vomiting, diarrhea, fevers, body aches, chills, or any other symptoms. Patient has a history of pneumonia. Patient denies any significant past medical history. Patient said she could not follow-up with her PCP yet said that she to get another chest x-ray 1st. Related Data Home Medications ?Medication ?Instructions ?Recorded ?Confirmed ?Last Taken ?Type albuterol sulfate 90 mcg/actuation 1 inh inhalation Q4-6H PRN 05/10/20 11/14/23 05/17/20 06:50 History aerosol inhaler Shortness Of Breath ascorbic acid (vitamin C) 500 mg 500 mg PO DAILY 05/10/20 11/14/23 12/08/21 History capsule,extended release (Vitamin C) azelastine 205.5 mcg (0.15 %) 2 spray intranasal BID 05/10/20 11/14/23 12/11/21 History nasal spray elderberry fruit 460 mg-elderberry 1 cap PO DAILY 05/10/20 11/14/23 12/08/21 History flower 115 mg capsule fluticasone 232 mcg-salmeterol 14 1 inh inhalation BID PRN Shortness 05/10/20 11/14/23 12/12/21 History mcg/actuation breath activated Of Breath powdr fluticasone propionate 50 1 spray intranasal DAILY 05/10/20 11/14/23 12/11/21 History mcg/actuation nasal spray,suspension (Flonase Allergy Relief) montelukast 10 mg tablet 10 mg PO HS 05/10/20 11/14/23 12/11/21 History pantoprazole 40 mg tablet,delayed 40 mg PO QAM 06/22/20 12/27/23 06/28/20 History release (Protonix) brimonidine 0.15 %-dorzolamide 2 % 1 drp ophthalmic (eye) TID 08/24/20 11/14/23 12/12/21 History (PF) eye drops gabapentin 300 mg capsule 600 mg PO TID 08/24/20 11/14/23 12/12/21 History levothyroxine 175 mcg tablet 137 mcg PO DAILY 08/24/20 11/14/23 12/12/21 History tiotropium bromide 18 mcg capsule 1 cap inhalation DAILY 08/24/20 11/14/23 12/12/21 History with inhalation device (Spiriva with HandiHaler) cetirizine 10 mg tablet 10 mg PO DAILY 12/09/21 11/14/23 12/11/21 History hydroxychloroquine 200 mg tablet 200 mg PO BID 12/09/21 11/14/23 12/12/21 History cefdinir 300 mg capsule mg 12/31/23 Unknown History Allergies Allergy/AdvReac Type Severity Reaction Status Date / Time lactase (From Dairy Aid) Allergy Severe Anaphylaxis Verified 10/26/25 10:08 NSAIDS (Non-Steroidal Allergy Severe Difficulty Verified 10/26/25 10:08 Anti-Inflamma Breathing sulfamethoxazole AdvReac Severe Wheezing Verified 10/26/25 10:08 trimethoprim AdvReac Severe Wheezing Verified 10/26/25 10:08 topiramate AdvReac Mild HALLUCINATI Verified 10/26/25 10:08 ONS Review of Systems Review of Systems: CONSTITUTIONAL: Denies fever, chills, body aches or sweats. EYES: Denies visual changes, redness, or discharge. ENT: Denies rhinorrhea, congestion, sore throat, or otalgia. CARDIOVASCULAR: Denies chest pain, palpitations, or edema. RESPIRATORY: Positive for cough and chest congestion. Negative for wheezing or dyspnea. GASTROINTESTINAL: Denies abdominal pain, nausea, vomiting, or diarrhea. GENITOURINARY: Denies dysuria or hematuria. SKIN: Denies rash or itching. MUSCULOSKELETAL: Denies back pain, joint pain, or myalgia. NEUROLOGIC: Denies headache, numbness, or weakness. PSYCHIATRIC: Denies anxiety or depression. All other systems reviewed are negative, except as documented in HPI. [facility] Past Medical History Medical History Rheumatoid arthritis Status post hysteroscopy (normal spontaneous vaginal delivery) x 3 Migraine Anxiety Sleep apnea PTSD (post-traumatic stress disorder) Depression IBS (irritable bowel syndrome) Fatty liver Asthma GERD (gastroesophageal reflux disease) Hypothyroid Surgical History Surgical History History of cholecystectomy October of 2024 S/P tubal ligation S/P endometrial ablation Family History Family History Mother Family history non-contributory Social History Social History Smoking packs per day: 1.5 Smoking cigarettes per day: 30.0 Years smoked: 13 Smoking pack-years: 19.50 Smoking status: Former smoker Tobacco type: cigarettes Second hand tobacco smoke exposure: No Smoking end date: 11/19/15 Alcohol intake: current Drinks per week: 0 Alcohol use details: 1/YEAR Substance use: never Substance use type: does not use Last use: 2017 Living arrangements: with family Gender identity (if verbalized by the patient): Female Spiritual care concerns: No Comments At the time of my signature, I reviewed and agree with the nursing past medical, surgical, social, and family history. There is no relevant family history pertinent to the patient complaint. Exam Narrative: GENERAL: This is a well-nourished, well-developed adult, in no apparent distress. They are non ill-appearing, nontoxic appearing. HEAD: normocephalic, atraumatic. EYES: Sclera clear/white. Conjunctiva normal. Vision is grossly intact. Extraocular movements intact EARS: External ears normal, auditory canals clear and without drainage, TMs normal without perforation. Hearing grossly intact. NOSE: External nose normal with no obvious nasal discharge, nasal turbinates without redness, no rhinorrhea. THROAT: Mucous membranes moist, posterior pharynx boggy without erythema. Uvula midline. Postnasal drip present. NECK: Neck supple, non-tender without lymphadenopathy, masses or thyromegaly. CARDIOVASCULAR: Regular rate and rhythm without murmurs, gallops, or rubs. RESPIRATORY: Clear to auscultation. Breath sounds equal bilaterally. No wheezes, rales, or rhonchi. Respiratory rate normal, respiratory effort nonlabored, no respiratory distress SKIN: warm, Dry, intact with no suspicious lesions or rash, good texture and turgor. NEURO: awake, alert, and oriented to person, place and time. There were no obvious focal neurologic abnormalities. EXTREMITIES: No joint tenderness, effusion, or edema noted. BACK: Nontender without deformity. Course Course Level of Care: Express Care Visit Vital Signs Vital signs: Vital Signs Temperature 97.6 F 10/26/25 10:06 Pulse Rate 65 10/26/25 10:06 Respiratory Rate 20 10/26/25 10:06 Blood Pressure 142/90 H 10/26/25 10:06 Pulse Oximetry 100 10/26/25 10:06 Oxygen Delivery Room Air 10/26/25 10:06 Temperature 97.6 F 10/26/25 10:06 Pulse Rate 65 10/26/25 10:06 Respiratory Rate 20 10/26/25 10:06 Blood Pressure 142/90 H 10/26/25 10:06 Pulse Oximetry 100 10/26/25 10:06 Oxygen Delivery Room Air 10/26/25 10:06 MDM MDM Narrative Medical decision making narrative: Chest x-ray negative for any acute cardiopulmonary findings. Given patient's persistent symptoms and recent pneumonia diagnosis, will go ahead and treat her with Augmentin. Advised patient have close follow-up with PCP sleeve symptoms are not improving on this course of antibiotics. Patient verbalized understanding. Strict ER precautions discussed especially if she develops fevers, chest pain, difficulty breathing, worsening symptoms, weakness, confusion, or any serious concerns. Discussed physical exam findings. Advised supportive measures and signs/symptoms to go to the ER. Pt is appropriate for outpt treatment and f/u. Differential Diagnosis Differential Diagnosis: Pneumonia, bronchitis, viral illness, upper respiratory infection, sinusitis Imaging Data Radiologist's impression: ITS Impressions Chest X-Ray 10/26/25 10:26 IMPRESSION: 1. No acute cardiopulmonary findings. Critical Care Time Critical Care Time Critical Care Time: No Discharge Plan Discharge Clinical Impression: Pneumonia Qualifiers: Pneumonia type: due to unspecified organism Laterality: unspecified laterality Lung location: unspecified part of lung Qualified Code(s): J18.9 - Pneumonia, unspecified organism Patient Disposition: Home Condition: Stable Instructions: Antibiotic Form, Community Acquired Pneumonia (ED) Additional Instructions: Take antibiotics as directed until complete. eat small frequent meals. Get lots of rest and drink fluids. Alternate Tylenol and ibuprofen for pain/fever follow instructions on the bottle Call your Primary Care Doctor and make a follow-up appointment in 3 days. Go to the ER for worsening symptoms, chest pain, breathing problems, fevers, vomiting, loss of consciousness, or any serious concerns. Patient Language: New Zealander Prescriptions: New amoxicillin-pot clavulanate 875-125 mg tablet 1 tablet PO Q12H 7 Days Qty: 14 0RF No Action prednisone 20 mg tablet 20 mg PO BID 5 Days Qty: 10 0RF cefdinir 300 mg capsule azelastine 0.05 % drops 1 drp EACH EYE BID Qty: 6 0RF azithromycin 500 mg tablet 500 mg PO DAILY 5 Days Qty: 5 0RF albuterol sulfate [Ventolin HFA] 90 mcg/actuation HFA aerosol inhaler 2 puff inhalation QID PRN (Reason: shortness of breath or wheezing) Qty: 8.5 0RF Rx Instructions: what ever is covered on insurance prednisone 20 mg tablet 40 mg PO DAILY Qty: 10 0RF cefdinir 300 mg capsule 300 mg PO Q12H Qty: 20 0RF Rx Instructions: Take all medication as prescribed azelastine 0.05 % drops 1 drp EACH EYE BID 10 Days Qty: 6 0RF gabapentin 300 mg Capsule 600 mg PO TID tiotropium bromide [Spiriva with HandiHaler] 18 mcg Capsule, W/Inhalation Device 1 cap INHALATION DAILY brimonidine-dorzolamide (PF) 0.15-2 % Drops 1 drp OPHTHALMIC (EYE) TID levothyroxine 175 mcg Tablet 137 mcg PO DAILY cetirizine 10 mg Tablet 10 mg PO DAILY hydroxychloroquine 200 mg Tablet 200 mg PO BID pantoprazole [Protonix] 40 mg Tablet,Delayed Release (Dr/Ec) 40 mg PO QAM ascorbic acid (vitamin C) [Vitamin C] 500 mg Capsule, Extended Release 500 mg PO DAILY montelukast 10 mg Tablet 10 mg PO HS albuterol sulfate 90 mcg/actuation HFA aerosol inhaler 1 inh INHALATION Q4-6H PRN (Reason: Shortness Of Breath) fluticasone propionate [Flonase Allergy Relief] 50 mcg/actuation [place],Suspension 1 spray INTRANASAL DAILY azelastine 0.15 % (205.5 mcg) spray,non-aerosol 2 spray INTRANASAL BID fluticasone propion-salmeterol 232-14 mcg/actuation aerosol powdr breath activated 1 inh INHALATION BID PRN (Reason: Shortness Of Breath) elderberry fruit and flower 460-115 mg Capsule 1 cap PO DAILY Follow-up/Referrals: Jamila,MD Anup [Primary Care Provider, Unknown] Stand Alone Forms: Work/School Release IP Time of Disposition: 10:43
== END 2025-10-26 10:49 | disposition home or self-care (01) ==
PROVIDERS: PCP Hospitalist
DX: J18.9 Pneumonia, unspecified organism (principal); E03.9 Hypothyroidism, unspecified; K21.9 Gastro-esophageal reflux disease without esophagitis; J45.909 Unspecified asthma, uncomplicated; K76.0 Fatty (change of) liver, not elsewhere classified; M06.9 Rheumatoid arthritis, unspecified; Z87.891 Personal history of nicotine dependence
CPT/HCPCS: 71046; 99213; G0463